=== PATIENT | female | born 1970 | race Caucasian/White ===

== ENCOUNTER → 2016-08-30 | Outpatient (REF) | payer OTHER, MEDICARE ==
[~2016-08-30] MED LIST: AUGM875T27 PO; BENADRYL PO; CALCIUM W/ VIT D PO; COLACE PO; COUM1TAB19 PO; IRON CR PO; OMEPPOW18 PO; VICODIN PO
== END ==
LOC: M LAB REF 16:35
PROVIDERS: ATTEND Physician Assistant
DX: J02.9 Acute pharyngitis, unspecified (principal)

== ENCOUNTER → 2016-11-30 | Outpatient (CLI) | payer OTHER, MEDICARE ==
[~2016-11-30] MED LIST changes: -AUGM875T27 PO; +AUGM875T28 PO
[2016-11-30 13:08] LABS: BASO % 0.4 % (0.0-1.0); EOS # 0.3 K/mm3 (0.0-0.50); EOS % 3.7 % (0.0-3.0); LARGE UNSTAINED CELL # 0.2 K/mm3 (0.0-0.4); LARGE UNSTAINED CELL % 2.3 % (0.0-4.0); LYMPH # 2.5 K/mm3 (1.5-4.5); LYMPH % 28.8 % (24.0-44.0); MEAN CORPUSCULAR HEMOGLOBIN 30.6 pg (27.0-33.0); MEAN CORPUSCULAR HGB CONC 33.6 g/dl (32.0-36.5); MEAN CORPUSCULAR VOLUME 90.9 fl (80.0-96.0); MONO # 0.4 K/mm3 (0.0-0.8); MONO % 4.6 % (0.0-5.0); NEUTROPHILS # 4.8 K/mm3 (1.8-7.7); NEUTROPHILS % 60.2 % (36.0-66.0); PLATELET COUNT, AUTOMATED 205 k/mm3 (150-450); RED CELL DISTRIBUTION WIDTH 12.8 % (11.5-14.5)
[2016-11-30 13:33] LABS: ANION GAP 9 MEQ/L (8-16); BLOOD UREA NITROGEN 8 MG/DL (7-18); CALCIUM LEVEL 8.8 MG/DL (8.5-10.1); CARBON DIOXIDE LEVEL 25 MEQ/L (21-32); CHLORIDE LEVEL 109 MEQ/L (98-107); CREATININE FOR GFR 0.74 MG/DL (0.55-1.02); GLOMERULAR FILTRATION RATE > 60.0 (>58); GLUCOSE, FASTING 92 MG/DL (70-105); SODIUM LEVEL 143 MEQ/L (136-145); URIC ACID 7.5 MG/DL (2.6-6.0)
[2016-11-30 13:35] LABS: ERYTHROCYTE SEDIMENTATION RATE 30 mm/hr (0-20)
[2016-12-02 00:07] LABS: Lyme Disease IgG/IgM Antibodie <0.91 ISR (0.00-0.90); Lyme Disease IgM Ab Quantitati <0.80 index (0.00-0.79); SJOGREN'S ANTI SS-A <0.2 AI (0.0-0.9); SJOGREN'S ANTI SS-B <0.2 AI (0.0-0.9)
== END ==
LOC: M WUC 09:39
PROVIDERS: ATTEND Family Medicine
DX: M25.50 Pain in unspecified joint (principal)

== ENCOUNTER → 2017-01-17 | Outpatient (CLI) | payer BC, OTHER, MEDICARE ==
--- NOTE | 2017-01-17 16:44 | REP ---
Clinical: Acute cough . Comparison: 12/02/2013 . Technique: PA and lateral. Findings: The mediastinum and cardiac silhouette are normal. The lung pfeiffer are clear and without acute consolidation, effusion, or pneumothorax. The skeletal structures are intact and normal. Impression: 1. No acute cardiopulmonary process. Signed by Jarrell Yoder MD 01/17/2017 04:35 P
== END ==
LOC: M WUC 16:21
PROVIDERS: ATTEND Family Medicine
DX: R05 Cough (principal)

== ENCOUNTER → 2017-09-08 | Outpatient (CLI) | payer BC, OTHER, MEDICARE | LOC: M PLARAD 09:36 | DX: M79.641 Pain in right hand (principal); M79.642 Pain in left hand | CPT/HCPCS: 73218 ==

== ENCOUNTER → 2017-11-10 | Outpatient (CLI) | payer BC, OTHER, MEDICARE ==
[2017-11-22 00:08] LABS: BABESIA MICROTI PCR Negative (Negative); E CHAFFEENSIS IgG TITER Negative (Neg:<1:64); E CHAFFEENSIS IgM TITER Negative (Neg:<1:20); HUMAN GRANULCYTIC EHRLIC IgG Negative (Neg:<1:64); HUMAN GRANULCYTIC EHRLIC IgM Negative (Neg:<1:20); Lyme Disease IgG/IgM Antibodie <0.91 ISR (0.00-0.90); Lyme Disease IgM Ab Quantitati <0.80 index (0.00-0.79)
== END ==
LOC: M WUC 10:57
DX: M25.50 Pain in unspecified joint (principal)
CPT/HCPCS: 36415

== ENCOUNTER → 2018-02-16 | Outpatient (CLI) | payer OTHER, BC, MEDICARE ==
[2018-02-16 13:07] LABS: BASO % 0.5 % (0.0-1.0); EOS # 0.4 10^3/uL (0.0-0.50); EOS % 4.6 % (0.0-3.0); HEMATOCRIT 44.5 % (36.0-47.0); HEMOGLOBIN 14.1 g/dl (12.0-15.5); IMMATURE GRANULOCYTE % 0.2 % (0-3.0); LYMPH # 2.5 10^3/uL (1.5-4.5); LYMPH % 29.3 % (24.0-44.0); MEAN CORPUSCULAR HEMOGLOBIN 29.6 pg (27.0-33.0); MEAN CORPUSCULAR HGB CONC 31.7 g/dl (32.0-36.5); MEAN CORPUSCULAR VOLUME 93.3 fl (80.0-96.0); MONO # 0.6 10^3/uL (0.0-0.8); MONO % 6.7 % (0.0-5.0); NEUTROPHILS % 58.7 % (36.0-66.0); PLATELET COUNT, AUTOMATED 216 10^3/uL (150-450); RED BLOOD COUNT 4.77 10^6/uL (4.00-5.40); RED CELL DISTRIBUTION WIDTH 12.7 % (11.5-14.5); WHITE BLOOD COUNT 8.5 10^3/uL (4.0-10.0)
[2018-02-16 13:54] LABS: ALBUMIN 3.3 GM/DL (3.2-5.2); ALBUMIN/GLOBULIN RATIO 0.94 (1.00-1.93); ALKALINE PHOSPHATASE 132 U/L (45-117); ALT/SGPT 20 U/L (12-78); ANION GAP 8 MEQ/L (8-16); AST/SGOT 15 U/L (7-37); BILIRUBIN,TOTAL 0.3 MG/DL (0.2-1.0); BLOOD UREA NITROGEN 13 MG/DL (7-18); CALCIUM LEVEL 8.4 MG/DL (8.5-10.1); CARBON DIOXIDE LEVEL 30 MEQ/L (21-32); CHLORIDE LEVEL 105 MEQ/L (98-107); CREATININE FOR GFR 0.81 MG/DL (0.55-1.30); FERRITIN 213 NG/ML (8-252); GLOMERULAR FILTRATION RATE > 60.0 (>58); GLUCOSE, FASTING 60 MG/DL (70-100); IRON (FE) 52 UG/DL (50-170); PERCENT SATURATION 21.1 % (13.2-45.0); PHOSPHORUS LEVEL 2.7 MG/DL (2.5-4.9); POTASSIUM SERUM 4.6 MEQ/L (3.5-5.1); SODIUM LEVEL 143 MEQ/L (136-145); TOTAL IRON BINDING CAPACITY 247 UG/DL (250-450); TOTAL PROTEIN 6.8 GM/DL (6.4-8.2)
[2018-02-16 14:55] LABS: TOTAL 25(OH) VITAMIN D 31.9 NG/ML (30.0-100.0)
== END ==
LOC: M WUC 10:02
DX: Z98.84 Bariatric surgery status (principal)

== ENCOUNTER → 2018-07-16 | Outpatient (CLI) | payer OTHER, BC, MEDICARE ==
[~2018-07-16] MED LIST changes: +BENA25TA10 PO; +CALCTAB29 PO; +MULT1TAB10 PO; +NYSTOI TOP; +PRAM0.126 PO; +PRED10TA2 PO; +STOO100C PO; +VITA500046 PO; +iron PO
[2018-07-16 10:07] LABS: BASO % 0.5 % (0.0-1.0); EOS # 0.2 10^3/uL (0.0-0.50); EOS % 2.7 % (0.0-3.0); HEMATOCRIT 44.1 % (36.0-47.0); HEMOGLOBIN 13.8 g/dl (12.0-15.5); LYMPH # 2.1 10^3/uL (1.5-4.5); LYMPH % 25.4 % (24.0-44.0); MEAN CORPUSCULAR HEMOGLOBIN 29.3 pg (27.0-33.0); MEAN CORPUSCULAR HGB CONC 31.3 g/dl (32.0-36.5); MEAN CORPUSCULAR VOLUME 93.6 fl (80.0-96.0); MONO # 0.5 10^3/uL (0.0-0.8); MONO % 5.5 % (0.0-5.0); NEUTROPHILS # 5.4 10^3/uL (1.8-7.7); NEUTROPHILS % 65.7 % (36.0-66.0); PLATELET COUNT, AUTOMATED 224 10^3/uL (150-450); RED BLOOD COUNT 4.71 10^6/uL (4.00-5.40); WHITE BLOOD COUNT 8.2 10^3/uL (4.0-10.0)
[2018-07-16 10:31] LABS: ALBUMIN 3.4 GM/DL (3.2-5.2); ALT/SGPT 26 U/L (12-78); BILIRUBIN,TOTAL 0.5 MG/DL (0.2-1.0); BLOOD UREA NITROGEN 11 MG/DL (7-18); CARBON DIOXIDE LEVEL 30 MEQ/L (21-32); CHLORIDE LEVEL 104 MEQ/L (98-107); GLOMERULAR FILTRATION RATE > 60.0 (>58); GLUCOSE, FASTING 92 MG/DL (70-100); POTASSIUM SERUM 4.9 MEQ/L (3.5-5.1); SODIUM LEVEL 141 MEQ/L (136-145); TOTAL PROTEIN 6.8 GM/DL (6.4-8.2)
== END ==
LOC: M WUC 08:43
PROVIDERS: ATTEND Family Medicine
DX: Z01.812 Encounter for preprocedural laboratory examination (principal)

== ENCOUNTER → 2018-07-16 | Outpatient (CLI) | payer BC, OTHER, MEDICARE ==
--- NOTE | 2018-07-16 14:35 | ECGEPIP ---
Stationary ECG Study [facility] Test Date: 2018-07-16 Pat Name: BRIAN CR Department: Room: - Gender: F Dietitian Therapeutic: WILMA : 1970 Requested By: Albert Johnson Order Number: [id number] Reading MD: Minesh Little Measurements Intervals [place] Rate: 78 P: 73 AL: 146 QRS: 70 QRSD: 121 T: 100 QT: 378 QTc: 431 Interpretive Statements SINUS RHYTHM Intraventricular conduction delay NONSPECIFIC T-WAVE ABNORMALITY Comparison tracing not on file Electronically Signed On 07-16-2018 14:35:33 EST by Minesh Little
== END ==
LOC: M EKG 10:22
PROVIDERS: ATTEND Family Medicine
DX: Z01.812 Encounter for preprocedural laboratory examination (principal)

== ENCOUNTER 2018-07-26 05:50 | Day surgery (SDC) | payer BC, OTHER, MEDICARE ==
[~2018-07-26] VITALS: Ht 165.1 cm; Wt 193.9 kg
[2018-07-26] MEDS ORDERED: LR 1,000 ML IV ONE (06:00)
[2018-07-26] MEDS ORDERED: PERCOCET 5MG/325MG TAB PO ONE (06:00)
[2018-07-26] MEDS ORDERED: LOVE1INJ SC (06:27)
[2018-07-26 06:39] LABS: INR 1.07
[2018-07-26] MEDS ORDERED: LIDOCAINE 2% INJ 100 MG/5 ML SDV (FOR ANES.) As Ordered ONE (06:51)
[2018-07-26] MEDS ORDERED: ONDANSETRON 4MG/2ML VIAL (J2405) As Ordered ONE (06:51)
[2018-07-26] MEDS ORDERED: PROPOFOL 200 MG/20 ML VIAL As Ordered ONE (06:51)
[2018-07-26] MEDS ORDERED: dexameTHASONE 4 MG/ML 1ML VIAL (J1100) As Ordered ONE (06:51)
[2018-07-26] MEDS ORDERED: fentaNYL 100 MCG/2 ML INJECTION (J3010) As Ordered ONE (06:52)
[2018-07-26] MEDS ORDERED: MIDAZOLAM INJ 2 MG/2 ML VIAL (J2250) As Ordered ONE (06:52)
[2018-07-26] MEDS ORDERED: KETOROLAC 60 MG/2 ML VIAL (J1885) As Ordered ONE (06:53)
[2018-07-26] MEDS ORDERED: BUPIVACAINE/EPIN 0.25% 30 ML VIAL As Ordered ONE (07:12)
[2018-07-26] MEDS ORDERED: ACETAMINOPHEN 1000MG 100ML IV BTL (OFIRMEV) (J0131 PER 10MG) As Ordered ONE (08:14)
[2018-07-26] MEDS ORDERED: oxyCODONE 5MG TAB PO PRN (08:30)
[2018-07-26] MEDS ORDERED: fentaNYL 100 MCG/2 ML INJECTION (J3010) IV PRN (08:30)
[2018-07-26] MEDS ORDERED: LR 1,000 ML IV SCH (08:45)
[2018-07-26] MEDS ORDERED: PERCOCET 5MG/325MG TAB PO PRN (08:45)
[2018-07-26 09:30] VITALS: BP 166/66
--- NOTE | 2018-07-26 13:01 | RO ---
DATE OF PROCEDURE: 07/26/2018 PREOPERATIVE DIAGNOSIS: Right upper extremity median neuropathy. POSTOPERATIVE DIAGNOSIS: Right upper extremity median neuropathy. PROCEDURE PERFORMED: Right open carpal tunnel release. SURGEON: Dr. Yash King PATIENT REGISTRATION REPRESENTATIVE: ANESTHESIA: Local, monitored anesthesia care (MAC). ESTIMATED BLOOD LOSS: Less than 15 mL, replaced with crystalloid. COMPLICATIONS: None. 3.5 loupe magnification was utilized for the case. INDICATIONS: Paresthesias right upper extremity. Electrodiagnostic studies reflect median neuropathy. The patient has failed to improve with conservative management and elected for operative intervention. CONSENT: Reviewed in detail including a naye discussion of the pathology involved, the procedure proposed, alternatives including doing nothing and the risks including, but not limited to pain, failure, infection, bleeding, blood loss, incomplete relief of symptoms, nerve injury, need for additional surgery, medical issues such as pulmonary embolism, and need for bridge therapy. The patient agrees to proceed. OPERATIVE COURSE: Identified in holding area, site and side verified, brought to the operating room once she was sedated and was prepped with alcohol. The line of the incision was based on the fourth ray and infiltrated with 0.25% Marcaine with epinephrine. I made the incision with a 15 blade knife and developed down through skin and subcuticular tissues to the palmaris fascia which was divided exposing the transverse carpal ligament. Next, the transverse carpal ligament was divided with a 15 blade entering the carpal tunnel. Dissection was continued sharply proximally and distally under direct visualization. I verified complete release of the transverse carpal ligament by palpating with a blunt probe. Next, once this was accomplished, irrigation was accomplished and the wound was closed with interrupted nylon stitch. Dressing was applied and the patient was then moved to recovery room in good condition. For further details, please refer to the medical record.
== END 2018-07-26 09:30 | disposition home or self-care (01) ==
LOC: M SDC 05:50
PROVIDERS: ATTEND Orthopaedic Surgery
DX: G56.01 Carpal tunnel syndrome, right upper limb (principal); K21.9 Gastro-esophageal reflux disease without esophagitis; M15.0 Primary generalized (osteo)arthritis; R21 Rash and other nonspecific skin eruption; E66.01 Morbid (severe) obesity due to excess calories; Z68.44 Body mass index [BMI] 60.0-69.9, adult; Z79.899 Other long term (current) drug therapy; Z79.01 Long term (current) use of anticoagulants; Z86.711 Personal history of pulmonary embolism; Z95.828 Presence of other vascular implants and grafts; Z87.891 Personal history of nicotine dependence; Z79.52 Long term (current) use of systemic steroids; Z98.84 Bariatric surgery status; Z78.0 Asymptomatic menopausal state
CPT/HCPCS: 36415; 64721; 85610; J0131; J1100; J1885; J2250; J2405; J3010

== ENCOUNTER → 2018-11-08 | Outpatient (CLI) | payer BC, OTHER, MEDICARE ==
[~2018-11-08] MED LIST changes: +LOVE1INJ SC
--- NOTE | 2018-11-08 14:10 | REP ---
Cervical spine seven views: Vertebral body heights, interspacing alignment are normal C1-C7. T1 is obscured by the shoulders. There is no listhesis on flexion or extension. The facets are normally aligned. The prevertebral soft tissues are. There are surgical clips in the soft tissues of the neck on the right. There is no bony foraminal encroachment. Impression: Negative cervical spine C1-C7. Kilos obscured by the shoulders. Follow-up CT or MRI might be considered to evaluate T1. There are surgical clips in the soft tissues on the right. Electronically Signed by Rajinder Fortune MD 11/08/2018 11:06 A
== END ==
LOC: M WUC 09:15
PROVIDERS: ATTEND Internal Medicine Rheumatology
DX: M79.603 Pain in arm, unspecified (principal)

== ENCOUNTER → 2019-06-06 | Outpatient (CLI) | payer BC, OTHER, MEDICARE ==
[~2019-06-06] MED LIST changes: +MM S100C PO; -STOO100C PO
[2019-06-06 12:39] LABS: BASO # 0.1 10^3/uL (0.0-0.2); BASO % 0.6 % (0.0-1.0); EOS # 0.2 10^3/uL (0.0-0.5); EOS % 2.6 % (0.0-3.0); HEMATOCRIT 44.9 % (36.0-47.0); HEMOGLOBIN 13.3 g/dl (12.0-15.5); LYMPH # 1.9 10^3/uL (1.5-5.0); LYMPH % 20.5 % (24.0-44.0); MEAN CORPUSCULAR HEMOGLOBIN 27.2 pg (27.0-33.0); MEAN CORPUSCULAR HGB CONC 29.6 g/dl (32.0-36.5); MEAN CORPUSCULAR VOLUME 91.8 fl (80.0-96.0); MONO # 0.7 10^3/uL (0.0-0.8); MONO % 7.7 % (0.0-5.0); NEUTROPHILS # 6.2 10^3/uL (1.5-8.5); PLATELET COUNT, AUTOMATED 219 10^3/uL (150-450); RED BLOOD COUNT 4.89 10^6/uL (4.00-5.40); WHITE BLOOD COUNT 9.1 10^3/uL (4.0-10.0)
[2019-06-06 12:46] LABS: ALBUMIN 3.3 GM/DL (3.2-5.2); ALT/SGPT 20 U/L (12-78); BILIRUBIN,TOTAL 0.3 MG/DL (0.2-1.0); BLOOD UREA NITROGEN 16 MG/DL (7-18); CARBON DIOXIDE LEVEL 29 MEQ/L (21-32); CHLORIDE LEVEL 107 MEQ/L (98-107); CREATININE FOR GFR 0.73 MG/DL (0.55-1.30); GLOMERULAR FILTRATION RATE > 60.0 (>51); GLUCOSE, FASTING 82 MG/DL (70-100); POTASSIUM SERUM 4.8 MEQ/L (3.5-5.1); SODIUM LEVEL 142 MEQ/L (136-145); TOTAL PROTEIN 6.6 GM/DL (6.4-8.2)
[2019-06-06 14:07] LABS: ERYTHROCYTE SEDIMENTATION RATE 32 mm/hr (0-30)
== END ==
LOC: M WUC 09:32
PROVIDERS: ATTEND Family Medicine
DX: M25.50 Pain in unspecified joint (principal)

== ENCOUNTER → 2019-11-05 | Outpatient (CLI) | payer BC, OTHER, MEDICARE ==
[2019-11-05 13:03] LABS: HEMATOCRIT 42.3 % (36.0-47.0); HEMOGLOBIN 12.8 g/dl (12.0-15.5); MEAN CORPUSCULAR HEMOGLOBIN 27.2 pg (27.0-33.0); MEAN CORPUSCULAR HGB CONC 30.3 g/dl (32.0-36.5); MEAN CORPUSCULAR VOLUME 89.8 fl (80.0-96.0); PLATELET COUNT, AUTOMATED 234 10^3/uL (150-450); RED BLOOD COUNT 4.71 10^6/uL (4.00-5.40)
[2019-11-05 13:32] LABS: ERYTHROCYTE SEDIMENTATION RATE 35 mm/hr (0-30)
[2019-11-05 13:35] LABS: ALBUMIN 3.3 GM/DL (3.2-5.2); ALT/SGPT 16 U/L (12-78); BILIRUBIN,TOTAL 0.2 MG/DL (0.2-1.0); BLOOD UREA NITROGEN 15 MG/DL (7-18); CALCIUM LEVEL 9.3 MG/DL (8.5-10.1); CARBON DIOXIDE LEVEL 31 MEQ/L (21-32); CHLORIDE LEVEL 109 MEQ/L (98-107); CREATININE FOR GFR 0.74 MG/DL (0.55-1.30); GLOMERULAR FILTRATION RATE > 60.0 (>51); GLUCOSE, FASTING 77 MG/DL (70-100); POTASSIUM SERUM 4.6 MEQ/L (3.5-5.1); SODIUM LEVEL 141 MEQ/L (136-145); TOTAL PROTEIN 6.8 GM/DL (6.4-8.2)
[2019-11-05 14:09] LABS: HEMOGLOBIN A1c 6.2 %
== END ==
LOC: M WUC 09:08
PROVIDERS: ATTEND Family Medicine
DX: R70.0 Elevated erythrocyte sedimentation rate (principal); Z79.899 Other long term (current) drug therapy

== ENCOUNTER → 2020-04-20 | Outpatient (CLI) | payer MEDICARE, OTHER, BC ==
[2020-04-20 10:35] LABS: HEMOGLOBIN 13.7 g/dl (12.0-15.5); MEAN CORPUSCULAR HEMOGLOBIN 27.3 pg (27.0-33.0); MEAN CORPUSCULAR HGB CONC 30.4 g/dl (32.0-36.5); MEAN CORPUSCULAR VOLUME 89.8 fl (80.0-96.0); PLATELET COUNT, AUTOMATED 264 10^3/uL (150-450); RED BLOOD COUNT 5.01 10^6/uL (4.00-5.40); WHITE BLOOD COUNT 8.1 10^3/uL (4.0-10.0)
[2020-04-20 10:52] LABS: ERYTHROCYTE SEDIMENTATION RATE 46 mm/hr (0-30)
[2020-04-20 11:17] LABS: ALBUMIN 3.5 GM/DL (3.2-5.2); ALT/SGPT 22 U/L (12-78); BILIRUBIN,TOTAL 0.5 MG/DL (0.2-1.0); BLOOD UREA NITROGEN 12 MG/DL (7-18); CALCIUM LEVEL 9.4 MG/DL (8.5-10.1); CARBON DIOXIDE LEVEL 29 MEQ/L (21-32); CHLORIDE LEVEL 106 MEQ/L (98-107); CREATININE FOR GFR 0.77 MG/DL (0.55-1.30); GLOMERULAR FILTRATION RATE > 60.0 (>51); GLUCOSE, FASTING 88 MG/DL (70-100); POTASSIUM SERUM 4.8 MEQ/L (3.5-5.1); SODIUM LEVEL 140 MEQ/L (136-145)
== END ==
LOC: M WUC 08:36
PROVIDERS: ATTEND Family Medicine
DX: R70.0 Elevated erythrocyte sedimentation rate (principal); Z79.899 Other long term (current) drug therapy

== ENCOUNTER → 2020-08-20 | Outpatient (REF) | payer MEDICARE, OTHER ==
[2020-08-20 17:19] LABS: TOTAL PROTEIN,RANDOM URINE 17.2 MG/DL (0.0-12.0)
[2020-08-20 17:21] LABS: ALT/SGPT 20 U/L (12-78); BILIRUBIN,DIRECT 0.1 MG/DL (0.0-0.2); BILIRUBIN,TOTAL 0.3 MG/DL (0.2-1.0); BLOOD UREA NITROGEN 15 MG/DL (7-18); C REACTIVE PROTEIN QUANTITATIV 2.11 MG/DL (0.00-0.30); CARBON DIOXIDE LEVEL 26 MEQ/L (21-32); CHLORIDE LEVEL 106 MEQ/L (98-107); COMPLEMENT C3 161 MG/DL (90-180); COMPLEMENT C4 22 MG/DL (10-40); CPK CREATINE PHOSPHOKINASE 56 U/L (26-192); CREATININE FOR GFR 0.83 MG/DL (0.55-1.30); GLOMERULAR FILTRATION RATE > 60.0 (>51); GLUCOSE, FASTING 121 MG/DL (70-100); IRON (FE) 38 UG/DL (50-170); MAGNESIUM LEVEL 2.6 MG/DL (1.8-2.4); PHOSPHORUS LEVEL 3.8 MG/DL (2.5-4.9); POTASSIUM SERUM 4.3 MEQ/L (3.5-5.1); RHEUMATOID FACTOR QUANT 11.5 IU/ML (<15.0); SODIUM LEVEL 140 MEQ/L (136-145); TOTAL PROTEIN 7.6 GM/DL (6.4-8.2)
[2020-08-20 17:26] LABS: BASO # 0.1 10^3/uL (0.0-0.2); BASO % 0.4 % (0.0-1.0); EOS # 0.2 10^3/uL (0.0-0.5); EOS % 1.5 % (0.0-3.0); HEMATOCRIT 47.4 % (36.0-47.0); HEMOGLOBIN 14.9 g/dl (12.0-15.5); LYMPH # 3.1 10^3/uL (1.5-5.0); LYMPH % 23.5 % (24.0-44.0); MEAN CORPUSCULAR HEMOGLOBIN 27.4 pg (27.0-33.0); MEAN CORPUSCULAR HGB CONC 31.4 g/dl (32.0-36.5); MEAN CORPUSCULAR VOLUME 87.3 fl (80.0-96.0); MONO # 0.6 10^3/uL (0.0-0.8); MONO % 4.9 % (2.0-8.0); NEUTROPHILS # 9.1 10^3/uL (1.5-8.5); NEUTROPHILS % 69.4 % (36.0-66.0); PLATELET COUNT, AUTOMATED 322 10^3/uL (150-450); RED BLOOD COUNT 5.43 10^6/uL (4.00-5.40); TOTAL 25(OH) VITAMIN D 36.8 NG/ML (30.0-100.0); WHITE BLOOD COUNT 13.1 10^3/uL (4.0-10.0)
[2020-08-20 17:27] LABS: VITAMIN B12 LEVEL 637 PG/ML (247-911)
[2020-08-20 18:16] LABS: APPEARANCE, URINE HAZY (CLEAR); BACTERIA, URINE AUTO 1+ (NEGATIVE); BILIRUBIN, URINE AUTO NEGATIVE (NEGATIVE); BLOOD, URINE BLOOD NEGATIVE (NEGATIVE); COLOR, URINE YELLOW (YELLOW); GLUCOSE, URINE (UA) AUTO NEGATIVE (NEGATIVE); KETONE, URINE AUTO NEGATIVE (NEGATIVE); LEUKOCYTE ESTERASE, URINE AUTO NEGATIVE (NEGATIVE); MUCUS, URINE SMALL (NEGATIVE); NITRITE, URINE AUTO POSITIVE (NEGATIVE); PROTEIN, URINE AUTO NEGATIVE (NEGATIVE); RBC, URINE AUTO 4 /HPF (0-3); SPECIFIC GRAVITY URINE AUTO 1.016 (1.002-1.035); SQUAMOUS EPITHELIAL CELL UR AU 1 /HPF (0-6); WBC, URINE AUTO 4 /HPF (0-3)
[2020-08-20 18:49] LABS: ERYTHROCYTE SEDIMENTATION RATE 27 mm/hr (0-30)
[2020-08-24 10:57] LABS: ALBUMIN 4.07 GM/DL (3.29-5.55); ALBUMIN % 53.6 % (55.8-66.1); ALPHA-1-GLOBULIN % 5.7 % (2.9-4.9); ALPHA-1-GLOBULINS 0.43 GM/DL (0.17-0.41); ALPHA-2-GLOBULINS 1.17 GM/DL (0.42-0.99); ALPHA-2-GLOBULINS % 15.4 % (7.1-11.8); BETA-1-GLOBULINS 0.53 GM/DL (0.28-0.60); BETA-2-GLOBULINS 0.49 GM/DL (0.19-0.55); BETA-2-GLOBULINS % 6.5 % (3.2-6.5); GAMMA GLOBULIN % 11.8 % (11.1-18.8)
[2020-08-26 10:51] LABS: PTT LUPUS TYPE ANTICOAG SCREEN 2.6 (0-1.2)
[2020-08-26 10:58] LABS: LUPUS CONFIRM RATIO 1.4
[2020-08-26 11:02] LABS: NORMALIZED RATIO 1.86 (0.00-1.20)
[2020-08-27 15:07] LABS: ANA (HEP2) Positive (.); ANTI CENTROMERE ANTIBODY <0.2 AI (0.0-0.9); ANTI DS-DNA AB Negative (Negative); ANTI SCLERODERMA ANTIBODIES <0.2 AI (0.0-0.9); ANTI SMITH(Sm) AB <20 Units (<20); ANTI-HISTONE ANTIBODIES 0.3 Units (0.0-0.9); ANTI-U1 RNP AB <20 Units (<20); BETA-2 GLYCOPROTEIN I ABY IGA <9 (0-25); BETA-2 GLYCOPROTEIN I ABY IGG 20 (0-20); BETA-2 GLYCOPROTEIN I ABY IGM >150 (0-32); CARDIOLIPIN IGA ANTIBODY <9 APL U/mL (0-11); CARDIOLIPIN IGG ANTIBODY 27 GPL U/mL (0-14); CARDIOLIPIN IGM ANTIBODY 118 MPL U/mL (0-12); COMPLEMENT TOTAL (CH50) > 60 U/mL (>41); CYCLIC CITRULLINATED PEPTIDE 6 units (0-19); SSA SJOGRENS A <0.2 AI (0.0-0.9); SSB SJOGRENS B <0.2 AI (0.0-0.9)
[2020-08-28 03:12] LABS: HEXAGONAL PHASE PHOSPHOLIPID 9 sec (0-11)
== END ==
LOC: M SFHCRHEU 15:31
PROVIDERS: ATTEND Internal Medicine
DX: M06.4 Inflammatory polyarthropathy (principal); M79.10 Myalgia, unspecified site; Z79.899 Other long term (current) drug therapy
CPT/HCPCS: 80048; 80076; 81001; 82306; 82550; 82570; 82607; 83520; 83540; 83735; 84100; 84156; 84165; 85025; 85598; 85613; 85652; 85730; 86038; 86140; 86146; 86147; 86160; 86162; 86200; 86225; 86235; 86255; 86431; G0463

== ENCOUNTER → 2020-08-25 | Outpatient (CLI) | payer MEDICARE, OTHER ==
--- NOTE | 2020-08-25 12:20 | REPPI ---
INDICATION: INFLAMMATORY ARTHRITIS. COMPARISON: None. FINDINGS: Right hand: There is rather symmetric appearing intra digital joint space narrowing and particularly affecting the DIP joints of the 3rd and 5th digits. There is minimal marginal osteophytosis seen involving the DIP joints of the 2nd through 5th digits. There is no evidence of periarticular osteopenia and there are no marginal erosions. There is no evidence of an acute fracture, dislocation, or subluxation. Left hand: There is moderate rather symmetric appearing intra digital joint space narrowing affecting all DIP joints. More mild to moderate rather symmetric appearing joint space narrowing is seen involving the PIP joints of digits 2 through 5. The interphalangeal joint of the 1st digit is seen with mild symmetric narrowing. Mild marginal osteophytosis seen involving all DIP joints. There are no marginal erosions and there is no evidence of periarticular osteopenia. There is no acute fracture, dislocation, or subluxation. IMPRESSION: Degenerative changes as described above. <Electronically signed by Rashad Perry > 08/25/20 [id number]
--- NOTE | 2020-08-25 12:49 | REPPI ---
INDICATION: INFLAMMATORY ARTHRITIS. COMPARISON: None. TECHNIQUE: Four views of each foot FINDINGS: Right foot: Mild to moderate intra digital degenerative changes are seen without prominent marginal osteophytosis, marginal erosions, or naye periarticular osteopenia. There is slightly asymmetric intra digital joint space narrowing. Moderate degenerative changes are seen throughout the midfoot. Large plantar and retrocalcaneal heel spurs are present. There is no evidence of an acute fracture. Left foot: Mild to moderate intra digital degenerative changes are seen without prominent marginal osteophytosis, marginal erosions, or naye periarticular osteopenia. Mild to moderate somewhat asymmetric intra digital joint space narrowing is present. Mild to moderate degenerative changes seen throughout the midfoot. Large plantar and retrocalcaneal heel spurs are present. There is no evidence of acute fracture. IMPRESSION: Chronic changes seen bilaterally as described above. <Electronically signed by Rashad Perry > 08/25/20 [id number]
--- NOTE | 2020-08-25 13:11 | REPPI ---
INDICATION: INFLAMMATORY ARTHRITIS. COMPARISON: None. TECHNIQUE: Four views each ankle FINDINGS: Right ankle: There is no acute fracture or destructive osseous lesion. The mortise is intact. There is either an accessory ossicle or an old healed fracture arising from the distal fibular tip. Left ankle: There is no acute fracture or destructive osseous lesion. The mortise is intact. IMPRESSION: No acute abnormality is noted. Findings as described above. Please review the bilateral foot report for more information. <Electronically signed by Rashad Perry > 08/25/20 [id number]
--- NOTE | 2020-08-25 13:13 | REPPI ---
INDICATION: INFLAMMATORY ARTHRITIS. COMPARISON: None TECHNIQUE: Four views each wrist FINDINGS: Right wrist: There is no acute fracture or destructive osseous lesion. Left wrist: There is no acute fracture or destructive osseous lesion. IMPRESSION: Negative bilateral wrist study. <Electronically signed by Rashad Perry > 08/25/20 [id number]
== END ==
LOC: M PLAIMG 10:37
PROVIDERS: ATTEND Internal Medicine
DX: M06.4 Inflammatory polyarthropathy (principal); M19.041 Primary osteoarthritis, right hand; M19.042 Primary osteoarthritis, left hand

== ENCOUNTER → 2021-02-04 | Outpatient (REF) | payer MEDICARE, OTHER ==
[2021-02-04 16:02] LABS: BASO % 0.5 % (0.0-1.0); EOS # 0.2 10^3/uL (0.0-0.5); EOS % 1.7 % (0.0-3.0); HEMATOCRIT 46.5 % (36.0-47.0); HEMOGLOBIN 14.8 g/dl (12.0-15.5); LYMPH % 22.6 % (24.0-44.0); MEAN CORPUSCULAR HEMOGLOBIN 28.1 pg (27.0-33.0); MEAN CORPUSCULAR HGB CONC 31.8 g/dl (32.0-36.5); MEAN CORPUSCULAR VOLUME 88.2 fl (80.0-96.0); MONO # 0.5 10^3/uL (0.0-0.8); MONO % 5.4 % (2.0-8.0); NEUTROPHILS % 69.3 % (36.0-66.0); PLATELET COUNT, AUTOMATED 252 10^3/uL (150-450); RED BLOOD COUNT 5.27 10^6/uL (4.00-5.40); WHITE BLOOD COUNT 8.7 10^3/uL (4.0-10.0)
[2021-02-04 16:10] LABS: APPEARANCE, URINE CLEAR (CLEAR); BACTERIA, URINE AUTO NEGATIVE (NEGATIVE); BILIRUBIN, URINE AUTO NEGATIVE (NEGATIVE); BLOOD, URINE BLOOD NEGATIVE (NEGATIVE); COLOR, URINE YELLOW (YELLOW); GLUCOSE, URINE (UA) AUTO NEGATIVE (NEGATIVE); KETONE, URINE AUTO NEGATIVE (NEGATIVE); LEUKOCYTE ESTERASE, URINE AUTO NEGATIVE (NEGATIVE); MUCUS, URINE SMALL (NEGATIVE); NITRITE, URINE AUTO NEGATIVE (NEGATIVE); PROTEIN, URINE AUTO NEGATIVE (NEGATIVE); RBC, URINE AUTO 0 /HPF (0-3); SQUAMOUS EPITHELIAL CELL UR AU 1 /HPF (0-6); UROBILINOGEN, URINE AUTO 0.2 mg/dL (0.0-2.0); WBC, URINE AUTO 1 /HPF (0-3)
[2021-02-04 16:26] LABS: CREATININE,RANDOM URINE 50.7 MG/DL; TOTAL PROTEIN,RANDOM URINE 8.1 MG/DL (0.0-12.0)
[2021-02-04 16:28] LABS: ALBUMIN 3.7 GM/DL (3.2-5.2); ALT/SGPT 19 U/L (12-78); BILIRUBIN,DIRECT 0.1 MG/DL (0.0-0.2); BILIRUBIN,TOTAL 0.3 MG/DL (0.2-1.0); BLOOD UREA NITROGEN 12 MG/DL (7-18); C REACTIVE PROTEIN QUANTITATIV 1.22 MG/DL (0.00-0.30); CALCIUM LEVEL 9.3 MG/DL (8.5-10.1); CARBON DIOXIDE LEVEL 29 MEQ/L (21-32); CHLORIDE LEVEL 106 MEQ/L (98-107); COMPLEMENT C3 162 MG/DL (90-180); COMPLEMENT C4 26 MG/DL (10-40); CREATININE FOR GFR 0.74 MG/DL (0.55-1.30); GLOMERULAR FILTRATION RATE > 60.0 (>51); GLUCOSE, FASTING 92 MG/DL (70-100); IRON (FE) 42 UG/DL (50-170); MAGNESIUM LEVEL 2.1 MG/DL (1.8-2.4); POTASSIUM SERUM 4.3 MEQ/L (3.5-5.1); SODIUM LEVEL 140 MEQ/L (136-145); TOTAL PROTEIN 7.4 GM/DL (6.4-8.2)
[2021-02-04 17:34] LABS: ERYTHROCYTE SEDIMENTATION RATE 9 mm/hr (0-30)
[2021-02-08 15:07] LABS: ANTI DS-DNA AB Negative (Negative); COMPLEMENT TOTAL (CH50) > 60 U/mL (>41)
== END ==
LOC: M SFHCRHEU 12:51
PROVIDERS: ATTEND Internal Medicine
DX: M32.19 Other organ or system involvement in systemic lupus erythematosus (principal); E61.1 Iron deficiency; M70.60 Trochanteric bursitis, unspecified hip
CPT/HCPCS: 36415; 80048; 80076; 81001; 82570; 83540; 83735; 84156; 85025; 85652; 86140; 86160; 86162; 86225; G0463

== ENCOUNTER 2021-04-17 12:07 | Inpatient (IN) | payer MEDICARE, OTHER ==
[~2021-04-17] VITALS: Ht 172.7 cm; Wt 189.7 kg
--- OUTSIDE RECORDS SUMMARY | 2021-04-17 12:15 | CCD ---
Author Author [facility] Organization [facility] Address Unknown Phone Unavailable Care Team Providers Care Coffee Host Name Role Phone Flora Spencer Unavailable PROBLEMS Type Condition ICD9-CM Code [id number] Code Onset Dates Condition S tatus W/U Status Risk SNOMED Code Notes Problem Morbid obesity 278.01 Active confirmed 22598 6002 Problem Primary hypercoagulable state 289.81 Active confirm ed 25912197 Problem Anxiety state, unspecified 300.00 Active confirmed 374326521 Problem Personal history of venous thrombosis and embolism V12.51 Active confirmed 078064370 Problem Nondependent tobacco use disorder 305.1 Active confirmed 781609250 Problem Pain of upper extremity, unspecified laterality M7 9.603 Active confirmed 300703053 Problem Generalized osteoarthritis M15.9 Active confirmed 809585883 Problem Depressive disorder, not elsewhere classified 311 Active confirmed 91558191 Problem 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 Active confirmed 4 89489577 Problem Hypertension, benign 401.1 Active confirmed 28026830 Problem 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 Active confirmed 774893991 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 Active confirmed 00627581291629904 Problem Systemic lupus erythematosus with other organ involvement, unspecified SLE type M32.19 Active confirmed 36160432 Problem Antiphospholipid antibody syndrome D68.61 Activ e confirmed 56153126 ALLERGIES No Known Allergies ENCOUNTERS from 1970 to 2021-03-05 Encounter Location Date Provider Diagnosis [facility] Rheumatology [address] [place] [address] [place] [id number] Feb, Flora Spencer Systemic lupus erythematosus with other organ involvement, unspecified SLE type M32.19 IMMUNIZATIONS No Information SOCIAL HISTORY Tobacco Use: Social History Observation Description Date Details (start date - stop date) Current Smoker Sex Assigned At : Social History Observation Description Sex Assigned At Unknown Alcohol Screening: Question Answer Notes Did you have a drink containing alcohol in the past year? Ye s Points 3 Interpretation Positive How often did you have six or more drinks on one occas ion in the past year? Never (0 points) How many drinks did you have on a typica l day when you were drinking in the past year? 1 or 2 (0 points) How often did you have a drink containing alcohol in t he past year? Two to three times per week (3 points) Tobacco Use: Question Answer Notes Are you a: current smoker How many cigarettes a day do you smoke? 6-10 does not smoke every day REASON FOR REFERRAL No Information VITAL SIGNS No information MEDICATIONS Medication SIG (Take, Route, Frequency, Duration) Notes Start Da te End Date Status Multi For Her - 1 Tablet Orally once daily Active Tylenol Extra Strength 500 MG 2 tablets as needed Oral ly every 8 hours as needed Active Benadryl 25 MG 2 tablets Orally as needed for sleep Active Nystatin 245490 UNIT/GM as directed External Daily Active Ferrous Sulfate 325 (65 Fe) MG 2 tablet Orally once a day Active Docusate Sodium 50 MG 2 capsules as needed Orally Once a day Active Pramipexole Dihydrochloride 0.125 MG 1 tablet Oral Once a day, u p to 2 daily Active Warfarin Sodium 3 MG 1 tablet Monday through , and 4 mg on Monday Oral Active Calcium + D 600-200 MG-UNIT 1200 MG Orally Once a day Active Zinc 50 MG 1 tablet Orally Once a day for 30 day(s) Jan Active Vitamin D 1000 units 1 tablet Orally daily for 30 day(s) Active Oxygen 2L 2 litres nasal cannula qHS for 8-10h during slee p for 30 day(s) Nov, Active predniSONE 10 MG 1/2 to 1 tablet Oral Daily Active Plaquenil 200 MG 1 tab Orally bid for 90 day(s) Oct, Active PROCEDURES No Information RESULTS No Results REASON FOR VISIT Medication Refill Request: Hydroxychloroquine MEDICAL (GENERAL) HISTORY Type Description Date Medical History Protein C & S deficency Medical History Morbid Obestiy Medical History Hypertension Medical History Lipedema Medical History Multi-vitamin deficency Medical History Chronic anti-coagulation Medical History PE x 2 Medical History DVT hx Medical History Depression Medical History Anxiety Medical History Intertrigo Medical History Unconfirmed sleep apnea Medical History Anemia Medical History Arthritis Surgical History [place] Filter 1997 Surgical History Tonsils and adenoids 1975 Surgical History Gastric bypass 06/02/2010 Surgical History Cholecystectomy 2013 Surgical History Right carpal tunnel release 2019 Hospitalization History Surgery related Goals Section No Information Health Concerns No Information MEDICAL EQUIPMENT No Information MENTAL STATUS No Information FUNCTIONAL STATUS No Information ASSESSMENTS Encounter Date Diagnosis Assessment Notes Treatment Notes Treatm ent Clinical Notes Feb, Systemic lupus erythematosus with other organ involvement, unspecified SLE type (ICD-10 - M32.19) PLAN OF TREATMENT Medication Medication Name Sig Start Date Stop Date Plaquenil 200 MG 1 tab Orally bid for 90 day(s) Oct, Next Appt Details Provider Name:Flora Spencer, 2021-06-07 11:45:00 AM, [address] [place] [address], [place], [place], [facility] [phone] Insurance Providers Payer Name Payer Address Payer Phone Insured Name Patient Relati onship to Insured Coverage Start Date Coverage End Date MEDICARE Part A and B [address] [facility] [phone] BRIAN CR [facility] [address] [facility] [id number] BRIAN CR [id number]
--- OUTSIDE RECORDS SUMMARY | 2021-04-17 12:15 | CCD ---
Author Author [facility] Organization [facility] Address Unknown Phone Unavailable Care Team Providers Care Registered Medical Assistant Name Role Phone Flora Spencer Unavailable PROBLEMS Type Condition ICD9-CM Code VQN16-OF Code Onset Dates Condition S tatus W/U Status Risk SNOMED Code Notes Problem Morbid obesity 278.01 Active confirmed 44796 6002 Problem Primary hypercoagulable state 289.81 Active confirm ed 83793465 Problem Anxiety state, unspecified 300.00 Active confirmed 662846422 Problem Personal history of venous thrombosis and embolism V12.51 Active confirmed 676904284 Problem Nondependent tobacco use disorder 305.1 Active confirmed 481496601 Problem Pain of upper extremity, unspecified laterality M7 9.603 Active confirmed 725314144 Problem Generalized osteoarthritis M15.9 Active confirmed 171590040 Problem Depressive disorder, not elsewhere classified 311 Active confirmed 06847368 Problem 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 Active confirmed 4 13350963 Problem Hypertension, benign 401.1 Active confirmed 97447879 Problem 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 Active confirmed 221657661 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 Active confirmed 19509755946150888 Problem Systemic lupus erythematosus with other organ involvement, unspecified SLE type M32.19 Active confirmed 59367725 Problem Antiphospholipid antibody syndrome D68.61 Activ e confirmed 45180691 ALLERGIES No Known Allergies ENCOUNTERS from 1970 to 2021-02-18 Encounter Location Date Provider Diagnosis [facility] Rheumatology [address] [place] [address] [place] [address] Jan, Flora Spencer Systemic lupus erythematosus with other organ involvement, unspecified SLE type M32.19 ; Iron deficiency E61.1 ; Trochanteric bursitis, unspecified laterality M70.60 ; FDC systemic steroid 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 Z79.52 ; 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 ; Myalgia M79.10 ; Lipoedema R60.9 ; Generalized osteoarthritis M15.9 and High risk medication use Z79.899 IMMUNIZATIONS No Information SOCIAL HISTORY Tobacco Use: [...] REASON FOR REFERRAL No Information VITAL SIGNS Weight 413.2 lbs Jan, Weight-kg 187.43 kg Jan, Height 68 in Jan, BMI 62.82 kg/m2 Jan, Heart Rate 95 /min Jan, Respiratory Rate 18 /min Jan, Temperature 97.6 degrees Fahrenheit Jan, Oximetry 95 Jan, Blood pressure systolic 134 mm Hg Jan, Blood pressure diastolic 82 mm Hg Jan, MEDICATIONS Medication SIG (Take, Route, Frequency, Duration) Notes Start Da te End Date Status Zinc 50 MG 1 tablet Orally Once a day for 30 day(s) Jan Active Tylenol Extra Strength 500 MG 2 tablets as needed Oral ly every 8 hours as needed Active Benadryl 25 MG 2 tablets Orally as needed for sleep Active Nystatin 988533 UNIT/GM as directed External Daily Active Ferrous Sulfate 325 (65 Fe) MG 2 tablet Orally once a day Active Pramipexole Dihydrochloride 0.125 MG 1 tablet Oral Once a day, u p to 2 daily Active Multi For Her - 1 Tablet Orally once daily Active Warfarin Sodium 3 MG 1 tablet Monday through , and 4 mg on Monday Oral Active Vitamin D 1000 units 1 tablet Orally daily for 30 day(s) Active predniSONE 10 MG 1/2 to 1 tablet Oral Daily Active Docusate Sodium 50 MG 2 capsules as needed Orally Once a day Active Oxygen 2L 2 litres nasal cannula qHS for 8-10h during slee p for 30 day(s) Nov, Active Plaquenil 200 MG as directed Orally twice daily for 30 days Oct, Active Calcium + D 600-200 MG-UNIT 1200 MG Orally Once a day Active PROCEDURES No Information RESULTS No Results REASON FOR VISIT C/o bilateral hand, knees pain. Patient states that she has hit her left foot on a table at her home. Now she has bruising on the left foot. Patient states that she does not have any foot pain at this time. MEDICAL (GENERAL) HISTORY Type Description Date Medical History Protein C & S deficency Medical History Morbid Obestiy Medical History Hypertension Medical History Lipedema Medical History Multi-vitamin deficency Medical History Chronic anti-coagulation Medical History PE x 2 Medical History DVT hx Medical History Depression Medical History Anxiety Medical History Intertrigo Medical History Unconfirmed sleep apnea Medical History Anemia Medical History Arthritis Surgical History [place] Filter 1997 Surgical History Tonsils and adenoids 1975 Surgical History Gastric bypass 06/02/2010 Surgical History Cholecystectomy 2013 Surgical History Right carpal tunnel release 2019 Hospitalization History Surgery related Goals Section No Information Health Concerns No Information MEDICAL EQUIPMENT No Information MENTAL STATUS No Information FUNCTIONAL STATUS No Information ASSESSMENTS Encounter Date Diagnosis Assessment Notes Treatment Notes Treatm ent Clinical Notes Jan, Systemic lupus erythematosus with other organ involvement, unspecified SLE type (ICD-10 - M32.19) The clinical presentation is consistent with systemic lupus erythematosus (positive PHILIPP (1:640), inflammatory arthritis, positive Cardiolipin ab IgG & IgM, positive Jhdv-7-xeclytcgxdqvatc IgM (>150), Raynaud's phenomenon, history of positive dsDNA), slowly improving. - Continue Plaquenil 200 mg twice daily; will monitor the tolerable side effect of itching closely. The patient declines decreasing the Plaquenil to 200 mg daily. - Will decrease Prednisone 8.5 mg to 8 mg daily. Will monitor the taper closely. - Continue lifestyle modifications (adequate sleep hygiene, well balanced diet/nutrition, physical activity and exercise, good mental health, emotional stability, stress management, adequate sun protection). - Will monitor the disease activity w/ BMP, LFT, complement (C3, C4, CH50), dsDNA, CBC w/ diff, urine studies, and inflammatory markers (ESR, CRP). - She was agreeable and expressed understanding of the plan. All questions and concerns were addressed. Jan, Iron deficiency (ICD-10 - E61.1) 08/20/2020 Iron 38 ug/dL (50-170) - continue 65 mg twice daily, given the iron deficiency. Will monitor the iron level closely. Jan, Trochanteric bursitis, unspecified laterality (I CD-10 - M70.60) Clinical presentation consistent w/ trochanteric bursitis of the bilateral hips. Continue the trochanteric bursitis exercises (3x/week for approximately 10 minutes). 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 Will monitor closely for custodial adverse side effects of prednisone including osteoporosis, diabetes mellitus, weight gain, puffiness, hypertension, mood changes. Strongly encouraged the patient to monitor her sugar intake and be mindful of the adverse side effects of prednisone. Jan, Magnesium disorder (ICD-10 - E83.40) Jan, Myalgia (ICD-10 - M79.10) Improvement in the myalgias w/ treatment of the systemic lupus erythematosus; will conitnue to follow along. Jan, Lipoedema (ICD-10 - R60.9) Lower extremity edema appears consistent w/ lipedema; will monitor the symptomatology Jan, Generalized osteoarthritis (ICD-10 - M15.9) Symptomatic osteoarthritis is present in multiple joints. Recommend participation in a consistent exercise regimen and weight management for pain relief associated with osteoarthritis. Jan, High risk medication use (ICD-10 - Z79.899) Jan, Other Please remember to optimize sleep hygiene and to develop a moisturizing routine for the skin. PLAN OF TREATMENT Treatment Notes Assessment Notes Clinical Notes Systemic lupus erythematosus with other organ involvem ent, unspecified SLE type The clinical presentation is consistent with systemic lupus erythematosus (positive PHILIPP (1:640), inflammatory arthritis, positive Cardiolipin ab IgG & IgM, positive Uzar-9-aqpmigvbrcycynt IgM (>150), Raynaud's phenomenon, history of positive dsDNA), slowly improving.- Continue Plaquenil 200 mg twice daily; will monitor the tolerable side effect of itching closely. The patient declines decreasing the Plaquenil to 200 mg daily.- Will decrease Prednisone 8.5 mg to 8 mg daily. Will monitor the taper closely.- Continue lifestyle modifications (adequate sleep hygiene, well balanced diet/nutrition, physical activity and exercise, good mental health, emotional stability, stress management, adequate sun protection).- Will monitor the disease activity w/ BMP, LFT, complement (C3, C4, CH50), dsDNA, CBC w/ diff, urine studies, and inflammatory markers (ESR, CRP).- She was agreeable and expressed understanding of the plan. All questions and concerns were addressed. Iron deficiency 08/20/2020 Iron 38 ug/ dL (50-170) - continue 65 mg twice daily, given the iron deficiency. Will monitor the iron level closely. Trochanteric bursitis, unspecified laterality Clinical presentation consistent w/ trochanteric bursitis of the bilateral hips. Continue the trochanteric bursitis exercises (3x/week for approximately 10 minutes). 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 Will monitor closely for custodial adverse side effects of prednisone including osteoporosis, diabetes mellitus, weight gain, puffiness, hypertension, mood changes. Strongly encouraged the patient to monitor her sugar intake and be mindful of the adverse side effects of prednisone. Myalgia Improvement in the m yalgias w/ treatment of the systemic lupus erythematosus; will conitnue to follow along. Lipoedema Lower extremity sarah a appears consistent w/ lipedema; will monitor the symptomatology Generalized osteoarthritis Symptomatic o steoarthritis is present in multiple joints. Recommend participation in a consistent exercise regimen and weight management for pain relief associated with osteoarthritis. Treatment Notes Test Name Order Date ERYTHROCYTE SEDIMENTATION RATE 2021-02-04 CBC with Differential 2021-02-04 LIVER PROFILE 2021-02-04 Basic Metabolic Profile (BMP) 2021-02-04 C REACTIVE PROTEIN QUANTITATIV (At [facility]) 2021-02-04 ANTI DOUBLE STRAND DNA DENIA 2021-02-04 TOTAL PROTEIN,RANDOM URINE 2021-02-04 COMPLEMENT C4 2021-02-04 COMPLEMENT TOTAL (CH50) 2021-02-04 UA URINALYSIS 2021-02-04 COMPLEMENT C3 2021-02-04 CREATININE,RANDOM URINE 2021-02-04 IRON (FE) 2021-02-04 MAGNESIUM LEVEL 2021-02-04 Next Appt Details Provider Name:Flora Spencer, 2021-06-07 11:45:00 AM, [address] [place] [address], [place], [place], [facility], Insurance Providers Payer Name Payer Address Payer Phone Insured Name Patient Relati onship to Insured Coverage Start Date Coverage End Date MEDICARE Part A and B [address] [facility] [phone] BRIAN CR [facility] [address] [facility] [id number] BRIAN CR [id number]
--- OUTSIDE RECORDS SUMMARY | 2021-04-17 12:15 | CCD ---
Author Author [facility] Organization [facility] Address Unknown Phone Unavailable Support Name Relationship Address Phone ROSE WHITE Next Of Kin [address] [address] [place], [place] [phone] DISABLED Next Of Kin Unknown Unavailable SHER Next Of Kin UN UN, UN UN ALISSA PEREZ Next Of Kin [address] [place] [address] Alissa Perez [facility] [address] [place] [phone] Re-disclosure Warning The records that you are about to access may contain information from federally-assisted alcohol or drug abuse programs. If such information is present, then the following federally mandated warning applies: This information has been disclosed to you from records protected by federal confidentiality rules (42 CFR part 2). The federal rules prohibit you from making any further disclosure of this information unless further disclosure is expressly permitted by the written consent of the person to whom it pertains or as otherwise permitted by 42 CFR part 2. A general authorization for the release of medical or other information is NOT sufficient for this purpose. The Federal rules restrict any use of the information to criminally investigate or prosecute any alcohol or drug abuse patient.The records that you are about to access may contain highly sensitive health information, the redisclosure of which is protected by Article 27-F of the [facility] Public Health law. If you continue you may have access to information: Regarding HIV / AIDS; Provided by facilities licensed or operated by the [facility] Office of Mental Health; or Provided by the [facility] Office for People With Developmental Disabilities. If such information is present, then the following [facility] mandated warning applies: This information has been disclosed to you from confidential records which are protected by state law. State law prohibits you from making any further disclosure of this information without the specific written consent of the person to whom it pertains, or as otherwise permitted by law. Any unauthorized further disclosure in violation of state law may result in a fine or custodial sentence or both. A general authorization for the release of medical or other information is NOT sufficient authorization for further disc losure. Family History Family Member Name Family Member Gender Family Member Status Date o f Status Description Data Source(s) Unknown Female Problem MEDENT ([facility]) Unknown Unknown Problem MEDENT ([facility]) Encounters Encounter Providers Location Date Indications Data Source(s ) [place] [address] [facility] [place] [address] 03/03/2021 12:00:00 AM EDT eCW1 ([facility]) Outpatient [address] [place] [address] 02/04/2021 12:00:00 AM EDT eCW1 ([facility]) Unknown [address] [place] [address] 11/03/2020 12:00:00 AM EDT eCW1 ([facility]) TeleMedicine Phone E/M by Lance 21-[address] [place] [address] 11/03/2020 12:00:00 AM EDT eCW1 ([facility]) [place] [address] [facility] [facility] [address] 11/02/2020 12:00:00 AM EDT eCW1 ([facility]) [place] [address] [facility] [address] 10/30/2020 12:00:00 AM EDT eCW1 ([facility]) [place] [address] [facility] [place] [address] 10/12/2020 12:00:00 AM EDT eCW1 ([facility]) Outpatient [address] [place] [address] 09/25/2020 12:00:00 AM EDT eCW1 ([facility]) Unknown [address] [place] [address] 08/29/2020 12:00:00 AM EDT eCW1 ([facility]) [place]patient [address] [facility] [facility] [place] [address] 08/20/2020 12:00:00 AM EDT eCW1 ([facility]) Medications Medication Brand Name Start Date Product Form Dose Route Admi nistrative Instructions Pharmacy Instructions Status Indications Reaction Description Data Source(s) Hydroxychloroquine Sulfate 200 MG Oral Tablet HYDROXYCHLOROQ UINE SULFATE 03/04/2021 12:00:00 AM EDT tablet 180 TAKE ONE TABLET BY MOUTH TWICE A DAY WITH FOOD TAKE ONE TABLET BY MOUTH TWICE A DAY WITH FOOD SOLD: 03/07/2021 [facility] Zinc 50 MG Zinc 50 MG 02/04/2021 12:00:00 AM EDT 1.0 {tablet} active Zinc 50 MG eCW1 ([facility]) Zinc 50 MG Zinc 50 MG 02/04/2021 12:00:00 AM EDT 1.0 {tablet} active Zinc 50 MG eCW1 ([facility]) 2 mg 12/25/2020 12:00:00 AM EDT tablet 90 TAKE ONE TABLET BY MOUTH EVERY DAY TAKE ONE TABLET BY MOUTH EVERY DAY SOLD: 12/30/2020 [facility] Amoxicillin 875 MG / Clavulanate 125 MG Oral Tablet 87 5-125 mg AMOXICILLIN/POTASSIUM CLAV 12/24/2020 12:00:00 AM EDT tablet 14 TAKE ONE TABLET BY MOUTH EVERY 12 HOURS FOR 7 DAYS TAKE ONE TABLET BY MOUTH EVERY 12 HOURS FOR 7 DAYS SOLD: 12/25/2020 [facility] 100,000 unit/gram 12/24/2020 12:00:00 AM EDT ointment 90 USE 1 APPLICATION APPLY TO AFFECTED AREA(S) EXTERNALLY TWO TIMES A DAY USE 1 APPLICATION APPLY TO AFFECTED AREA(S) EXTERNALLY TWO TIMES A DAY SOLD: 12/30/2020 [facility] 3 mg 12/24/2020 12:00:00 AM EDT tablet 85 TAKE ONE TABLET BY MOUTH EVERY DAY TAKE ONE TABLET BY MOUTH EVERY DAY SOLD: 12/30/2020 [facility] Hydroxychloroquine Sulfate 200 MG Oral Tablet HYDROXYCHLOROQ UINE SULFATE 11/04/2020 12:00:00 AM EDT tablet 60 TAKE ONE TABLET BY MOUTH TWICE A DAY WITH FOOD DIRECTED TAKE ONE TABLET BY MOUTH TWICE A DAY WITH FOOD DIRE CTED SOLD: 01/07/2021 [facility] Hydroxychloroquine Sulfate 200 MG Oral Tablet HYDROXYCHLOROQ UINE SULFATE 11/04/2020 12:00:00 AM EDT tablet 60 TAKE ONE TABLET BY MOUTH TWICE A DAY WITH FOOD DIRECTED TAKE ONE TABLET BY MOUTH TWICE A DAY WITH FOOD DIRE CTED SOLD: 12/10/2020 [facility] Hydroxychloroquine Sulfate 200 MG Oral Tablet HYDROXYCHLOROQ UINE SULFATE 11/04/2020 12:00:00 AM EDT tablet 60 TAKE ONE TABLET BY MOUTH TWICE A DAY WITH FOOD DIRECTED TAKE ONE TABLET BY MOUTH TWICE A DAY WITH FOOD DIRE CTED SOLD: 11/04/2020 [facility] Hydroxychloroquine Sulfate 200 MG Oral Tablet HYDROXYCHLOROQ UINE SULFATE 11/04/2020 12:00:00 AM EDT tablet 60 TAKE ONE TABLET BY MOUTH TWICE A DAY WITH FOOD DIRECTED TAKE ONE TABLET BY MOUTH TWICE A DAY WITH FOOD DIRE CTED SOLD: 02/08/2021 [facility] Hydroxychloroquine Sulfate 200 MG Oral Tablet [Plaquen il] Plaquenil 200 MG Plaquenil 200 MG 11/03/2020 12:00:00 AM EDT a ctive Plaquenil 200 MG eCW1 ([facility]) Hydroxychloroquine Sulfate 200 MG Oral Tablet [Plaquen il] Plaquenil 200 MG Plaquenil 200 MG 11/03/2020 12:00:00 AM EDT a ctive Plaquenil 200 MG eCW1 ([facility]) Hydroxychloroquine Sulfate 200 MG Oral Tablet [Plaquen il] Plaquenil 200 MG Plaquenil 200 MG 11/03/2020 12:00:00 AM EDT a ctive Plaquenil 200 MG eCW1 ([facility]) Hydroxychloroquine Sulfate 200 MG Oral Tablet [Plaquen il] Plaquenil 200 MG Plaquenil 200 MG 11/03/2020 12:00:00 AM EDT a ctive Plaquenil 200 MG eCW1 ([facility]) Hydroxychloroquine Sulfate 200 MG Oral Tablet [Plaquen il] Plaquenil 200 MG Plaquenil 200 MG 11/03/2020 12:00:00 AM EDT a ctive Plaquenil 200 MG eCW1 ([facility]) 10 mg 09/15/2020 12:00:00 AM EDT tablet 90 TAKE ONE TABLET BY MOUTH EVERY DAY TAKE ONE TABLET BY MOUTH EVERY DAY SOLD: 09/22/2020 [facility] 10 mg 09/15/2020 12:00:00 AM EDT tablet 90 TAKE ONE TABLET BY MOUTH EVERY DAY TAKE ONE TABLET BY MOUTH EVERY DAY SOLD: 03/07/2021 [facility] 1 mg 09/15/2020 12:00:00 AM EDT tablet 360 TAKE 4 TABLETS BY MOUTH EVERY EVENING ALSO TAKING 5MG IN THE MORNING TAKE 4 TABLETS BY MOUTH EVERY EVENING ALSO TAKING 5MG IN THE MORNING SOLD: 12/30/2020 [facility] 2 mg 09/15/2020 12:00:00 AM EDT tablet 90 TAKE ONE TABLET BY MOUTH EVERY DAY TAKE ONE TABLET BY MOUTH EVERY DAY SOLD: 09/22/2020 [facility] 1 mg 09/15/2020 12:00:00 AM EDT tablet 360 TAKE 4 TABLETS BY MOUTH EVERY EVENING ALSO TAKING 5MG IN THE MORNING TAKE 4 TABLETS BY MOUTH EVERY EVENING ALSO TAKING 5MG IN THE MORNING SOLD: 09/22/2020 [facility] 0.25 mg 07/24/2020 12:00:00 AM EST tablet 180 TAKE 1-2 TABLETS BY MOUTH BEFORE BEDTIME DAILY TAKE 1-2 TABLETS BY MOUTH BEFORE BEDTIME DAILY SOLD: 11/22/2020 [facility] 0.25 mg 07/24/2020 12:00:00 AM EST tablet 180 TAKE 1-2 TABLETS BY MOUTH BEFORE BEDTIME DAILY TAKE 1-2 TABLETS BY MOUTH BEFORE BEDTIME DAILY SOLD: 07/28/2020 [facility] 3 mg 04/21/2020 12:00:00 AM EST tablet 90 TAKE ONE TABLET BY MOUTH EVERY DAY TAKE ONE TABLET BY MOUTH EVERY DAY SOLD: 09/22/2020 [facility] 100,000 unit/gram 04/21/2020 12:00:00 AM EST ointment 120 APPLY TO AFFECTED AREA(S) TWO TIMES A DAY APPLY TO AFFECTED AREA(S) TWO TIMES A DAY SOLD: 04/27/2020 [facility] 3 mg 04/21/2020 12:00:00 AM EST tablet 90 TAKE ONE TABLET BY MOUTH EVERY DAY TAKE ONE TABLET BY MOUTH EVERY DAY SOLD: 04/27/2020 [facility] 2 mg 12/10/2019 12:00:00 AM EDT tablet 90 TAKE ONE TABLET BY MOUTH EVERY DAY TAKE ONE TABLET BY MOUTH EVERY DAY SOLD: 03/06/2020 [facility] 1 mg 11/06/2019 12:00:00 AM EDT tablet 120 TAKE 4 TABLETS BY MOUTH EVERY EVENING TAKE 4 TABLETS BY MOUTH EVERY EVENING SOLD: 04/27/2020 [facility] 1 mg 11/06/2019 12:00:00 AM EDT tablet 120 TAKE 4 TABLETS BY MOUTH EVERY EVENING TAKE 4 TABLETS BY MOUTH EVERY EVENING SOLD: 08/26/2020 [facility] 1 mg 11/06/2019 12:00:00 AM EDT tablet 120 TAKE 4 TABLETS BY MOUTH EVERY EVENING TAKE 4 TABLETS BY MOUTH EVERY EVENING SOLD: 05/25/2020 [facility] 1 mg 11/06/2019 12:00:00 AM EDT tablet 120 TAKE 4 TABLETS BY MOUTH EVERY EVENING TAKE 4 TABLETS BY MOUTH EVERY EVENING SOLD: 07/10/2020 [facility] 10 mg 10/18/2019 12:00:00 AM EDT tablet 90 TAKE ONE TABLET BY MOUTH EVERY DAY TAKE ONE TABLET BY MOUTH EVERY DAY SOLD: 03/06/2020 [facility] 0.25 mg 10/18/2019 12:00:00 AM EDT tablet 180 TAKE ONE TO TWO TABLETS BY MOUTH AT BEDTIME TAKE ONE TO TWO TABLETS BY MOUTH AT BEDTIME SOLD: 03/06/2020 [facility] Insurance Providers Payer name Policy type / Coverage type Policy ID Covered libertarian ID Covered libertarian's relationship to rhodes Policy Rhodes Plan Information MEDICARE A [id number] Self [id number] A EMPIR PLAN [facility] U [id number] Spouse [id number] BLUE CARD C [id number] Spouse [id number] [facility] [id number] 2 [id number] [facility] [id number] [facility] [id number] MEDICARE [id number] A ANSI-Medicare Part B [id number] ANSI-Commercial [id number] [place] Med[place] Part B [id number] Self [id number] [facility] Health Maintenance Organization (O) [id number] Family Dependent [id number] Medicare Part B Medicare Primary [id number] Self [id number] [facility] Commercial [id number] Family Dependent [id number] [facility] [id number] Self [id number] [facility] Commercial [id number] Family Dependent [id number] MEDICARE S [id number] S [id number] A [facility] P [id number] S [id number] MEDICARE PART A-RECURRING [id number] 18 [id number] MEDICARE [id number] SP [id number] MANAGED PHYSICAL NETWORK -[id number] 01 [id number] [facility] [id number] [facility] [id number] [facility] [id number] Problems, Conditions, and Diagnoses Code Display Name Description Problem Type Effective Dates Data Source(s) 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 Problem 02/04/2021 12:00: 00 AM EDT eCW1 ([facility]) D68.61 [id number] Antiphospholipid antibody syndrome Proble m 09/25/2020 12:00:00 AM EDT eCW1 ([facility]) 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.19 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, unspecified SLE type Problem 09/25/2020 12:00:00 AM EDT eCW1 ([facility]) M15.9 [id number] Generalized osteoarthritis Problem 12:00:00 AM EDT eCW1 ([facility]) Z79.52 [id number] 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 Prob jose 08/20/2020 12:00:00 AM EDT eCW1 ([facility]) M06.4 [id number] Undifferentiated inflammatory arthritis P roblem 08/20/2020 12:00:00 AM EDT eCW1 ([facility]) Surgeries/Procedures No Information Results ID Date Data Source Anti-U1 DIRECT MARKETING ANALYST AB 08/20/2020 12:00:00 AM EDT eCW1 ([facility]) Name Value Range Interpretation Code Description Data Flor rce(s) Supporting Document(s) <20 <20 ANTI-U1 DIRECT MARKETING ANALYST AB eCW1 ([facility]) ID Date Data Source Anti Hamm(Sm) AB 08/20/2020 12:00:00 AM EDT eCW1 ([facility]) Name Value Range Interpretation Code Description Data Flor rce(s) Supporting Document(s) <20 <20 ANTI HAMM(Sm) AB eCW1 ([facility]) ID Date Data Source ANTI-SJOGRENS A&B ANTIBODIES 08/20/2020 12:00:00 AM EDT eCW1 ([facility]) Name Value Range Interpretation Code Description Data Flor rce(s) Supporting Document(s) <0.2 0.0-0.9 SSB SJOGRENS B eCW1 ([facility]) <0.2 0.0-0.9 SSA SJOGRENS A eCW1 ([facility]) ID Date Data Source PHILIPP TITER & PATTERN 08/20/2020 12:00:00 AM EDT eCW1 ([facility]) Name Value Range Interpretation Code Description Data Flor rce(s) Supporting Document(s) Positive . PHILIPP (HEP2) eCW1 ([facility]) ID Date Data Source ANTI SCLERODERMA ANTIBODIES 08/20/2020 12:00:00 AM EDT eCW1 ([facility]) Name Value Range Interpretation Code Description Data Flor rce(s) Supporting Document(s) <0.2 0.0-0.9 ANTI SCLERODERMA ANTIBODI ES eCW1 ([facility]) ID Date Data Source CYCLIC CITRULLINATED PEPTIDE 08/20/2020 12:00:00 AM EDT eCW1 ([facility]) Name Value Range Interpretation Code Description Data Flor rce(s) Supporting Document(s) 6 0-19 CYCLIC CITRULLINATED PEPTIDE e CW1 ([facility]) ID Date Data Source ANTI DOUBLE STRAND DNA DENIA 08/20/2020 12:00:00 AM EDT eCW1 ( [facility]) Name Value Range Interpretation Code Description Data Flor rce(s) Supporting Document(s) ANTI DOUBLE STRAND DNA DENIA eCW 1 ([facility]) ID Date Data Source LUPUS TYPE ANTICOAGULANT SCREE 08/20/2020 12:00:00 AM EDT eC W1 ([facility]) Name Value Range Interpretation Code Description Data Flor rce(s) Supporting Document(s) 2.6 0-1.2 PTT LUPUS TYPE ANTICOAG S CREEN eCW1 ([facility]) ID Date Data Source ANTI-HISTONE ANTIBODIES 08/20/2020 12:00:00 AM EDT eCW1 ([facility]) Name Value Range Interpretation Code Description Data Flor rce(s) Supporting Document(s) 0.3 0.0-0.9 ANTI-HISTONE ANTIBODIES eCW1 ( [facility]) ID Date Data Source ANTI-CARDIOLIPIN ANTIBODIES 08/20/2020 12:00:00 AM EDT eCW1 ([facility]) Name Value Range Interpretation Code Description Data Flor rce(s) Supporting Document(s) <9 0-11 CARDIOLIPIN IGA ANTIBODY eCW1 ([facility]) 27 0-14 CARDIOLIPIN IGG ANTIBODY eCW1 ([facility]) 118 0-12 CARDIOLIPIN IGM ANTIBODY eCW1 ([facility]) ID Date Data Source ANTI CENTROMERE ANTIBODY 08/20/2020 12:00:00 AM EDT eCW1 ([facility]) Name Value Range Interpretation Code Description Data Flor rce(s) Supporting Document(s) <0.2 0.0-0.9 ANTI CENTROMERE ANTIBODY eCW1 ([facility]) ID Date Data Source COMPLEMENT TOTAL (CH50) 08/20/2020 12:00:00 AM EDT eCW1 ([facility]) Name Value Range Interpretation Code Description Data Flor rce(s) Supporting Document(s) > 60 >41 COMPLEMENT TOTAL (CH50) eCW1 ( [facility]) ID Date Data Source BETA-2 GLYCOPROTEIN 1 DENIA KATEY 08/20/2020 12:00:00 AM EDT eCW 1 ([facility]) Name Value Range Interpretation Code Description Data Flor rce(s) Supporting Document(s) 20 0-20 BETA-2 GLYCOPROTEIN I DENIA IGG eCW1 ([facility]) >150 0-32 BETA-2 GLYCOPROTEIN I DENIA IGM eCW1 ([facility]) <9 0-25 BETA-2 GLYCOPROTEIN I DENIA IGA eCW1 ([facility]) ID Date Data Source VITAMIN B12 LEVEL 08/20/2020 12:00:00 AM EDT eCW1 ([facility]) Name Value Range Interpretation Code Description Data Flor rce(s) Supporting Document(s) 904 310-188 VITAMIN B12 LEVEL eCW1 ([facility]) ID Date Data Source MAGNESIUM LEVEL 08/20/2020 12:00:00 AM EDT eCW1 ([facility]) Name Value Range Interpretation Code Description Data Flor rce(s) Supporting Document(s) 2.6 1.8-2.4 MAGNESIUM LEVEL eCW1 ([facility]) ID Date Data Source VITAMIN D 25-HYDROXY 08/20/2020 12:00:00 AM EDT eCW1 ([facility]) Name Value Range Interpretation Code Description Data Flor rce(s) Supporting Document(s) 36.8 30.0-100.0 TOTAL 25(OH) VITAMIN D eC W1 ([facility]) ID Date Data Source PHOSPHOROUS LEVEL 08/20/2020 12:00:00 AM EDT eCW1 ([facility]) Name Value Range Interpretation Code Description Data Flor rce(s) Supporting Document(s) 3.8 2.5-4.9 PHOSPHORUS LEVEL eCW1 ([facility]) ID Date Data Source SERUM PROTEIN ELECTROPHORESIS (SPEP) 08/20/2020 12:00:00 AM EDT eCW1 ([facility]) Name Value Range Interpretation Code Description Data Flor rce(s) Supporting Document(s) 53.6 55.8-66.1 ALBUMIN % eCW1 ([facility]) 5.7 2.9-4.9 BTFHP-8-PARNNFLD % eCW1 ([facility]) 6.5 3.2-6.5 GAGX-8-CNQXDASEF % eCW1 ([facility]) 15.4 7.1-11.8 EJGCL-3-QHKJXBRPL % eCW1 ([facility]) 7.0 4.7-7.2 GNLM-3-FSXTRBEKP % eCW1 ([facility]) 4.07 3.29-5.55 ALBUMIN eCW1 ([facility]) 11.8 11.1-18.8 GAMMA GLOBULIN % eCW1 ([facility]) 0.43 0.17-0.41 IYCKL-8-ENSACVCUX eCW1 ([facility]) 0.53 0.28-0.60 IDKM-9-AZLVQXUEG eCW1 ([facility]) 0.49 0.19-0.55 OWFJ-1-IXQCQRYHX eCW1 ([facility]) 1.17 0.42-0.99 RFQKL-3-YQNSYJYLD eCW1 ([facility]) SEE COMMENT SPEP INTERPRETATION eCW1 ([facility]) 7.6 6.4-8.2 TOTAL PROTEIN eCW1 ([facility]) 0.90 0.65-1.58 GAMMA GLOBULINS eCW1 ([facility]) ID Date Data Source CREATININE,RANDOM URINE 08/20/2020 12:00:00 AM EDT eCW1 ([facility]) Name Value Range Interpretation Code Description Data Flor rce(s) Supporting Document(s) 124.0 CREATININE,RANDOM URINE eCW1 ( [facility]) ID Date Data Source UA URINALYSIS 08/20/2020 12:00:00 AM EDT eCW1 ([facility]) Name Value Range Interpretation Code Description Data Flor rce(s) Supporting Document(s) UA URINALYSIS eCW1 ([facility]) ID Date Data Source TOTAL PROTEIN,RANDOM URINE 08/20/2020 12:00:00 AM EDT eCW1 ( [facility]) Name Value Range Interpretation Code Description Data Flor rce(s) Supporting Document(s) 17.2 0.0-12.0 TOTAL PROTEIN,RANDOM URIN E eCW1 ([facility]) ID Date Data Source RHEUMATOID FACTOR QUANT 08/20/2020 12:00:00 AM EDT eCW1 ([facility]) Name Value Range Interpretation Code Description Data Flor rce(s) Supporting Document(s) 11.5 <15.0 RHEUMATOID FACTOR QUANT eCW1 ( [facility]) ID Date Data Source IRON (FE) 08/20/2020 12:00:00 AM EDT eCW1 ([facility]) Name Value Range Interpretation Code Description Data Flor rce(s) Supporting Document(s) 38 50-170 IRON (FE) eCW1 ([facility]) ID Date Data Source CPK CREATINE PHOSPHOKINASE 08/20/2020 12:00:00 AM EDT eCW1 ( [facility]) Name Value Range Interpretation Code Description Data Flor rce(s) Supporting Document(s) 56 26-192 CPK CREATINE PHOSPHOKINASE eCW 1 ([facility]) ID Date Data Source LIVER PROFILE 08/20/2020 12:00:00 AM EDT eCW1 ([facility]) Name Value Range Interpretation Code Description Data Flor rce(s) Supporting Document(s) 20 12-78 ALT/SGPT eCW1 ([facility]) 15 7-37 AST/SGOT eCW1 ([facility]) 0.1 0.0-0.2 BILIRUBIN,DIRECT eCW1 ([facility]) 191 45-117 ALKALINE PHOSPHATASE eCW1 ([facility]) 0.3 0.2-1.0 BILIRUBIN,TOTAL eCW1 ([facility]) 4.0 3.2-5.2 ALBUMIN eCW1 ([facility]) 1.1 1.2-2.2 ALBUMIN/GLOBULIN RATIO eCW1 ([facility]) 7.6 6.4-8.2 TOTAL PROTEIN eCW1 ([facility]) ID Date Data Source ERYTHROCYTE SEDIMENTATION RATE 08/20/2020 12:00:00 AM EDT eC W1 ([facility]) Name Value Range Interpretation Code Description Data Flor rce(s) Supporting Document(s) 27 0-30 ERYTHROCYTE SEDIMENTATION RATE eCW1 ([facility]) ID Date Data Source Basic Metabolic Profile (BMP) 08/20/2020 12:00:00 AM EDT eCW 1 ([facility]) Name Value Range Interpretation Code Description Data Flor rce(s) Supporting Document(s) 15 7-18 BLOOD UREA NITROGEN eCW1 ([facility]) 121 70-100 GLUCOSE, FASTING eCW1 ([facility]) 0.83 0.55-1.30 CREATININE FOR GFR eCW1 ([facility]) 140 136-145 SODIUM LEVEL eCW1 ([facility]) > 60.0 >51 GLOMERULAR FILTRATION RATE eCW 1 ([facility]) 26 21-32 CARBON DIOXIDE LEVEL eCW1 ([facility]) 4.3 3.5-5.1 POTASSIUM SERUM eCW1 ([facility]) 106 98-107 CHLORIDE LEVEL eCW1 ([facility]) 10.0 8.5-10.1 CALCIUM LEVEL eCW1 ([facility]) ID Date Data Source C REACTIVE PROTEIN QUANTITATIV (At [facility]) 08/20/2020 12:00 :00 AM EDT eCW1 ([facility]) Name Value Range Interpretation Code Description Data Flor rce(s) Supporting Document(s) 2.11 0.00-0.30 C REACTIVE PROTEIN QUANTI TATIV eCW1 ([facility]) ID Date Data Source CBC with Differential 08/20/2020 12:00:00 AM EDT eCW1 ([facility]) Name Value Range Interpretation Code Description Data Flor rce(s) Supporting Document(s) 13.1 4.0-10.0 WHITE BLOOD COUNT eCW1 ([facility]) 5.43 4.00-5.40 RED BLOOD COUNT eCW1 ([facility]) 14.9 12.0-15.5 HEMOGLOBIN eCW1 ([facility]) 47.4 36.0-47.0 HEMATOCRIT eCW1 ([facility]) 87.3 80.0-96.0 MEAN CORPUSCULAR VOLUME e CW1 ([facility]) 27.4 27.0-33.0 MEAN CORPUSCULAR HEMOGLOB IN eCW1 ([facility]) 31.4 32.0-36.5 MEAN CORPUSCULAR HGB CONC eCW1 ([facility]) 322 150-450 PLATELET COUNT, AUTOMATED eCW1 ([facility]) 69.4 36.0-66.0 NEUTROPHILS % eCW1 ([facility]) 14.3 11.5-14.5 RED CELL DISTRIBUTION WID TH eCW1 ([facility]) 4.9 2.0-8.0 MONO % eCW1 ([facility]) 23.5 24.0-44.0 LYMPH % eCW1 ([facility]) 1.5 0.0-3.0 EOS % eCW1 ([facility]) 9.1 1.5-8.5 NEUTROPHILS # eCW1 ([facility]) 0.4 0.0-1.0 BASO % eCW1 ([facility]) 0.2 0.0-0.5 EOS # eCW1 ([facility]) 0.6 0.0-0.8 MONO # eCW1 ([facility]) 3.1 1.5-5.0 LYMPH # eCW1 ([facility]) 0.1 0.0-0.2 BASO # eCW1 ([facility]) ID Date Data Source COMPLEMENT C4 08/20/2020 12:00:00 AM EDT eCW1 ([facility]) Name Value Range Interpretation Code Description Data Flor rce(s) Supporting Document(s) 22 10-40 COMPLEMENT C4 eCW1 ([facility]) ID Date Data Source COMPLEMENT C3 08/20/2020 12:00:00 AM EDT eCW1 ([facility]) Name Value Range Interpretation Code Description Data Flor rce(s) Supporting Document(s) 161 90-180 COMPLEMENT C3 eCW1 ([facility]) Procedure Social History Code Duration Value Status Description Data Source(s ) Smoking 02/04/2021 12:00:00 AM EDT Current Smoker completed Curre nt Smoker eCW1 ([facility]) Smoking 02/04/2021 12:00:00 AM EDT Current Smoker completed Curre nt Smoker eCW1 ([facility]) Smoking 11/03/2020 12:00:00 AM EDT Current Smoker completed Curre nt Smoker eCW1 ([facility]) Smoking 11/03/2020 12:00:00 AM EDT Current Smoker completed Curre nt Smoker eCW1 ([facility]) Smoking 11/03/2020 12:00:00 AM EDT Current Smoker completed Curre nt Smoker eCW1 ([facility]) Smoking 09/25/2020 12:00:00 AM EDT Current Smoker completed Curre nt Smoker eCW1 ([facility]) Smoking 09/25/2020 12:00:00 AM EDT Current Smoker completed Curre nt Smoker eCW1 ([facility]) Smoking 09/25/2020 12:00:00 AM EDT Current Smoker completed Curre nt Smoker eCW1 ([facility]) Smoking 08/20/2020 12:00:00 AM EDT Current Smoker completed Curre nt Smoker eCW1 ([facility]) Smoking 08/20/2020 12:00:00 AM EDT Current Smoker completed Curre nt Smoker eCW1 ([facility]) Vital Signs ID Date Data Source UNK Name Value Range Interpretation Code Description Data Source(s) Body weight 413.2 [lb_av] 413.2 [lb_av] eCW1 ([facility]) Body weight 187.43 kg 187.43 kg eCW1 ([facility]) Body height 68 [in_i] 68 [in_i] eCW1 ([facility]) Body mass index (BMI) [Ratio] 62.82 kg/m2 62.82 kg/m2 eCW1 ([facility]) Heart rate 95 /min 95 /min eCW1 ([facility]) Respiratory rate 18 /min 18 /min eCW1 ([facility]) Body temperature 97.6 [degF] 97.6 [degF] eCW1 ( [facility]) Systolic blood pressure 134 mm[Hg] 134 mm[Hg] e CW1 ([facility]) Diastolic blood pressure 82 mm[Hg] 82 mm[Hg] eCW1 ([facility]) Body weight 417.4 [lb_av] 417.4 [lb_av] eCW1 ([facility]) Body mass index (BMI) [Ratio] 63.46 kg/m2 63.46 kg/m2 eCW1 ([facility]) Heart rate 93 /min 93 /min eCW1 ([facility]) Respiratory rate 18 /min 18 /min eCW1 ([facility]) Body temperature 97.6 [degF] 97.6 [degF] eCW1 ( [facility]) Systolic blood pressure 132 mm[Hg] 132 mm[Hg] e CW1 ([facility]) Diastolic blood pressure 68 mm[Hg] 68 mm[Hg] eCW1 ([facility]) Body weight 189.3 kg 189.3 kg eCW1 ([facility]) Body height 68 [in_i] 68 [in_i] eCW1 ([facility]) Body weight 418.6 [lb_av] 418.6 [lb_av] eCW1 ([facility]) Body weight 189.8 kg 189.8 kg eCW1 ([facility]) Body height 68 [in_i] 68 [in_i] eCW1 ([facility]) Body mass index (BMI) [Ratio] 63.64 kg/m2 63.64 kg/m2 eCW1 ([facility]) Heart rate 110 /min 110 /min eCW1 ([facility]) Respiratory rate 18 /min 18 /min eCW1 ([facility]) Body temperature 97.6 [degF] 97.6 [degF] eCW1 ( [facility]) Systolic blood pressure 124 mm[Hg] 124 mm[Hg] e CW1 ([facility]) Diastolic blood pressure 76 mm[Hg] 76 mm[Hg] eCW1 ([facility]) Patient Treatment Plan of Care Planned Activity Planned Date Details Description Data Source (s) Hydroxychloroquine Sulfate 200 MG Oral Tablet [[place]] 11/03/2020 12:00:00 AM EDT eCW1 ([facility]) Hydroxychloroquine Sulfate 200 MG Oral Tablet [[place]] 11/03/2020 12:00:00 AM EDT eCW1 ([facility]) Hydroxychloroquine Sulfate 200 MG Oral Tablet [[place]] 11/03/2020 12:00:00 AM EDT eCW1 ([facility]) Hydroxychloroquine Sulfate 200 MG Oral Tablet [[place]] 11/03/2020 12:00:00 AM EDT eCW1 ([facility])
[2021-04-17] MEDS ORDERED: WARF-20 PO (12:20)
--- OUTSIDE RECORDS SUMMARY | 2021-04-17 12:50 | CCD ---
Author Author [facility] Organization [facility] Address Unknown Phone Unavailable Support Name Relationship Address Phone ROSE WHITE Next Of Kin [address] [place], [place] [phone] DISABLED Next Of Kin Unknown Unavailable SHER Next Of Kin UN UN, UN UN ALISSA PEREZ Next Of Kin [address] [place] [address] Alissa Perez [place] [address] [place] [phone] Re-disclosure Warning The records that you are [...] is protected by Article 27-F of the [facility] Public Health law. If you continue you may have access to information: Regarding HIV / AIDS; Provided by facilities licensed or operated by the [facility] Office of Mental Health; or Provided by the [facility] Office for People With Developmental Disabilities. If such information is present, then the following [facility] mandated warning applies: This information has been [...] law may result in a fine or halfway sentence or both. A general authorization for [...] Date Indications Data Source(s ) Unknown [address] [facility] [address] 03/03/2021 12:00:00 AM EDT eCW1 ([facility]) Outpatient [address] [facility] [place] [address] 02/04/2021 12:00:00 AM EDT eCW1 (Critical access hospital) Unknown [address] [facility] [place] [address] 11/03/2020 12:00:00 AM EDT eCW1 (Critical access hospital) TeleMedicine Phone E/M by Lance 21-[address] [place] [phone] 11/03/2020 12:00:00 AM EDT eCW1 ([facility]) Unknown [address] [facility] [address] 11/02/2020 12:00:00 AM EDT eCW1 ([facility]) Unknown [address] [facility] [address] 10/30/2020 12:00:00 AM EDT eCW1 (Critical access hospital) Unknown [address] [facility] [address] 10/12/2020 12:00:00 AM EDT eCW1 ([facility]) Outpatient [address] [facility] [place] [address] 09/25/2020 12:00:00 AM EDT eCW1 (Critical access hospital) Unknown [address] [facility] [place] [address] 08/29/2020 12:00:00 AM EDT eCW1 (Critical access hospital) Outpatient [address] [facility] [address] 08/20/2020 12:00:00 AM EDT eCW1 (Critical access hospital) Medications Medication Brand Name Start Date Product [...] 1.0 {tablet} active Zinc 50 MG eCW1 (Critical access hospital) Zinc 50 MG Zinc 50 MG 02/04/2021 12:00:00 AM EDT 1.0 {tablet} active Zinc 50 MG eCW1 (Critical access hospital) 2 mg 12/25/2020 12:00:00 AM EDT tablet [...] EDT a ctive Plaquenil 200 MG eCW1 ([facility]) Hydroxychloroquine Sulfate 200 MG Oral Tablet [Plaquen il] Plaquenil 200 MG Plaquenil 200 MG 11/03/2020 12:00:00 AM EDT a ctive Plaquenil 200 MG eCW1 ([facility]) Hydroxychloroquine Sulfate 200 MG Oral Tablet [Plaquen il] Plaquenil 200 MG Plaquenil 200 MG 11/03/2020 12:00:00 AM EDT a ctive Plaquenil 200 MG eCW1 ([facility]) Hydroxychloroquine Sulfate 200 MG Oral Tablet [[place]] Plaquenil 200 MG Plaquenil 200 MG 11/03/2020 12:00:00 AM EDT a ctive Plaquenil 200 MG eCW1 ([facility]) Hydroxychloroquine Sulfate 200 MG Oral Tablet [[place]en [place]] Plaquenil 200 MG Plaquenil 200 MG 11/03/2020 12:00:00 AM EDT a ctive Plaquenil 200 MG eCW1 ([facility]) 10 mg 09/15/2020 12:00:00 AM EDT tablet [...] type / Coverage type Policy ID Covered alliance party ID Covered alliance party's relationship to rhodes Policy Rhodes Plan Information MEDICARE A [id number] Self [id number] A EMPIR PLAN [facility] U [id number] Spouse [id number] BLUE CARD C [id number] Spouse [id number] [facility] [id number] 2 [id number] [facility] [id number] 2 [id number] [facility] [id number] 2 [id number] MEDICARE [id number] A ANSI-Medicare Part B [id number] ANSI-Commercial [id number] Medicare [place] Med[place] Part B [id number] Self [id number] [facility] Health Maintenance Organization (O) [id number] Family Dependent [id number] Medicare Part B Medicare Primary [id number] Self [id number] [facility] Commercial [id number] Family Dependent [id number] [facility] [id number] Self [id number] [facility] Commercial [id number] Family Dependent [id number] MEDICARE S [id number] S [id number] A [facility] P [id number] S [id number] MEDICARE PART A-RECURRING [id number] 18 [id number] MEDICARE [id number] SP [id number] MANAGED PHYSICAL NETWORK -RCR [id number] 01 [id number] [facility] [id number] [facility] [id number] [facility] [id number] Problems, Conditions, and Diagnoses Code Display Name Description Problem Type Effective Dates Data Source(s) 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 Problem 02/04/2021 12:00: 00 AM EDT eCW1 ([facility]) D68.61 [id number] Antiphospholipid antibody syndrome Proble m 09/25/2020 12:00:00 AM EDT eCW1 ([facility]) 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.19 [id number] 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, unspecified SLE type Problem 09/25/2020 12:00:00 AM EDT eCW1 ([facility]) M15.9 [id number] Generalized osteoarthritis Problem 12:00:00 AM EDT eCW1 ([facility]) 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 Prob jose 08/20/2020 12:00:00 AM EDT eCW1 ([facility]) M06.4 [id number] Undifferentiated inflammatory arthritis P roblem 08/20/2020 12:00:00 AM EDT eCW1 ([facility]) Surgeries/Procedures No Information Results ID Date Data Source Anti-U1 FISHERIES TECHNICAL OFFICER AB 08/20/2020 12:00:00 AM EDT eCW1 ([facility]) Name Value Range Interpretation Code Description Data Flor rce(s) Supporting Document(s) <20 <20 ANTI-U1 FISHERIES TECHNICAL OFFICER AB eCW1 ([facility]) ID Date Data Source Anti Hamm(Sm) AB 08/20/2020 12:00:00 AM EDT eCW1 ([facility]) Name Value Range Interpretation Code Description Data Flor rce(s) Supporting Document(s) <20 <20 ANTI HAMM(Sm) AB eCW1 ([facility]) ID Date Data Source ANTI-SJOGRENS A&B ANTIBODIES 08/20/2020 12:00:00 AM EDT eCW1 ([facility]) Name Value Range Interpretation Code Description Data Flor rce(s) Supporting Document(s) <0.2 0.0-0.9 SSB SJOGRENS B eCW1 ([facility]) <0.2 0.0-0.9 SSA SJOGRENS A eCW1 ([facility]) ID Date Data Source PHILIPP TITER & PATTERN 08/20/2020 12:00:00 AM EDT eCW1 ([facility]) Name Value Range Interpretation Code Description Data Flor rce(s) Supporting Document(s) Positive . PHILIPP (HEP2) eCW1 ([facility]) ID Date Data Source ANTI SCLERODERMA ANTIBODIES 08/20/2020 12:00:00 AM EDT eCW1 ([facility]) Name Value Range Interpretation Code Description Data Flor rce(s) Supporting Document(s) <0.2 0.0-0.9 ANTI SCLERODERMA ANTIBODI ES eCW1 ([facility]) ID Date Data Source CYCLIC CITRULLINATED PEPTIDE 08/20/2020 12:00:00 AM EDT eCW1 ([facility]) Name Value Range Interpretation Code Description Data Flor rce(s) Supporting Document(s) 6 0-19 CYCLIC CITRULLINATED PEPTIDE e CW1 ([facility]) ID Date Data Source ANTI DOUBLE STRAND DNA DENIA 08/20/2020 12:00:00 AM EDT eCW1 ( [facility]) Name Value Range Interpretation Code Description Data Flor rce(s) Supporting Document(s) ANTI DOUBLE STRAND DNA DENIA eCW 1 ([facility]) ID Date Data Source LUPUS TYPE ANTICOAGULANT SCREE 08/20/2020 12:00:00 AM EDT eC W1 ([facility]) Name Value Range Interpretation Code Description Data Flor rce(s) Supporting Document(s) 2.6 0-1.2 PTT LUPUS TYPE ANTICOAG S CREEN eCW1 ([facility]) ID Date Data Source ANTI-HISTONE ANTIBODIES 08/20/2020 12:00:00 AM EDT eCW1 ([facility]) Name Value Range Interpretation Code Description Data Flor rce(s) Supporting Document(s) 0.3 0.0-0.9 ANTI-HISTONE ANTIBODIES eCW1 ( [facility]) ID Date Data Source ANTI-CARDIOLIPIN ANTIBODIES 08/20/2020 12:00:00 AM EDT eCW1 ([facility]) Name Value Range Interpretation Code Description Data Flor rce(s) Supporting Document(s) <9 0-11 CARDIOLIPIN IGA ANTIBODY eCW1 ([facility]) 27 0-14 CARDIOLIPIN IGG ANTIBODY eCW1 ([facility]) 118 0-12 CARDIOLIPIN IGM ANTIBODY eCW1 ([facility]) ID Date Data Source ANTI CENTROMERE ANTIBODY 08/20/2020 12:00:00 AM EDT eCW1 ([facility]) Name Value Range Interpretation Code Description Data Flor rce(s) Supporting Document(s) <0.2 0.0-0.9 ANTI CENTROMERE ANTIBODY eCW1 ([facility]) ID Date Data Source COMPLEMENT TOTAL (CH50) 08/20/2020 12:00:00 AM EDT eCW1 ([facility]) Name Value Range Interpretation Code Description Data Flor rce(s) Supporting Document(s) > 60 >41 COMPLEMENT TOTAL (CH50) eCW1 ( [facility]) ID Date Data Source BETA-2 GLYCOPROTEIN 1 DENIA KATEY 08/20/2020 12:00:00 AM EDT eCW 1 ([facility]) Name Value Range Interpretation Code Description Data Flor rce(s) Supporting Document(s) 20 0-20 BETA-2 GLYCOPROTEIN I DENIA IGG eCW1 ([facility]) >150 0-32 BETA-2 GLYCOPROTEIN I DENIA IGM eCW1 ([facility]) <9 0-25 BETA-2 GLYCOPROTEIN I DENIA IGA eCW1 ([facility]) ID Date Data Source VITAMIN B12 LEVEL 08/20/2020 12:00:00 AM EDT eCW1 ([facility]) Name Value Range Interpretation Code Description Data Flor rce(s) Supporting Document(s) 253 043-139 VITAMIN B12 LEVEL eCW1 ([facility]) ID Date Data Source MAGNESIUM LEVEL 08/20/2020 12:00:00 AM EDT eCW1 ([facility]) Name Value Range Interpretation Code Description Data Flor rce(s) Supporting Document(s) 2.6 1.8-2.4 MAGNESIUM LEVEL eCW1 ([facility]) ID Date Data Source VITAMIN D 25-HYDROXY 08/20/2020 12:00:00 AM EDT eCW1 ([facility]) Name Value Range Interpretation Code Description Data Flor rce(s) Supporting Document(s) 36.8 30.0-100.0 TOTAL 25(OH) VITAMIN D eC W1 ([facility]) ID Date Data Source PHOSPHOROUS LEVEL 08/20/2020 12:00:00 AM EDT eCW1 ([facility]) Name Value Range Interpretation Code Description Data Flor rce(s) Supporting Document(s) 3.8 2.5-4.9 PHOSPHORUS LEVEL eCW1 ([facility]) ID Date Data Source SERUM PROTEIN ELECTROPHORESIS (SPEP) 08/20/2020 12:00:00 AM EDT eCW1 ([facility]) Name Value Range Interpretation Code Description Data Flor rce(s) Supporting Document(s) 53.6 55.8-66.1 ALBUMIN % eCW1 (Counts include 234 beds at the [facility]) 5.7 2.9-4.9 WLNHL-3-LLJKGFTB % eCW1 (Critical access hospital) 6.5 3.2-6.5 DHAZ-1-DVVIPLIYQ % eCW1 (Critical access hospital) 15.4 7.1-11.8 TNXRT-2-HKGDFMHIK % eCW1 ([facility]) 7.0 4.7-7.2 EZDZ-3-SFCBUJHAR % eCW1 (Critical access hospital) 4.07 3.29-5.55 ALBUMIN eCW1 (Counts include 234 beds at the [facility]) 11.8 11.1-18.8 GAMMA GLOBULIN % eCW1 ([facility]) 0.43 0.17-0.41 IAGFT-9-DFPQMMBTI eCW1 ([facility]) 0.53 0.28-0.60 TWHY-0-NQONIUVZR eCW1 ([facility]) 0.49 0.19-0.55 FHDV-9-DFVKIQYVJ eCW1 ([facility]) 1.17 0.42-0.99 RAEFH-9-BUBAPWRDM eCW1 ([facility]) SEE COMMENT SPEP INTERPRETATION eCW1 ([facility]) 7.6 6.4-8.2 TOTAL PROTEIN eCW1 ([facility]) 0.90 0.65-1.58 GAMMA GLOBULINS eCW1 ([facility]) ID Date Data Source CREATININE,RANDOM URINE 08/20/2020 12:00:00 AM EDT eCW1 ([facility]) Name Value Range Interpretation Code Description Data Flor rce(s) Supporting Document(s) 124.0 CREATININE,RANDOM URINE eCW1 ( [facility]) ID Date Data Source UA URINALYSIS 08/20/2020 12:00:00 AM EDT eCW1 ([facility]) Name Value Range Interpretation Code Description Data Flor rce(s) Supporting Document(s) UA URINALYSIS eCW1 ([facility]) ID Date Data Source TOTAL PROTEIN,RANDOM URINE 08/20/2020 12:00:00 AM EDT eCW1 ( [facility]) Name Value Range Interpretation Code Description Data Flor rce(s) Supporting Document(s) 17.2 0.0-12.0 TOTAL PROTEIN,RANDOM URIN E eCW1 ([facility]) ID Date Data Source RHEUMATOID FACTOR QUANT 08/20/2020 12:00:00 AM EDT eCW1 ([facility]) Name Value Range Interpretation Code Description Data Flor rce(s) Supporting Document(s) 11.5 <15.0 RHEUMATOID FACTOR QUANT eCW1 ( [facility]) ID Date Data Source IRON (FE) 08/20/2020 12:00:00 AM EDT eCW1 ([facility]) Name Value Range Interpretation Code Description Data Flor rce(s) Supporting Document(s) 38 50-170 IRON (FE) eCW1 (Counts include 234 beds at the [facility]) ID Date Data Source CPK CREATINE PHOSPHOKINASE 08/20/2020 12:00:00 AM EDT eCW1 ( [facility]) Name Value Range Interpretation Code Description Data Flor rce(s) Supporting Document(s) 56 26-192 CPK CREATINE PHOSPHOKINASE eCW 1 ([facility]) ID Date Data Source LIVER PROFILE 08/20/2020 12:00:00 AM EDT eCW1 ([facility]) Name Value Range Interpretation Code Description Data Flor rce(s) Supporting Document(s) 20 12-78 ALT/SGPT eCW1 (Counts include 234 beds at the [facility]) 15 7-37 AST/SGOT eCW1 (Counts include 234 beds at the [facility]) 0.1 0.0-0.2 BILIRUBIN,DIRECT eCW1 ([facility]) 191 45-117 ALKALINE PHOSPHATASE eCW1 ([facility]) 0.3 0.2-1.0 BILIRUBIN,TOTAL eCW1 ([facility]) 4.0 3.2-5.2 ALBUMIN eCW1 (Counts include 234 beds at the [facility]) 1.1 1.2-2.2 ALBUMIN/GLOBULIN RATIO eCW1 ([facility]) 7.6 6.4-8.2 TOTAL PROTEIN eCW1 ([facility]) ID Date Data Source ERYTHROCYTE SEDIMENTATION RATE 08/20/2020 12:00:00 AM EDT eC W1 ([facility]) Name Value Range Interpretation Code Description Data Flor rce(s) Supporting Document(s) 27 0-30 ERYTHROCYTE SEDIMENTATION RATE eCW1 ([facility]) ID Date Data Source Basic Metabolic Profile (BMP) 08/20/2020 12:00:00 AM EDT eCW 1 ([facility]) Name Value Range Interpretation Code Description Data Flor rce(s) Supporting Document(s) 15 7-18 BLOOD UREA NITROGEN eCW1 ([facility]) 121 70-100 GLUCOSE, FASTING eCW1 ([facility]) 0.83 0.55-1.30 CREATININE FOR GFR eCW1 (Critical access hospital) 140 136-145 SODIUM LEVEL eCW1 ([facility]) > 60.0 >51 GLOMERULAR FILTRATION RATE eCW 1 ([facility]) 26 21-32 CARBON DIOXIDE LEVEL eCW1 ([facility]) 4.3 3.5-5.1 POTASSIUM SERUM eCW1 ([facility]) 106 98-107 CHLORIDE LEVEL eCW1 ([facility]) 10.0 8.5-10.1 CALCIUM LEVEL eCW1 ([facility]) ID Date Data Source C REACTIVE PROTEIN QUANTITATIV (At [facility]) 08/20/2020 12:00 :00 AM EDT eCW1 ([facility]) Name Value Range Interpretation Code Description Data Flor rce(s) Supporting Document(s) 2.11 0.00-0.30 C REACTIVE PROTEIN QUANTI TATIV eCW1 ([facility]) ID Date Data Source CBC with Differential 08/20/2020 12:00:00 AM EDT eCW1 ([facility] hospital) Name Value Range Interpretation Code Description Data Flor rce(s) Supporting Document(s) 13.1 4.0-10.0 WHITE BLOOD COUNT eCW1 ([facility]) 5.43 4.00-5.40 RED BLOOD COUNT eCW1 ([facility]) 14.9 12.0-15.5 HEMOGLOBIN eCW1 ([facility]) 47.4 36.0-47.0 HEMATOCRIT eCW1 ([facility]) 87.3 80.0-96.0 MEAN CORPUSCULAR VOLUME e CW1 ([facility]) 27.4 27.0-33.0 MEAN CORPUSCULAR HEMOGLOB IN eCW1 ([facility]) 31.4 32.0-36.5 MEAN CORPUSCULAR HGB CONC eCW1 ([facility]) 322 150-450 PLATELET COUNT, AUTOMATED eCW1 ([facility]) 69.4 36.0-66.0 NEUTROPHILS % eCW1 ([facility]) 14.3 11.5-14.5 RED CELL DISTRIBUTION WID TH eCW1 ([facility]) 4.9 2.0-8.0 MONO % eCW1 (Counts include 234 beds at the [facility]) 23.5 24.0-44.0 LYMPH % eCW1 (Counts include 234 beds at the [facility]) 1.5 0.0-3.0 EOS % eCW1 (Counts include 234 beds at the [facility]) 9.1 1.5-8.5 NEUTROPHILS # eCW1 ([facility]) 0.4 0.0-1.0 BASO % eCW1 (Counts include 234 beds at the [facility]) 0.2 0.0-0.5 EOS # eCW1 (Counts include 234 beds at the [facility]) 0.6 0.0-0.8 MONO # eCW1 (Counts include 234 beds at the [facility]) 3.1 1.5-5.0 LYMPH # eCW1 (Counts include 234 beds at the [facility]) 0.1 0.0-0.2 BASO # eCW1 (Counts include 234 beds at the [facility]) ID Date Data Source COMPLEMENT C4 08/20/2020 12:00:00 AM EDT eCW1 ([facility]) Name Value Range Interpretation Code Description Data Flor rce(s) Supporting Document(s) 22 10-40 COMPLEMENT C4 eCW1 ([facility]) ID Date Data Source COMPLEMENT C3 08/20/2020 12:00:00 AM EDT eCW1 ([facility]) Name Value Range Interpretation Code Description Data Flor rce(s) Supporting Document(s) 161 90-180 COMPLEMENT C3 eCW1 ([facility]) Procedure Social History Code Duration Value Status Description Data Source(s ) Smoking 02/04/2021 12:00:00 AM EDT Current Smoker completed Curre nt Smoker eCW1 ([facility]) Smoking 02/04/2021 12:00:00 AM EDT Current Smoker completed Curre nt Smoker eCW1 ([facility]) Smoking 11/03/2020 12:00:00 AM EDT Current Smoker completed Curre nt Smoker eCW1 ([facility]) Smoking 11/03/2020 12:00:00 AM EDT Current Smoker completed Curre nt Smoker eCW1 ([facility]) Smoking 11/03/2020 12:00:00 AM EDT Current Smoker completed Curre nt Smoker eCW1 ([facility]) Smoking 09/25/2020 12:00:00 AM EDT Current Smoker completed Curre nt Smoker eCW1 ([facility]) Smoking 09/25/2020 12:00:00 AM EDT Current Smoker completed Curre nt Smoker eCW1 ([facility]) Smoking 09/25/2020 12:00:00 AM EDT Current Smoker completed Curre nt Smoker eCW1 ([facility]) Smoking 08/20/2020 12:00:00 AM EDT Current Smoker completed Curre nt Smoker eCW1 ([facility]) Smoking 08/20/2020 12:00:00 AM EDT Current Smoker completed Curre nt Smoker eCW1 ([facility]) Vital Signs ID Date Data Source UNK Name Value Range Interpretation Code Description Data Source(s) Body weight 413.2 [lb_av] 413.2 [lb_av] eCW1 ([facility]) Body weight 187.43 kg 187.43 kg eCW1 ([facility]) Body height 68 [in_i] 68 [in_i] eCW1 ([facility]) Body mass index (BMI) [Ratio] 62.82 kg/m2 62.82 kg/m2 eCW1 ([facility]) Heart rate 95 /min 95 /min eCW1 ([facility]) Respiratory rate 18 /min 18 /min eCW1 ([facility]) Body temperature 97.6 [degF] 97.6 [degF] eCW1 ( [facility]) Systolic blood pressure 134 mm[Hg] 134 mm[Hg] e CW1 ([facility]) Diastolic blood pressure 82 mm[Hg] 82 mm[Hg] eCW1 ([facility]) Body weight 189.3 kg 189.3 kg eCW1 ([facility]) Body weight 417.4 [lb_av] 417.4 [lb_av] eCW1 ([facility]) Body mass index (BMI) [Ratio] 63.46 kg/m2 63.46 kg/m2 eCW1 ([facility]) Respiratory rate 18 /min 18 /min eCW1 ([facility]) Heart rate 93 /min 93 /min eCW1 ([facility]) Body temperature 97.6 [degF] 97.6 [degF] eCW1 ( [facility]) Systolic blood pressure 132 mm[Hg] 132 mm[Hg] e CW1 ([facility]) Diastolic blood pressure 68 mm[Hg] 68 mm[Hg] eCW1 ([facility]) Body height 68 [in_i] 68 [in_i] eCW1 ([facility]) Body weight 418.6 [lb_av] 418.6 [lb_av] eCW1 ([facility]) Diastolic blood pressure 76 mm[Hg] 76 mm[Hg] eCW1 ([facility]) Body weight 189.8 kg 189.8 kg eCW1 ([facility]) Body height 68 [in_i] 68 [in_i] eCW1 ([facility]) Body mass index (BMI) [Ratio] 63.64 kg/m2 63.64 kg/m2 eCW1 ([facility]) Heart rate 110 /min 110 /min eCW1 ([facility]) Respiratory rate 18 /min 18 /min eCW1 ([facility]) Body temperature 97.6 [degF] 97.6 [degF] eCW1 ( [facility]) Systolic blood pressure 124 mm[Hg] 124 mm[Hg] e CW1 ([facility]) Patient Treatment Plan of Care Planned Activity Planned Date Details Description Data Source (s) Hydroxychloroquine Sulfate 200 MG Oral Tablet [[place]] 11/03/2020 12:00:00 AM EDT eCW1 (Counts include 234 beds at the [facility]) Hydroxychloroquine Sulfate 200 MG Oral Tablet [[place]] 11/03/2020 12:00:00 AM EDT eCW1 (Counts include 234 beds at the [facility]) Hydroxychloroquine Sulfate 200 MG Oral Tablet [[place]] 11/03/2020 12:00:00 AM EDT eCW1 (Counts include 234 beds at the [facility]) Hydroxychloroquine Sulfate 200 MG Oral Tablet [[place]] 11/03/2020 12:00:00 AM EDT eCW1 (Counts include 234 beds at the [facility])
[2021-04-17 12:51] LABS: VENOUS BASE EXCESS 0.5 (-2.0-2.0); VENOUS HCO3 25.4 MEQ/L (23.0-27.0); VENOUS O2 SATURATION 70.4 % (60.0-80.0); VENOUS PARTIAL PRESSURE CO2 41.6 mmHg (38.0-50.0); VENOUS PARTIAL PRESSURE O2 35.4 mmHg (30.0-50.0); VENOUS PH 7.403 UNITS (7.330-7.430); VENOUS STANDARD HCO3 24.2 MEQ/L; VENOUS TOTAL CO2 26.6 MEQ/L (24.0-28.0)
[2021-04-17 12:55] LABS: BASO % 0.3 % (0.0-1.0); EOS % 0.3 % (0.0-3.0); HEMATOCRIT 45.7 % (36.0-47.0); HEMOGLOBIN 14.3 g/dl (12.0-15.5); LYMPH % 17.3 % (24.0-44.0); MEAN CORPUSCULAR HEMOGLOBIN 28.5 pg (27.0-33.0); MEAN CORPUSCULAR HGB CONC 31.3 g/dl (32.0-36.5); MEAN CORPUSCULAR VOLUME 91.2 fl (80.0-96.0); MONO # 0.4 10^3/uL (0.0-0.8); MONO % 6.1 % (2.0-8.0); NEUTROPHILS # 4.5 10^3/uL (1.5-8.5); NEUTROPHILS % 75.3 % (36.0-66.0); PLATELET COUNT, AUTOMATED 194 10^3/uL (150-450); RED BLOOD COUNT 5.01 10^6/uL (4.00-5.40); WHITE BLOOD COUNT 5.9 10^3/uL (4.0-10.0)
[2021-04-17] MEDS: COMBIVENT RESPIMAT 100-20MCG INHALER 4GM INH SCH ×3 (13:18→17:44)
[2021-04-17 13:39] LABS: ALBUMIN 3.5 GM/DL (3.2-5.2); ALT/SGPT 32 U/L (12-78); BILIRUBIN,DIRECT < 0.1 MG/DL (0.0-0.2); BILIRUBIN,TOTAL 0.4 MG/DL (0.2-1.0); BLOOD UREA NITROGEN 8 MG/DL (7-18); CALCIUM LEVEL 9.1 MG/DL (8.5-10.1); CARBON DIOXIDE LEVEL 26 MEQ/L (21-32); CHLORIDE LEVEL 106 MEQ/L (98-107); CREATININE FOR GFR 0.73 MG/DL (0.55-1.30); GLOMERULAR FILTRATION RATE > 60.0 (>51); GLUCOSE, FASTING 115 MG/DL (70-100); POTASSIUM SERUM 5.7 MEQ/L (3.5-5.1); SODIUM LEVEL 139 MEQ/L (136-145); THYROID STIMULATING HORMONE 0.925 uIU/ML (0.358-3.740); TOTAL PROTEIN 7.1 GM/DL (6.4-8.2)
[2021-04-17] MEDS ORDERED: HYDR200T3 PO (13:45)
[2021-04-17] MEDS ORDERED: WARF-58 PO (13:45)
[2021-04-17] MEDS ORDERED: MIRA0.12 PO (13:45)
[2021-04-17] MEDS ORDERED: MULT-40 PO (13:45)
[2021-04-17] MEDS ORDERED: NATU1TAB5 PO (13:45)
[2021-04-17] MEDS ORDERED: HOME MED LIST COMPLETE! XX SCH (13:45)
[2021-04-17] MEDS ORDERED: CALCD50TA PO (13:45)
[2021-04-17] MEDS ORDERED: DIPH50CA PO (13:45)
[2021-04-17] MEDS ORDERED: WARF4TAB51 PO (13:45)
[2021-04-17] MEDS ORDERED: FERR1TAB8 PO (13:45)
--- NOTE | 2021-04-17 14:03 | REP ---
INDICATION: DYSPNEA/COUGH. COMPARISON: January 17, 2017. TECHNIQUE: Sitting AP portable chest radiograph. FINDINGS: The right hemidiaphragm is slightly elevated unchanged. EKG monitoring electrodes are present. The heart is not enlarged. Pleural angles no infiltrate is visible in the lung pfeiffer. Cardiomediastinal silhouette is unchanged. There are surgical clips in the soft tissues of the neck on the right. Are sharp. IMPRESSION: No active disease. <Electronically signed by Renan Bell > 04/17/21 1400
[2021-04-17] MEDS ORDERED: methylPREDNISolone 125MG 2ML VIAL IV ONE (14:10)
[2021-04-17] MEDS ORDERED: ACETAMINOPHEN 500 MG TAB PO ONE (14:10)
[2021-04-17] MEDS ORDERED: LIDOCAINE 5% (LIDODERM) PATCH TD ONE (14:10)
[2021-04-17] MEDS ORDERED: diphenhydrAMINE 50MG CAP PO PRN (14:55)
[2021-04-17] MEDS ORDERED: DOCUSATE SODIUM 100MG CAPSULE PO PRN (14:55)
[2021-04-17] MEDS ORDERED: CEPACOL LOZENGE PO PRN (14:55)
--- OUTSIDE RECORDS SUMMARY | 2021-04-17 14:56 | CCD ---
Author Author [facility] Organization [facility] Address Unknown Phone Unavailable Support Name Relationship Address Phone ROSE WHITE Next Of Kin [address] [facility] [address] [place], [place] [phone] DISABLED Next Of Kin Unknown Unavailable SHER Next Of Kin UN UN, UN UN ALISSA PEREZ Next Of Kin [address] [place] [address] Alissa Perez [facility] [address] [place] [id number] Re-disclosure Warning The records that you are [...] is protected by Article 27-F of the [facility] Public Health law. If you continue you may have access to information: Regarding HIV / AIDS; Provided by facilities licensed or operated by the [facility] Office of Mental Health; or Provided by the [facility] Office for People With Developmental Disabilities. If such information is present, then the following [facility] mandated warning applies: This information has [...] law may result in a fine or longterm sentence or both. A general authorization for [...] Date Indications Data Source(s ) Unknown [address] [facility] [place] [address] 03/03/2021 12:00:00 AM EDT eCW1 [facility] Outpatient [address] [facility] [place] [address] 02/04/2021 12:00:00 AM EDT eCW1 ([facility]) Unknown [address] [facility] [place] [address] 11/03/2020 12:00:00 AM EDT eCW1 ([facility]) TeleMedicine Phone E/M by Lance 21-[address] [place] [address] 11/03/2020 12:00:00 AM EDT eCW1 ([facility]) [place] [address] [facility] [place] [address] 11/02/2020 12:00:00 AM EDT eCW1 [facility]) [place] [address] [facility] [place] [address] 10/30/2020 12:00:00 AM EDT eCW1 ([facility]) Unknown [address] [facility] [place] [address] 10/12/2020 12:00:00 AM EDT eCW1 [facility] Outpatient [address] [facility] [place] [address] 09/25/2020 12:00:00 AM EDT eCW1 ([facility]) Unknown [address] [facility] [place] [address] 08/29/2020 12:00:00 AM EDT eCW1 ([facility]) [place]patient [address] [facility] [place] [address] 08/20/2020 12:00:00 AM EDT eCW1 ([facility]) Medications Medication Brand Name Start Date Product [...] 1.0 {tablet} active Zinc 50 MG eCW1 ([facility]) Zinc 50 MG Zinc 50 MG 02/04/2021 12:00:00 AM EDT 1.0 {tablet} active Zinc 50 MG eCW1 ([facility]) 2 mg 12/25/2020 12:00:00 AM EDT tablet [...] EDT a ctive Plaquenil 200 MG eCW1 ([facility]) Hydroxychloroquine Sulfate 200 MG Oral Tablet [Plaquen il] Plaquenil 200 MG Plaquenil 200 MG 11/03/2020 12:00:00 AM EDT a ctive Plaquenil 200 MG eCW1 ([facility]) Hydroxychloroquine Sulfate 200 MG Oral Tablet [Plaquen il] Plaquenil 200 MG Plaquenil 200 MG 11/03/2020 12:00:00 AM EDT a ctive Plaquenil 200 MG eCW1 ([facility]) Hydroxychloroquine Sulfate 200 MG Oral Tablet [[place]aqu[place]] Plaquenil 200 MG Plaquenil 200 MG 11/03/2020 12:00:00 AM EDT a ctive Plaquenil 200 MG eCW1 ([facility]) Hydroxychloroquine Sulfate 200 MG Oral Tablet [Plaquen [place]] Plaquenil 200 MG Plaquenil 200 MG 11/03/2020 12:00:00 AM EDT a ctive Plaquenil 200 MG eCW1 ([facility]) 10 mg 09/15/2020 12:00:00 AM EDT tablet [...] rhodes Policy Rhodes Plan Information MEDICARE A [id number] Self [id number] A EMPIR PLAN [facility] U [id number] Spouse [id number] BLUE CARD C [id number] Spouse [id number] [facility] [id number] 2 [id number] [facility] [id number] 2 [id number] [facility] [id number] 2 [id number] MEDICARE [id number] A ANSI-Medicare Part B [id number] ANSI-Commercial [id number] Medicare [place] Medigap Part B [id number] Self [id number] [facility] Health Maintenance Organization (O) [id number] Family Dependent [id number] Medicare Part B Medicare Primary [id number] Self [id number] [facility] Commercial [id number] Family Dependent [id number] [facility] Part B [id number] Self [id number] [facility] Commercial [id number] Family Dependent [id number] MEDICARE S [id number] S [id number] A [facility] P [id number] S [id number] MEDICARE PART A-RECURRING [id number] 18 [id number] MEDICARE [id number] SP [id number] MANAGED PHYSICAL NETWORK -RCR [id number] 01 [id number] [facility] [id number] [facility] [id number] [facility] [id number] Problems, Conditions, and Diagnoses Code Display Name Description Problem Type Effective Dates Data Source(s) 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 Problem 02/04/2021 12:00: 00 AM EDT eCW1 ([facility]) D68.61 [id number] Antiphospholipid antibody syndrome Proble m 09/25/2020 12:00:00 AM EDT eCW1 ([facility]) 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, unspecified SLE type Problem 09/25/2020 12:00:00 AM EDT eCW1 ([facility]) M15.9 [id number] Generalized osteoarthritis Problem 12:00:00 AM EDT eCW1 ([facility]) 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 08/20/2020 12:00:00 AM EDT eCW1 ([facility]) M06.4 [id number] Undifferentiated inflammatory arthritis P roblem 08/20/2020 12:00:00 AM EDT eCW1 ([facility]) Surgeries/Procedures No Information Results ID Date Data Source Anti-U1 CLINICAL RN AB 08/20/2020 12:00:00 AM EDT eCW1 ([facility]) Name Value Range Interpretation Code Description Data Flor rce(s) Supporting Document(s) <20 <20 ANTI-U1 CLINICAL RN AB eCW1 ([facility]) ID Date Data Source Anti Hamm(Sm) AB 08/20/2020 12:00:00 AM EDT eCW1 ([facility]) Name Value Range Interpretation Code Description Data Flor rce(s) Supporting Document(s) <20 <20 ANTI HAMM(Sm) AB eCW1 ([facility]) ID Date Data Source ANTI-SJOGRENS A&B ANTIBODIES 08/20/2020 12:00:00 AM EDT eCW1 ([facility]) Name Value Range Interpretation Code Description Data Flor rce(s) Supporting Document(s) <0.2 0.0-0.9 SSB SJOGRENS B eCW1 ([facility]) <0.2 0.0-0.9 SSA SJOGRENS A eCW1 ([facility]) ID Date Data Source PHILIPP TITER & PATTERN 08/20/2020 12:00:00 AM EDT eCW1 ([facility]) Name Value Range Interpretation Code Description Data Flor rce(s) Supporting Document(s) Positive . PHILIPP (HEP2) eCW1 ([facility]) ID Date Data Source ANTI SCLERODERMA ANTIBODIES 08/20/2020 12:00:00 AM EDT eCW1 ([facility]) Name Value Range Interpretation Code Description Data Flor rce(s) Supporting Document(s) <0.2 0.0-0.9 ANTI SCLERODERMA ANTIBODI ES eCW1 ([facility]) ID Date Data Source CYCLIC CITRULLINATED PEPTIDE 08/20/2020 12:00:00 AM EDT eCW1 ([facility]) Name Value Range Interpretation Code Description Data Flor rce(s) Supporting Document(s) 6 0-19 CYCLIC CITRULLINATED PEPTIDE e CW1 ([facility]) ID Date Data Source ANTI DOUBLE STRAND DNA DENIA 08/20/2020 12:00:00 AM EDT eCW1 ( [facility]) Name Value Range Interpretation Code Description Data Flor rce(s) Supporting Document(s) ANTI DOUBLE STRAND DNA DENIA eCW 1 ([facility]) ID Date Data Source LUPUS TYPE ANTICOAGULANT SCREE 08/20/2020 12:00:00 AM EDT eC W1 ([facility]) Name Value Range Interpretation Code Description Data Flor rce(s) Supporting Document(s) 2.6 0-1.2 PTT LUPUS TYPE ANTICOAG S CREEN eCW1 ([facility]) ID Date Data Source ANTI-HISTONE ANTIBODIES 08/20/2020 12:00:00 AM EDT eCW1 ([facility]) Name Value Range Interpretation Code Description Data Flor rce(s) Supporting Document(s) 0.3 0.0-0.9 ANTI-HISTONE ANTIBODIES eCW1 ( [facility]) ID Date Data Source ANTI-CARDIOLIPIN ANTIBODIES 08/20/2020 12:00:00 AM EDT eCW1 ([facility]) Name Value Range Interpretation Code Description Data Flor rce(s) Supporting Document(s) <9 0-11 CARDIOLIPIN IGA ANTIBODY eCW1 ([facility]) 27 0-14 CARDIOLIPIN IGG ANTIBODY eCW1 ([facility]) 118 0-12 CARDIOLIPIN IGM ANTIBODY eCW1 ([facility]) ID Date Data Source ANTI CENTROMERE ANTIBODY 08/20/2020 12:00:00 AM EDT eCW1 ([facility]) Name Value Range Interpretation Code Description Data Flor rce(s) Supporting Document(s) <0.2 0.0-0.9 ANTI CENTROMERE ANTIBODY eCW1 ([facility]) ID Date Data Source COMPLEMENT TOTAL (CH50) 08/20/2020 12:00:00 AM EDT eCW1 ([facility]) Name Value Range Interpretation Code Description Data Flor rce(s) Supporting Document(s) > 60 >41 COMPLEMENT TOTAL (CH50) eCW1 ( [facility]) ID Date Data Source BETA-2 GLYCOPROTEIN 1 DENIA KATEY 08/20/2020 12:00:00 AM EDT eCW 1 ([facility]) Name Value Range Interpretation Code Description Data Flor rce(s) Supporting Document(s) 20 0-20 BETA-2 GLYCOPROTEIN I DENIA IGG eCW1 ([facility]) >150 0-32 BETA-2 GLYCOPROTEIN I DENIA IGM eCW1 ([facility]) <9 0-25 BETA-2 GLYCOPROTEIN I DENIA IGA eCW1 ([facility]) ID Date Data Source VITAMIN B12 LEVEL 08/20/2020 12:00:00 AM EDT eCW1 ([facility]) Name Value Range Interpretation Code Description Data Flor rce(s) Supporting Document(s) 162 199-340 VITAMIN B12 LEVEL eCW1 ([facility]) ID Date Data Source MAGNESIUM LEVEL 08/20/2020 12:00:00 AM EDT eCW1 ([facility]) Name Value Range Interpretation Code Description Data Flor rce(s) Supporting Document(s) 2.6 1.8-2.4 MAGNESIUM LEVEL eCW1 ([facility]) ID Date Data Source VITAMIN D 25-HYDROXY 08/20/2020 12:00:00 AM EDT eCW1 ([facility]) Name Value Range Interpretation Code Description Data Flor rce(s) Supporting Document(s) 36.8 30.0-100.0 TOTAL 25(OH) VITAMIN D eC W1 ([facility]) ID Date Data Source PHOSPHOROUS LEVEL 08/20/2020 12:00:00 AM EDT eCW1 ([facility]) Name Value Range Interpretation Code Description Data Flor rce(s) Supporting Document(s) 3.8 2.5-4.9 PHOSPHORUS LEVEL eCW1 ([facility]) ID Date Data Source SERUM PROTEIN ELECTROPHORESIS (SPEP) 08/20/2020 12:00:00 AM EDT eCW1 ([facility]) Name Value Range Interpretation Code Description Data Flor rce(s) Supporting Document(s) 53.6 55.8-66.1 ALBUMIN % eCW1 ([facility]) 5.7 2.9-4.9 YJDLF-7-DVFIADJS % eCW1 ([facility]) 6.5 3.2-6.5 SDIY-6-OPSHTQSLH % eCW1 ([facility]) 15.4 7.1-11.8 IBLTD-7-AWTJAGBUO % eCW1 ([facility]) 7.0 4.7-7.2 OLIE-7-LAVZMJEPV % eCW1 ([facility]) 4.07 3.29-5.55 ALBUMIN eCW1 ([facility]) 11.8 11.1-18.8 GAMMA GLOBULIN % eCW1 ([facility]) 0.43 0.17-0.41 AABDL-2-KPVKJCJMS eCW1 ([facility]) 0.53 0.28-0.60 MUPN-0-NPJVHBTIF eCW1 ([facility]) 0.49 0.19-0.55 MXMF-5-OEVMUXPDG eCW1 ([facility]) 1.17 0.42-0.99 QMGYL-9-TRXKJDSRP eCW1 ([facility]) SEE COMMENT SPEP INTERPRETATION eCW1 ([facility]) 7.6 6.4-8.2 TOTAL PROTEIN eCW1 ([facility]) 0.90 0.65-1.58 GAMMA GLOBULINS eCW1 ([facility]) ID Date Data Source CREATININE,RANDOM URINE 08/20/2020 12:00:00 AM EDT eCW1 ([facility]) Name Value Range Interpretation Code Description Data Flor rce(s) Supporting Document(s) 124.0 CREATININE,RANDOM URINE eCW1 ( [facility]) ID Date Data Source UA URINALYSIS 08/20/2020 12:00:00 AM EDT eCW1 ([facility]) Name Value Range Interpretation Code Description Data Flor rce(s) Supporting Document(s) UA URINALYSIS eCW1 ([facility]) ID Date Data Source TOTAL PROTEIN,RANDOM URINE 08/20/2020 12:00:00 AM EDT eCW1 ( [facility]) Name Value Range Interpretation Code Description Data Flor rce(s) Supporting Document(s) 17.2 0.0-12.0 TOTAL PROTEIN,RANDOM URIN E eCW1 ([facility]) ID Date Data Source RHEUMATOID FACTOR QUANT 08/20/2020 12:00:00 AM EDT eCW1 ([facility]) Name Value Range Interpretation Code Description Data Flor rce(s) Supporting Document(s) 11.5 <15.0 RHEUMATOID FACTOR QUANT eCW1 ( [facility]) ID Date Data Source IRON (FE) 08/20/2020 12:00:00 AM EDT eCW1 ([facility]) Name Value Range Interpretation Code Description Data Flor rce(s) Supporting Document(s) 38 50-170 IRON (FE) eCW1 ([facility]) ID Date Data Source CPK CREATINE PHOSPHOKINASE 08/20/2020 12:00:00 AM EDT eCW1 ( [facility]) Name Value Range Interpretation Code Description Data Flor rce(s) Supporting Document(s) 56 26-192 CPK CREATINE PHOSPHOKINASE eCW 1 ([facility]) ID Date Data Source LIVER PROFILE 08/20/2020 12:00:00 AM EDT eCW1 ([facility]) Name Value Range Interpretation Code Description Data Flor rce(s) Supporting Document(s) 20 12-78 ALT/SGPT eCW1 ([facility]) 15 7-37 AST/SGOT eCW1 ([facility]) 0.1 0.0-0.2 BILIRUBIN,DIRECT eCW1 ([facility]) 191 45-117 ALKALINE PHOSPHATASE eCW1 ([facility]) 0.3 0.2-1.0 BILIRUBIN,TOTAL eCW1 ([facility]) 4.0 3.2-5.2 ALBUMIN eCW1 ([facility]) 1.1 1.2-2.2 ALBUMIN/GLOBULIN RATIO eCW1 ([facility]) 7.6 6.4-8.2 TOTAL PROTEIN eCW1 ([facility]) ID Date Data Source ERYTHROCYTE SEDIMENTATION RATE 08/20/2020 12:00:00 AM EDT eC W1 ([facility]) Name Value Range Interpretation Code Description Data Flor rce(s) Supporting Document(s) 27 0-30 ERYTHROCYTE SEDIMENTATION RATE eCW1 ([facility]) ID Date Data Source Basic Metabolic Profile (BMP) 08/20/2020 12:00:00 AM EDT eCW 1 ([facility]) Name Value Range Interpretation Code Description Data Flor rce(s) Supporting Document(s) 15 7-18 BLOOD UREA NITROGEN eCW1 ([facility]) 121 70-100 GLUCOSE, FASTING eCW1 ([facility]) 0.83 0.55-1.30 CREATININE FOR GFR eCW1 ([facility]) 140 136-145 SODIUM LEVEL eCW1 ([facility]) > 60.0 >51 GLOMERULAR FILTRATION RATE eCW 1 ([facility]) 26 21-32 CARBON DIOXIDE LEVEL eCW1 ([facility]) 4.3 3.5-5.1 POTASSIUM SERUM eCW1 ([facility]) 106 98-107 CHLORIDE LEVEL eCW1 ([facility]) 10.0 8.5-10.1 CALCIUM LEVEL eCW1 ([facility]) ID Date Data Source C REACTIVE PROTEIN QUANTITATIV (At [facility]) 08/20/2020 12:00 :00 AM EDT eCW1 ([facility]) Name Value Range Interpretation Code Description Data Flor rce(s) Supporting Document(s) 2.11 0.00-0.30 C REACTIVE PROTEIN QUANTI TATIV eCW1 ([facility]) ID Date Data Source CBC with Differential 08/20/2020 12:00:00 AM EDT eCW1 ([facility]) Name Value Range Interpretation Code Description Data Flor rce(s) Supporting Document(s) 13.1 4.0-10.0 WHITE BLOOD COUNT eCW1 ([facility]) 5.43 4.00-5.40 RED BLOOD COUNT eCW1 ([facility]) 14.9 12.0-15.5 HEMOGLOBIN eCW1 ([facility]) 47.4 36.0-47.0 HEMATOCRIT eCW1 ([facility]) 87.3 80.0-96.0 MEAN CORPUSCULAR VOLUME e CW1 ([facility]) 27.4 27.0-33.0 MEAN CORPUSCULAR HEMOGLOB IN eCW1 ([facility]) 31.4 32.0-36.5 MEAN CORPUSCULAR HGB CONC eCW1 ([facility]) 322 150-450 PLATELET COUNT, AUTOMATED eCW1 ([facility]) 69.4 36.0-66.0 NEUTROPHILS % eCW1 ([facility]) 14.3 11.5-14.5 RED CELL DISTRIBUTION WID TH eCW1 ([facility]) 4.9 2.0-8.0 MONO % eCW1 ([facility]) 23.5 24.0-44.0 LYMPH % eCW1 ([facility]) 1.5 0.0-3.0 EOS % eCW1 ([facility]) 9.1 1.5-8.5 NEUTROPHILS # eCW1 ([facility]) 0.4 0.0-1.0 BASO % eCW1 ([facility]) 0.2 0.0-0.5 EOS # eCW1 ([facility]) 0.6 0.0-0.8 MONO # eCW1 ([facility]) 3.1 1.5-5.0 LYMPH # eCW1 ([facility]) 0.1 0.0-0.2 BASO # eCW1 ([facility]) ID Date Data Source COMPLEMENT C4 08/20/2020 12:00:00 AM EDT eCW1 ([facility]) Name Value Range Interpretation Code Description Data Flor rce(s) Supporting Document(s) 22 10-40 COMPLEMENT C4 eCW1 ([facility]) ID Date Data Source COMPLEMENT C3 08/20/2020 12:00:00 AM EDT eCW1 ([facility]) Name Value Range Interpretation Code Description Data Flor rce(s) Supporting Document(s) 161 90-180 COMPLEMENT C3 eCW1 ([facility]) Procedure Social History Code Duration Value Status Description Data Source(s ) Smoking 02/04/2021 12:00:00 AM EDT Current Smoker completed Curre nt Smoker eCW1 ([facility]) Smoking 02/04/2021 12:00:00 AM EDT Current Smoker completed Curre nt Smoker eCW1 ([facility]) Smoking 11/03/2020 12:00:00 AM EDT Current Smoker completed Curre nt Smoker eCW1 ([facility]) Smoking 11/03/2020 12:00:00 AM EDT Current Smoker completed Curre nt Smoker eCW1 ([facility]) Smoking 11/03/2020 12:00:00 AM EDT Current Smoker completed Curre nt Smoker eCW1 ([facility]) Smoking 09/25/2020 12:00:00 AM EDT Current Smoker completed Curre nt Smoker eCW1 ([facility]) Smoking 09/25/2020 12:00:00 AM EDT Current Smoker completed Curre nt Smoker eCW1 ([facility]) Smoking 09/25/2020 12:00:00 AM EDT Current Smoker completed Curre nt Smoker eCW1 ([facility]) Smoking 08/20/2020 12:00:00 AM EDT Current Smoker completed Curre nt Smoker eCW1 ([facility]) Smoking 08/20/2020 12:00:00 AM EDT Current Smoker completed Curre nt Smoker eCW1 ([facility]) Vital Signs ID Date Data Source UNK Name Value Range Interpretation Code Description Data Source(s) Body weight 413.2 [lb_av] 413.2 [lb_av] eCW1 ([facility]) Body weight 187.43 kg 187.43 kg eCW1 ([facility]) Body height 68 [in_i] 68 [in_i] eCW1 ([facility]) Body mass index (BMI) [Ratio] 62.82 kg/m2 62.82 kg/m2 eCW1 ([facility]) Heart rate 95 /min 95 /min eCW1 ([facility]) Respiratory rate 18 /min 18 /min eCW1 ([facility]) Body temperature 97.6 [degF] 97.6 [degF] eCW1 ( [facility]) Systolic blood pressure 134 mm[Hg] 134 mm[Hg] e CW1 ([facility]) Diastolic blood pressure 82 mm[Hg] 82 mm[Hg] eCW1 ([facility]) Body weight 189.3 kg 189.3 kg eCW1 ([facility]) Body weight 417.4 [lb_av] 417.4 [lb_av] eCW1 ([facility]) Body mass index (BMI) [Ratio] 63.46 kg/m2 63.46 kg/m2 eCW1 ([facility]) Heart rate 93 /min 93 /min eCW1 ([facility]) Respiratory rate 18 /min 18 /min eCW1 ([facility]) Body temperature 97.6 [degF] 97.6 [degF] eCW1 ( [facility]) Systolic blood pressure 132 mm[Hg] 132 mm[Hg] e CW1 ([facility]) Diastolic blood pressure 68 mm[Hg] 68 mm[Hg] eCW1 ([facility]) Body height 68 [in_i] 68 [in_i] eCW1 ([facility]) Body weight 418.6 [lb_av] 418.6 [lb_av] eCW1 ([facility]) Diastolic blood pressure 76 mm[Hg] 76 mm[Hg] eCW1 ([facility]) Body weight 189.8 kg 189.8 kg eCW1 ([facility]) Body height 68 [in_i] 68 [in_i] eCW1 ([facility]) Body mass index (BMI) [Ratio] 63.64 kg/m2 63.64 kg/m2 eCW1 ([facility]) Heart rate 110 /min 110 /min eCW1 ([facility]) Respiratory rate 18 /min 18 /min eCW1 ([facility]) Body temperature 97.6 [degF] 97.6 [degF] eCW1 ( [facility]) Systolic blood pressure 124 mm[Hg] 124 mm[Hg] e CW1 ([facility]) Patient Treatment Plan of Care Planned Activity Planned Date Details Description Data Source (s) Hydroxychloroquine Sulfate 200 MG Oral Tablet [[place]] 11/03/2020 12:00:00 AM EDT eCW1 ([facility]) Hydroxychloroquine Sulfate 200 MG Oral Tablet [[place]] 11/03/2020 12:00:00 AM EDT eCW1 ([facility]) Hydroxychloroquine Sulfate 200 MG Oral Tablet [[place]] 11/03/2020 12:00:00 AM EDT eCW1 ([facility]) Hydroxychloroquine Sulfate 200 MG Oral Tablet [[place]] 11/03/2020 12:00:00 AM EDT eCW1 ([facility])
[2021-04-17 15:22] LABS: INR 2.35; PROTHROMBIN TIME 26.1 SECONDS (12.7-14.5)
--- NOTE | 2021-04-17 16:24 | HPEPDOC ---
General Date of Admission 04/17/2021 Date of Service: Apr 17, 2021 Chief Complaint The patient is a 51-year-old female admitted with a reason for visit of Short Of Breath. Source: Patient History of Present Illness Mrs. Perez is a 51-year-old female with lupus and protein C/protein S deficiency who presents with hypoxia. The Monday prior to Thanksgi, patient's stepdaughter felt well. She passed on to patient's . They both went to urgent care prior to and they tested negative for Covid. During this time, patient started to feel unwell. She had rhinorrhea and diarrhea. She felt congested and had coughing. Her cough is generally dry, but sometimes brings up sputum. She feels that she is unable to bring up sputum in her chest. About 2 days ago, she started to feel more short of breath. She decided coming to the ED. While in the ED she was hypoxic at room air at 87%. Patient required oxygen. Otherwise afebrile. Chest x-ray was negative for acute disease. There is no infiltrates. There is no leukocytosis. Covid test was negative. Patient was given Solu-Medrol 125 and duo nebs. When I saw patient, she was comfortably sitting up with nasal cannula in place she had a lot of rhonchi and some wheezing. Patient denies any fever or chills, chest pain, or dysuria. She had some abdominal pain from the coughing. Patient tells me she is still smoking. She declined a nicotine patch. Patient will be admitted for hypoxia due to RSV infection. Home Medications Scheduled Calcium/Vitamin D (Calcium 500-Vit D3 200 Tablet) 1 Each Tablet, 500 MG PO DAILY, (Reported) Cholecalciferol (Vitamin D3) (Vitamin D3) 125 Mcg Tablet, 125 MCG PO DAILY, (Reported) Ferrous Sulfate (Ferrous Sulfate) 325 Mg Tablet, 325 MG PO DAILY, (Reported) Hydroxychloroquine Sulfate (Hydroxychloroquine Sulfate) 200 Mg Tablet, 200 MG PO BID, (Reported) Multivitamin (Multivitamins) 1 Each Tablet, 1 TAB PO DAILY, (Reported) Pramipexole Di-HCl (Mirapex) 0.125 Mg Tablet, 0.125 MG PO QHS, (Reported) Prednisone (Prednisone) 10 Mg Tab, 5 MG PO DAILY, (Reported) TAKE WITH 3 1MG TABS. TOTAL OF 8MG Warfarin Sodium (Warfarin Sodium) 3 Mg Tablet, 3 MG PO 5XW, (Reported) MON,WED,THURS,SAT,SUN Warfarin Sodium (Warfarin Sodium) 2 Mg Tablet, 4 MG PO 2XW, (Reported) TUES, FRI Scheduled PRN Diphenhydramine HCl (Diphenhydramine HCl) 50 Mg Capsule, 50 MG PO QHS PRN for SLEEP, (Reported) Docusate Sodium (Stool Softener) 100 Mg Cap, 100 MG PO DAILY PRN for CONSTIPATION, (Reported) Allergies Coded Allergies: No Known Allergies (Unverified , 04/17/21) Past Medical History Medical History 1. History of DVT and PE 2. Protein C and protein S deficiency 3. Morbid obesity 4. Hypertension 5. Lipedema 6. Multivitamin deficiency 7. Depression 8. Anxiety 9. Intertrigo 10. Unconfirmed sleep apnea 11. Anemia 12. Arthritis 13. SLE Surgical History 1. Janet filter placed in 1997 2. Tonsillectomy and adenoidectomy in 1975 3. Gastric bypass in 2010 4. Cholecystectomy 2013 5. Right carpal tunnel release thousand 19 Family History Father: . Does not know father's past medical history. Notes that he had a history of aortic aneurysm Mother: . History of breast cancer which had metastasized to bone Social History * Smoker: current smoker Alcohol: occationally (Drinks a glass weekly) Drugs: denies A-FIB/CHADSVASC A-FIB History Current/History of A-Fib/PAF?: No Review of Systems Constitutional: Denies: Chills, Fever Eyes: Denies: Vision change ENT: Reports: Head Aches (From coughing), Sinus Congestion, Sore Throat (From coughing) Skin: Denies: Rash Pulmonary: Reports: Dyspnea, Cough (Generally dry but feels congested) Cardiovascular: Denies: Chest Pain Gastrointestinal: Reports: Diarrhea (Loose stools), Other Symptoms (Abdominal pain from coughing); Denies: Nausea Genitourinary: Denies: Dysuria Hematologic: Reports: Bruising (From blood thinner) Neurological: Reports: Other Symptoms (Paresthesias in hands from lupus) Psych: Denies: Anxiety, Depression Physical Examination General Exam: Positive: Alert, Cooperative Eye Exam: Positive: EOMI; Negative: Sclera icteric ENT Exam: Positive: Atraumatic Neck Exam: Positive: Supple Chest Exam: Positive: Rhonchi, Wheezing Heart Exam: Positive: Rate Normal, Regular Rhythm Abdomen Exam: Positive: Normal bowel sounds, Soft, Other (Obese); Negative: Tenderness Extremity Exam: Positive: Edema (Nonpitting edema) Neuro Exam: Positive: Normal Speech Psych Exam: Positive: Mental status NL, Mood NL Vital Signs Vital Signs Date Time Temp Pulse Resp B/P (MAP) Pulse Ox O2 Delivery O2 Flow Rate FiO2 04/17/21 13:20 90 16 04/17/21 12:07 98.5 191/92 (125) 87 Room Air Laboratory Data Labs 24H Laboratory Tests 2 04/17/21 12:41: Immature Granulocyte % (Auto) 0.7, Neutrophils (%) (Auto) 75.3H, Lymphocytes (%) (Auto) 17.3L, Monocytes (%) (Auto) 6.1, Eosinophils (%) (Auto) 0.3, Basophils (%) (Auto) 0.3, Neutrophils # (Auto) 4.5, Lymphocytes # (Auto) 1.0L, Monocytes # (Auto) 0.4, Eosinophils # (Auto) 0.0, Basophils # (Auto) 0.0, Nucleated Red Bl ood Cells % (auto) 0.0, Blood Gas Bicarbonate Standard 24.2, Venous Blood pH 7.403, Venous Blood Partial Pressure CO2 41.6, Venous Blood Partial Pressure O2 35.4, Venous Blood Total Carbon Dioxide 26.6, Venous Blood HCO3 25.4, Venous Blood Oxygen Saturation 70.4, Venous Blood Base Excess 0.5, Anion Gap 7L, Glomerular Filtration Rate > 60.0, Calcium Level 9.1, Total Bilirubin 0.4, Direct Bilirubin < 0.1, Aspartate Amino Transf (AST/SGOT) 57H, Alanine Aminotransferase (ALT/SGPT) 32, Alkaline Phosphatase 152H, Total Protein 7.1, Albumin 3.5, Albumin/Globulin Ratio 1.0L, Thyroid Stimulating Hormone (TSH) 0.925 04/17/21 13:20: SARS Antigen (LFIA) NEGATIVE 04/17/21 13:52: POC Troponin I (Misc) 0.01 CBC/BMP Laboratory Tests 04/17/21 12:41 Microbiology Microbiology 04/17/21 Respiratory [facility]) [facility] - Final, Complete Respiratory Syncytial Virus Assessment/Plan Mrs. Perez is a 51-year-old female with lupus and protein C/protein S deficiency who presents with hypoxia and found to have RSV infection. Most likely caught from family. Patient improved with Solu-Medrol in the ED. We will continue with steroids. Patient is also hypoxic, continue with supplemental oxygen. Plan / VTE VTE Prophylaxis Ordered?: Yes Plan Plan 1. Hypoxia secondary to RSV infection No signs of pneumonia on imaging Patient saturating at 87% at room air Supplemental oxygen Solu-Medrol and breathing treatments For chest congestion we will start Mucinex and Acapella For sore throat we will start Cepacol 2. Tobacco use disorder Patient declined nicotine patch Consider PFTs outpatient 3. Lupus Continue hydroxychloroquine Patient will be on steroids with Solu-Medrol consider prednisone 4. Protein C and protein S deficiency History of DVT and PEs in the past Continue warfarin Monitor INRs daily 5. Restless leg syndrome Continue pramipexole 6. Morbid obesity BMI 62.5 7. DVT prophylaxis Continue warfarin Disposition: Pending improvement in oxygen status EUSEBIO RICHARD DO Apr 17, 2021 16:24
[2021-04-17 16:37] VITALS: BP 159/79
--- NOTE | 2021-04-17 16:39 | ECGEPIP ---
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
[2021-04-17] MEDS: WARFARIN SOD 3MG TAB PO SCH (18:04)
[2021-04-17] MEDS: methylPREDNISolone 125MG 2ML VIAL IV SCH (19:51)
[2021-04-17] MEDS: guaiFENesin ER 600 MG TAB PO SCH (19:52)
[2021-04-17] MEDS: HYDROXYCHLOROQUINE 200 MG TAB PO SCH (19:52)
[2021-04-17] MEDS: PRAMIPEXOLE (MIRAPEX) 0.125 MG TAB PO SCH (19:52)
[2021-04-17] MEDS: traMADol 50 MG TAB PO PRN (19:53)
[2021-04-17] MEDS: IPRATROPIUM 0.5MG/ALBUTEROL 2.5MG INH SOL UD 3ML (DUONEB) NEB SCH (21:00)
[2021-04-17 22:00] VITALS: BP 160/80
[2021-04-17] MEDS: ACETAMINOPHEN TAB 650MG DOSE (2X325MG) PO PRN (23:01)
[2021-04-18] MEDS ORDERED: **NOTE PATIENT COMMENT** MISC XX ONE (02:00)
[2021-04-18] MEDS: IPRATROPIUM 0.5MG/ALBUTEROL 2.5MG INH SOL UD 3ML (DUONEB) NEB SCH ×4 (02:27→20:21)
[2021-04-18] MEDS: ACETAMINOPHEN TAB 650MG DOSE (2X325MG) PO PRN ×3 (03:49→20:55)
[2021-04-18 06:00] VITALS: BP 158/79
[2021-04-18 07:00] LABS: MEAN CORPUSCULAR HEMOGLOBIN 28.5 pg (27.0-33.0); MEAN CORPUSCULAR HGB CONC 31.8 g/dl (32.0-36.5); MEAN CORPUSCULAR VOLUME 89.6 fl (80.0-96.0); PLATELET COUNT, AUTOMATED 215 10^3/uL (150-450); RED BLOOD COUNT 4.24 10^6/uL (4.00-5.40); WHITE BLOOD COUNT 8.2 10^3/uL (4.0-10.0)
[2021-04-18 07:01] LABS: INR 2.98; PROTHROMBIN TIME 31.3 SECONDS (12.7-14.5)
[2021-04-18 07:03] LABS: HEMOGLOBIN 12.1 g/dl (12.0-15.5)
[2021-04-18 07:19] LABS: BLOOD UREA NITROGEN 10 MG/DL (7-18); CALCIUM LEVEL 8.9 MG/DL (8.5-10.1); CARBON DIOXIDE LEVEL 31 MEQ/L (21-32); CHLORIDE LEVEL 104 MEQ/L (98-107); CREATININE FOR GFR 0.71 MG/DL (0.55-1.30); GLOMERULAR FILTRATION RATE > 60.0 (>51); GLUCOSE, FASTING 151 MG/DL (70-100); POTASSIUM SERUM 4.7 MEQ/L (3.5-5.1); SODIUM LEVEL 141 MEQ/L (136-145)
[2021-04-18] MEDS: guaiFENesin ER 600 MG TAB PO SCH ×2 (08:20→20:55)
[2021-04-18] MEDS: CALCIUM/VITAMIN D 500 MG TAB PO SCH (08:20)
[2021-04-18] MEDS: FERROUS SULFATE 325MG TAB PO SCH (08:20)
[2021-04-18] MEDS: HYDROXYCHLOROQUINE 200 MG TAB PO SCH ×2 (08:20→20:55)
[2021-04-18] MEDS: MULTIVITAMINS/MINERALS THERAP 1 TAB PO SCH (08:20)
[2021-04-18] MEDS: methylPREDNISolone 125MG 2ML VIAL IV SCH ×2 (08:20→20:54)
--- NOTE | 2021-04-18 11:05 | REP ---
INDICATION: Right upper quadrant pain, history of cholecystectomy,BMI 63. COMPARISON: None. TECHNIQUE: Ultrasound evaluation of the right upper quadrant of the abdomen was performed. FINDINGS: The gallbladder is surgically absent. There is a complex area in the right upper quadrant with a swirled appearance demonstrating heterogeneous echogenicity and measuring approximately 17.0 x 12.1 x 6.0 cm. Possible bowel within a ventral wall hernia verses an intussusception. The right kidney measures 10.5 x 5.5 x 5.2 cm. IMPRESSION: Abnormal appearing masslike area in the right upper quadrant may be a ventral wall hernia containing bowel, other possibilities include an intussusception. Pertinent findings: Right upper quadrant mass The critical information above was relayed directly by me by telephone to EUSEBIO RICHARD on 04/18/2021 at 11:01 am with readback verification. <Electronically signed by Darrius Causey > 04/18/21 [id number]
[2021-04-18] MEDS ORDERED: ISOVUE-370 76% 100ML VIAL As Ordered ONE (11:30)
[2021-04-18] MEDS: GASTROGRAFIN SOLUTION 30ML PO SCH ×2 (11:50→12:19)
[2021-04-18 14:00] VITALS: BP 135/59
--- NOTE | 2021-04-18 15:10 | REP ---
INDICATION: Intussupion vs ventral hernia. IV and oral contrast. COMPARISON: None. TECHNIQUE: Imaging protocol: Computed tomography of the abdomen and pelvis with IV contrast. Contiguous 3 mm thick axial projection images were obtained through the abdomen and pelvis. 2D sagittal and coronal reconstructions were performed. Radiation optimization: All CT scans at this facility use at least one of these dose optimization techniques: automated exposure control; mA and/or kV adjustment per patient size (includes targeted exams where dose is matched to clinical indication); or iterative reconstruction. Contrast material: ISOVUE 370; Contrast volume: 100 ml; Contrast route: INTRAVENOUS (IV). FINDINGS: Heart and lung bases: There is linear scarring in the middle lobe of the right lung. There are no pleural effusions. The heart size is normal. There is no pericardial effusion. Liver: There is a 1.9 cm in diameter cyst in the left hepatic lobe. Gallbladder: Status post cholecystectomy. There is post cholecystectomy dilatation of the intra and extrahepatic biliary tree. Spleen: Normal. Pancreas: Fatty replaced. Adrenal glands: Normal. Kidneys/bladder: The kidneys enhance normally. The urinary bladder has a normal unenhanced appearance. Pelvic structures: The uterus and ovaries are unremarkable. There is no free fluid the pelvis. There are reactive inguinal lymph nodes bilaterally. There are few reactive external iliac lymph nodes bilaterally. GI tract: There is small hiatal hernia. Status post gastric sleeve surgery. There are few colonic diverticuli without evidence of acute inflammation. There is a normal appendix demonstrated. Abdominal wall and mesentery: There is diffuse hyperdense enlargement of the right rectus abdominus muscle extending from the origin at the right ribs to the insertion into the right pubic bone, consistent with intramuscular hemorrhage. There is a focal hyperdense mass at the mid portion of the muscle measuring 11.6 x 9.0 x 6.0 cm consistent with a hematoma. There are no abdominal wall defects. There is no mesenteric or retroperitoneal lymphadenopathy. Abdominal aorta and vascular structures: There is minimal calcific vascular disease of the abdominal aorta. There is an IVC filter in the lower portion of the IVC. More proximally in the IVC there are multiple metallic baldomero like structures which may be portions of a filter. Bony structures: There is mild levoscoliosis of the lumbar spine. The SI joints are normal. There is mild arthritis of both hips. IMPRESSION: 1. Diffuse enlargement of the right rectus abdominus muscle, consistent with intramuscular hemorrhage. There is a hematoma within the mid portion of the muscle. This corresponds to the abnormality seen at the recent ultrasound. 2. Other findings as noted. Findings were called to the patient's nurse, Mary, in the [facility], at 3 p.m. on 04/18/2021. <Electronically signed by Darrius Causey > 04/18/21 [id number]
[2021-04-18] MEDS: WARFARIN SOD 3MG TAB PO SCH (17:00)
--- NOTE | 2021-04-18 17:37 | IPNPDOC ---
Subjective Date Seen The patient was seen on 04/18/21. Subjective Chief Complaint/HPI Mrs. Perez is a 51-year-old female with lupus and protein C/protein S deficiency who presents with hypoxia. Patient was seen this morning. She felt better than yesterday. Denies any chest pain or dyspnea. She still has a right upper quadrant pain. Eventually ordered a CT of the abdomen pelvis. Demonstrates that there is a hematoma. Will use warm compresses. Objective Physical Examination General Exam: Positive: Alert, Cooperative Eye Exam: Positive: EOMI; Negative: Sclera icteric ENT Exam: Positive: Atraumatic Neck Exam: Positive: Supple Chest Exam: Positive: Diminished Heart Exam: Positive: Rate Normal, Regular Rhythm Abdomen Exam: Positive: Normal bowel sounds, Soft, Other (Obese); Negative: Tenderness Extremity Exam: Positive: Edema (Nonpitting edema) Neuro Exam: Positive: Normal Speech Psych Exam: Positive: Mental status NL, Mood NL Assessment /Plan Assessment Mrs. Perez is a 51-year-old female with lupus and protein C/protein S d eficiency who presents with hypoxia and found to have RSV infection. Most likely caught from family. Patient improved with Solu-Medrol in the ED. We will continue with steroids. Patient is also hypoxic, continue with supplemental oxygen. Otherwise, due to patient's protein C and protein S defic iency, will like to try to keep patient on warfarin. Plan/VTE VTE Prophylaxis Ordered?: Yes Plan 1. Hypoxia secondary to RSV infection No signs of pneumonia on imaging Patient saturating at 87% at room air Supplemental oxygen Solu-Medrol and breathing treatments For chest congestion we will start Mucinex and Acapella For sore throat we will start Cepacol 2. Tobacco use disorder Patient declined nicotine patch Consider PFTs outpatient 3. Lupus Continue hydroxychloroquine Patient will be on steroids with Solu-Medrol consider prednisone 4. Protein C and protein S deficiency History of DVT and PEs in the past Continue warfarin Monitor INRs daily 5. Restless leg syndrome Continue pramipexole 6. Morbid obesity BMI 62.5 7. DVT prophylaxis Continue warfarin Disposition: Pending improvement in oxygen status VS, I&O, 24H, Fishbone Vital Signs/I&O Vital Signs Date Time Temp Pulse Resp B/P (MAP) Pulse Ox O2 Delivery O2 Flow Rate FiO2 04/18/21 14:00 97.9 86 19 135/59 (84) 94 Nasal Cannula 5.0 I&O- Last 24 Hours up to 6 AM 04/18/21 06:00 Intake Total 2280 ml Output Total 0 ml Balance 2280 ml Laboratory Data 24H LABS Laboratory Tests 2 04/17/21 19:17: Troponin I High Sensitivity 21.0 04/18/21 06:25: Nucleated Red Blood Cells % (auto) 0.0, Prothrombin Time 31.3H, Prothromb Time International Ratio 2.98, Anion Gap 6L, Glomerular Filtration Rate > 60.0, Calcium Level 8.9 CBC/BMP Laboratory Tests 04/18/21 06:25 Microbiology Microbiology 04/17/21 Respiratory Virus Panel (PCR) ([facility]) - Final, Complete Respiratory Syncytial Virus EUSEBIO RICHARD DO Apr 18, 2021 17:37
[2021-04-18] MEDS: PRAMIPEXOLE (MIRAPEX) 0.125 MG TAB PO SCH (20:55)
[2021-04-18 22:00] VITALS: BP 146/71
[2021-04-19] MEDS: IPRATROPIUM 0.5MG/ALBUTEROL 2.5MG INH SOL UD 3ML (DUONEB) NEB SCH ×4 (02:33→20:24)
[2021-04-19] MEDS: ACETAMINOPHEN TAB 650MG DOSE (2X325MG) PO PRN ×3 (02:52→15:43)
[2021-04-19 05:53] VITALS: BP 133/71
[2021-04-19 08:11] LABS: HEMATOCRIT 38.3 % (36.0-47.0); MEAN CORPUSCULAR HEMOGLOBIN 28.5 pg (27.0-33.0); MEAN CORPUSCULAR HGB CONC 31.3 g/dl (32.0-36.5); PLATELET COUNT, AUTOMATED 255 10^3/uL (150-450); RED BLOOD COUNT 4.21 10^6/uL (4.00-5.40); WHITE BLOOD COUNT 10.1 10^3/uL (4.0-10.0)
[2021-04-19 08:23] LABS: INR 3.13; PROTHROMBIN TIME 32.5 SECONDS (12.7-14.5)
[2021-04-19 08:42] LABS: BLOOD UREA NITROGEN 11 MG/DL (7-18); CALCIUM LEVEL 9.7 MG/DL (8.5-10.1); CARBON DIOXIDE LEVEL 32 MEQ/L (21-32); CHLORIDE LEVEL 100 MEQ/L (98-107); CREATININE FOR GFR 0.68 MG/DL (0.55-1.30); GLOMERULAR FILTRATION RATE > 60.0 (>51); GLUCOSE, FASTING 120 MG/DL (70-100); POTASSIUM SERUM 5.1 MEQ/L (3.5-5.1); SODIUM LEVEL 137 MEQ/L (136-145)
[2021-04-19] MEDS: BENZONATATE 100MG CAPSULE PO SCH ×4 (09:00→20:36)
[2021-04-19] MEDS: methylPREDNISolone 125MG 2ML VIAL IV SCH ×2 (09:31→20:35)
[2021-04-19] MEDS: CALCIUM/VITAMIN D 500 MG TAB PO SCH (09:32)
[2021-04-19] MEDS: FERROUS SULFATE 325MG TAB PO SCH (09:32)
[2021-04-19] MEDS: MULTIVITAMINS/MINERALS THERAP 1 TAB PO SCH (09:32)
[2021-04-19] MEDS: HYDROXYCHLOROQUINE 200 MG TAB PO SCH ×2 (09:32→20:36)
[2021-04-19] MEDS: guaiFENesin ER 600 MG TAB PO SCH ×2 (09:32→20:36)
[2021-04-19] MEDS: traMADol 50 MG TAB PO PRN (12:42)
[2021-04-19 14:00] VITALS: BP 140/76
--- NOTE | 2021-04-19 16:07 | IPNPDOC ---
Subjective Date Seen The patient was seen on 04/19/21. Subjective Chief Complaint/HPI Mrs. Perez is a 51-year-old female with lupus and protein C/protein S deficiency who presents with hypoxia. Patient was seen in the morning. She denied any chest pain or dyspnea. Still has abdominal pain from the hematoma. Otherwise, she tells me she has nocturnal hypoxia and uses 2L at night. Objective Physical Examination General Exam: Positive: Alert, Cooperative Eye Exam: Positive: EOMI; Negative: Sclera icteric ENT Exam: Positive: Atraumatic Neck Exam: Positive: Supple Chest Exam: Positive: Diminished Heart Exam: Positive: Rate Normal, Regular Rhythm Abdomen Exam: Positive: Normal bowel sounds, Other (Obese, there is firmness in the upper abdomen); Negative: Tenderness Extremity Exam: Positive: Edema (Nonpitting edema) Neuro Exam: Positive: Normal Speech Psych Exam: Positive: Mental status NL, Mood NL Assessment /Plan Assessment Mrs. Perez is a 51-year-old female with lupus and protein C/protein S deficiency who presents with hypoxia and found to have RSV infection. Most likely caught from family. Patient improved with Solu-Medrol in the ED. We will continue with steroids. Patient is also hypoxic, continue with supplemental oxygen. Otherwise, due to patient's protein C and protein S deficiency, will like to try to keep patient on warfarin. Plan/VTE VTE Prophylaxis Ordered?: Yes Plan 1. Hypoxia secondary to RSV infection No signs of pneumonia on imaging Patient saturating at 87% at room air Supplemental oxygen Solu-Medrol and breathing treatments For chest congestion we will start Mucinex and Acapella For sore throat we will start Cepacol 2. Tobacco use disorder Patient declined nicotine patch Consider PFTs outpatient 3. Lupus Continue hydroxychloroquine 4. Protein C and protein S deficiency History of DVT and PEs in the past Continue warfarin Monitor INRs daily 5. Restless leg syndrome Continue pramipexole 6. Morbid obesity BMI 62.5 7. DVT prophylaxis Continue warfarin Disposition: Pending improvement in oxygen status VS, I&O, 24H, [facility] Vital Signs/I&O Vital Signs Date Time Temp Pulse Resp B/P (MAP) Pulse Ox O2 Delivery O2 Flow Rate FiO2 04/19/21 13:12 16 04/19/21 12:42 67 126/66 94 Room Air 04/19/21 05:53 97.4 4.0 I&O- Last 24 Hours up to 6 AM 04/19/21 05:59 Intake Total 2640 ml Output Total 700 ml Balance 1940 ml Laboratory Data 24H LABS Laboratory Tests 2 04/19/21 07:36: Nucleated Red Blood Cells % (auto) 0.0, Prothrombin Time 32.5H, Prothromb Time International Ratio 3.13, Anion Gap 5L, Glomerular Filtration Rate > 60.0, Calcium Level 9.7 CBC/BMP Laboratory Tests 04/19/21 07:36 Microbiology Microbiology 04/17/21 Respiratory Virus Panel (PCR) ([facility]) - Final, Complete Respiratory Syncytial Virus EUSEBIO RICHARD DO Apr 19, 2021 16:07
[2021-04-19] MEDS: WARFARIN SOD 3MG TAB PO SCH (17:24)
[2021-04-19] MEDS: PRAMIPEXOLE (MIRAPEX) 0.125 MG TAB PO SCH (20:36)
[2021-04-19 21:00] VITALS: BP 131/45
[2021-04-20] MEDS: traMADol 50 MG TAB PO PRN ×3 (00:14→14:58)
[2021-04-20] MEDS: IPRATROPIUM 0.5MG/ALBUTEROL 2.5MG INH SOL UD 3ML (DUONEB) NEB SCH ×3 (01:18→13:26)
[2021-04-20 05:55] VITALS: BP 131/61
[2021-04-20 06:27] LABS: HEMATOCRIT 34.4 % (36.0-47.0); HEMOGLOBIN 10.8 g/dl (12.0-15.5); MEAN CORPUSCULAR HEMOGLOBIN 28.3 pg (27.0-33.0); MEAN CORPUSCULAR HGB CONC 31.4 g/dl (32.0-36.5); MEAN CORPUSCULAR VOLUME 90.1 fl (80.0-96.0); PLATELET COUNT, AUTOMATED 225 10^3/uL (150-450); RED BLOOD COUNT 3.82 10^6/uL (4.00-5.40); WHITE BLOOD COUNT 8.9 10^3/uL (4.0-10.0)
[2021-04-20 06:47] LABS: INR 3.45
[2021-04-20 06:50] LABS: BLOOD UREA NITROGEN 12 MG/DL (7-18); CALCIUM LEVEL 8.9 MG/DL (8.5-10.1); CARBON DIOXIDE LEVEL 31 MEQ/L (21-32); CHLORIDE LEVEL 101 MEQ/L (98-107); CREATININE FOR GFR 0.79 MG/DL (0.55-1.30); GLOMERULAR FILTRATION RATE > 60.0 (>51); GLUCOSE, FASTING 141 MG/DL (70-100); POTASSIUM SERUM 4.8 MEQ/L (3.5-5.1); SODIUM LEVEL 137 MEQ/L (136-145)
[2021-04-20] MEDS: ACETAMINOPHEN TAB 650MG DOSE (2X325MG) PO PRN (07:27)
[2021-04-20] MEDS: HYDROXYCHLOROQUINE 200 MG TAB PO SCH (09:35)
[2021-04-20] MEDS: guaiFENesin ER 600 MG TAB PO SCH (09:35)
[2021-04-20] MEDS: methylPREDNISolone 125MG 2ML VIAL IV SCH (09:35)
[2021-04-20] MEDS: MULTIVITAMINS/MINERALS THERAP 1 TAB PO SCH (09:35)
[2021-04-20] MEDS: FERROUS SULFATE 325MG TAB PO SCH (09:35)
[2021-04-20] MEDS: CALCIUM/VITAMIN D 500 MG TAB PO SCH (09:35)
[2021-04-20] MEDS: BENZONATATE 100MG CAPSULE PO SCH (09:35)
[2021-04-20] MEDS ORDERED: MUCI600T31 PO (13:04)
[2021-04-20] MEDS ORDERED: ACET1TAB55 PO (13:04)
[2021-04-20] MEDS ORDERED: TRAM50TA2 PO (13:04)
[2021-04-20 14:00] VITALS: BP 135/54
--- NOTE | 2021-04-20 14:52 | DS.PDOC ---
Discharge Summary General Date of Admission Apr 17, 2021 at 14:47 Date of Discharge 04/20/2021 Attending Physician: NAEL FARMER MD Discharge Summary PROCEDURES PERFORMED DURING STAY: None. ADMITTING DIAGNOSES: Acute hypoxemic respiratory failure RSV infection DISCHARGE DIAGNOSES: Acute hypoxemic respiratory failure RSV infection Tobacco use disorder History of DVT and PE, on warfarin and s/p remote IVC filter Spontaneous right rectus abdominus hematoma Protein C and protein S deficiency Morbid obesity Hypertension Lipedema Multivitamin deficiency Depression Anxiety Intertrigo Nocturnal shallow breathing noted with associated nocturnal hypoxemia on sleep study, therefore on Nocturnal 2L at night Anemia Arthritis SLE COMPLICATIONS/CHIEF COMPLAINT: Hypoxia,Rsv. HISTORY OF PRESENT ILLNESS: 51-year-old W with lupus and protein C/protein S deficiency and history of VTE s/p remote IVC filter, on warfarin who presented with SOB, congestion, rhinorrhea, generalized illness and noted hypoxemia. The Monday prior to [facility], patient's stepdaughter felt unwell. She passed on to patient's . They both went to urgent care prior to Thanks and they tested negative for Covid. During this time, patient started to feel unwell. She had rhinorrhea and diarrhea. She felt congested and had coughing. Her cough was generally dry, but sometimes brings up sputum. 2d prior to presentation, she started to feel more short of breath and decided to come to the ED. HOSPITAL COURSE: While in the ED she was hypoxic at room air at 87% and required oxygen but was otherwise afebrile and normotensive. Chest x-ray was negative for acute disease and she had no leukocytosis. Covid test was negative and she was found to have RSV on respiratory panel. She was given Solu-Medrol 125 and duo nebs for a lot of rhonchi and some wheezing and was admitted for acute hypoxemic respiratory failure 2/2 RSV. Initially she required 4L NC and she was continued on supportive treatment and is now being discharged home still requiring 2L NC at rest while awake and I suspect will require it for a few more days and will eventually wean off daytime use as RSV infection resolves. Of note, I have referred her to hematology given her history of VTEs on warfarin with recent patient confirmed history of spontaneous non traumatic hematomas while on warfarin. 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 We also spent time discussing the deleterious health effects of smoking especially given her medical history and she will consider quitting and discuss it with her PCP. DISCHARGE MEDICATIONS: Please see below. ALLERGIES: Please see below. PHYSICAL EXAMINATION ON DISCHARGE: VITAL SIGNS: Please see below. General: Alert, Cooperative, NAD Eyes: EOMI, anicteric ENT: Atraumatic Neck: Supple Chest: Diminished breath sounds throughout. No naye crackles, no wheezing at this time Heart: Rate Normal, Regular Rhythm, no noted murmurs Abdomen: Normal bowel sounds, Obese, firmness in the upper abdomen as previously noted. Nontender at this time Extremities: Nonpitting edema, otherwise WWP Neuro: Normal Speech Psych: AOx3 LABORATORY DATA: Please see below. IMAGING: CT A/P: Heart and lung bases: There is linear scarring in the middle lobe of the right lung. There are no pleural effusions. The heart size is normal. There is no pe ricardial effusion. Liver: There is a 1.9 cm in diameter cyst in the left hepatic lobe. Gallbladder: Status post cholecystectomy. There is post cholecystectomy dilatation of the intra and extrahepatic biliary tree. Spleen: Normal. Pancreas: Fatty replaced. Adrenal glands: Normal. Kidneys/bladder: The kidneys enhance normally. The urinary bladder has a normal unenhanced appearance. Pelvic structures: The uterus and ovaries are unremarkable. There is no free fluid the pelvis. There are reactive inguinal lymph nodes bilaterally. There are few reactive external iliac lymph nodes bilaterally. GI tract: There is small hiatal hernia. Status post gastric sleeve surgery. There are few colonic diverticuli without evidence of acute inflammation. There is a normal appendix demonstrated. Abdominal wall and mesentery: There is diffuse hyperdense enlargement of the right rectus abdominus muscle extending from the origin at the right ribs to the insertion into the right pubic bone, consistent with intramuscular hemorrhage. There is a focal hyperdense mass at the mid portion of the muscle measuring 11.6 x 9.0 x 6.0 cm consistent with a hematoma. There are no abdominal wall defects. There is no mesenteric or retroperitoneal lymphadenopathy. Abdominal aorta and vascular structures: There is minimal calcific vascular disease of the abdominal aorta. There is an IVC filter in the lower portion of the IVC. More proximally in the IVC there are multiple metallic baldomero like structures which may be portions of a filter. Bony structures: There is mild levoscoliosis of the lumbar spine. The SI joints are normal. There is mild arthritis of both hips. IMPRESSION: 1. Diffuse enlargement of the right rectus abdominus muscle, consistent with intramuscular hemorrhage. There is a hematoma within the mid portion of the muscle. This corresponds to the abnormality seen at the recent ultrasound. 2. Other findings as noted. Abdominal US: The gallbladder is surgically absent. There is a complex area in the right upper quadrant with a swirled appearance demonstrating heterogeneous echogenicity and measuring approximately 17.0 x 12.1 x 6.0 cm. Possible bowel within a ventral wall hernia verses an intussusception. The right kidney measures 10.5 x 5.5 x 5.2 cm. IMPRESSION: Abnormal appearing masslike area in the right upper quadrant may be a ventral wall hernia containing bowel, other possibilities include an intussusception. CXR: The right hemidiaphragm is slightly elevated unchanged. EKG monitoring electrodes are present. The heart is not enlarged. Pleural angles no infiltrate is visible in the lung pfeiffer. Cardiomediastinal silhouette is unchanged. There are surgical clips in the soft tissues of the neck on the right. Are sharp. IMPRESSION: No active disease. PROGNOSIS: Good ACTIVITY: As tolerated DIET: regular DISCHARGE PLAN: Home with PCP within 7d and hematology referral DISPOSITION: Home DISCHARGE INSTRUCTIONS: Home with PCP within 7d and hematology referral ITEMS TO FOLLOWUP ON ON OUTPATIENT: RSV URI resolution Acute hypoxemic respiratory failure resolution Quitting smoking Hematology referral DISCHARGE CONDITION: Stable TIME SPENT ON DISCHARGE: 45 minutes. Vital Signs/I&Os Vital Signs Date Time Temp Pulse Resp B/P (MAP) Pulse Ox O2 Delivery O2 Flow Rate FiO2 04/20/21 13:00 93 Nasal Cannula 04/20/21 12:30 2.0 04/20/21 06:20 18 04/20/21 05:55 96.5 61 131/61 (84) I&O- Last 24 Hours up to 6 AM 04/20/21 05:59 Intake Total 1310 ml Output Total 2000 ml Balance -690 ml Laboratory Data Labs 24H Laboratory Tests 2 04/20/21 06:02: Nucleated Red Blood Cells % (auto) 0.0, Prothrombin Time 35.0H, Prothromb Time International Ratio 3.45, Anion Gap 5L, Glomerular Filtration Rate > 60.0, Calcium Level 8.9 CBC/BMP Laboratory Tests 04/20/21 06:02 Microbiology Microbiology 04/17/21 Respiratory Virus Panel (PCR) ([facility]) - Final, Complete Respiratory Syncytial Virus Discharge Medications Scheduled Calcium/Vitamin D (Calcium 500-Vit D3 200 Tablet) 1 Each Tablet, 500 MG PO DAILY, (Reported) Cholecalciferol (Vitamin D3) (Vitamin D3) 125 Mcg Tablet, 125 MCG PO DAILY, (Reported) Ferrous Sulfate (Ferrous Sulfate) 325 Mg Tablet, 325 MG PO DAILY, (Reported) Guaifenesin (Mucinex) 600 Mg Tab.er.12h, 1,200 MG PO BID Hydroxychloroquine Sulfate (Hydroxychloroquine Sulfate) 200 Mg Tablet, 200 MG PO BID, (Reported) Multivitamin (Multivitamins) 1 Each Tablet, 1 TAB PO DAILY, (Reported) Pramipexole Di-HCl (Mirapex) 0.125 Mg Tablet, 0.125 MG PO QHS, (Reported) Prednisone (Prednisone) 10 Mg Tab, 5 MG PO DAILY, (Reported) TAKE WITH 3 1MG TABS. TOTAL OF 8MG Warfarin Sodium (Warfarin Sodium) 3 Mg Tablet, 3 MG PO 5XW, (Reported) MON,MON,,MON,SUN Warfarin Sodium (Warfarin Sodium) 2 Mg Tablet, 4 MG PO 2XW, (Reported) , MON Scheduled PRN Acetaminophen (Acetaminophen) 325 Mg Tablet, 650 MG PO Q4HP PRN for MILD PAIN or TEMP > 101 Diphenhydramine HCl (Diphenhydramine HCl) 50 Mg Capsule, 50 MG PO QHS PRN for SLEEP, (Reported) Docusate Sodium (Stool Softener) 100 Mg Cap, 100 MG PO DAILY PRN for CONSTIPATION, (Reported) Tramadol HCl (Tramadol HCl) 50 Mg Tablet, 50 MG PO Q6HP PRN for MODERATE PAIN (PS 5-7) Allergies Coded Allergies: No Known Allergies (Unverified , 04/17/21) NAEL FARMER MD Apr 20, 2021 14:52
[2021-04-20] MEDS ORDERED: WARFARIN SOD 4MG TAB PO SCH (17:00)
== END 2021-04-20 15:15 | disposition home or self-care (01) | DRG 152 ==
LOC: M ED 12:07 → M ED INP 14:47 → ENRESERV 15:15 → M MSPAV 16:34
PROVIDERS: ADMIT Internal Medicine; ATTEND Internal Medicine
DX: J06.9 Acute upper respiratory infection, unspecified (principal); J96.01 Acute respiratory failure with hypoxia; D68.59 Other primary thrombophilia; Z68.44 Body mass index [BMI] 60.0-69.9, adult; M32.9 Systemic lupus erythematosus, unspecified; E66.01 Morbid (severe) obesity due to excess calories; I10 Essential (primary) hypertension; M79.81 Nontraumatic hematoma of soft tissue; F17.200 Nicotine dependence, unspecified, uncomplicated; F41.9 Anxiety disorder, unspecified; F32.9 Major depressive disorder, single episode, unspecified; M19.90 Unspecified osteoarthritis, unspecified site; Z86.718 Personal history of other venous thrombosis and embolism; Z86.711 Personal history of pulmonary embolism; Z79.01 Long term (current) use of anticoagulants; B97.4 Respiratory syncytial virus as the cause of diseases classified elsewhere; Z79.899 Other long term (current) drug therapy; G25.81 Restless legs syndrome

== ENCOUNTER → 2021-08-16 | Outpatient (REF) | payer MEDICARE, OTHER ==
[~2021-08-16] MED LIST changes: +ACET1TAB55 PO; +CALCD50TA PO; +DIPH50CA PO; +FERR1TAB8 PO; +HYDR200T3 PO; +LOVE0.4I2 SC; +MIRA0.12 PO; +MUCI600T31 PO; +MULT-40 PO; +NATU1TAB5 PO; +NYST10OI; +TRAM50TA2 PO; +WARF-20 PO; +WARF-58 PO; +WARF4TAB51 PO; +ZINC1TAB2 PO
[2021-08-16 18:52] LABS: BASO % 0.4 % (0.0-1.0); EOS # 0.1 10^3/uL (0.0-0.5); HEMATOCRIT 44.6 % (36.0-47.0); HEMOGLOBIN 14.3 g/dl (12.0-15.5); LYMPH # 1.4 10^3/uL (1.5-5.0); LYMPH % 15.4 % (24.0-44.0); MEAN CORPUSCULAR HEMOGLOBIN 29.5 pg (27.0-33.0); MEAN CORPUSCULAR HGB CONC 32.1 g/dl (32.0-36.5); MONO # 0.5 10^3/uL (0.0-0.8); MONO % 4.9 % (2.0-8.0); NEUTROPHILS # 7.2 10^3/uL (1.5-8.5); NEUTROPHILS % 77.3 % (36.0-66.0); PLATELET COUNT, AUTOMATED 354 10^3/uL (150-450); RED BLOOD COUNT 4.85 10^6/uL (4.00-5.40); WHITE BLOOD COUNT 9.3 10^3/uL (4.0-10.0)
[2021-08-16 19:04] LABS: TOTAL PROTEIN,RANDOM URINE 26.4 MG/DL (0.0-12.0)
[2021-08-16 19:44] LABS: ALBUMIN 3.5 GM/DL (3.2-5.2); ALT/SGPT 24 U/L (12-78); BILIRUBIN,DIRECT 0.1 MG/DL (0.0-0.2); BILIRUBIN,TOTAL 0.3 MG/DL (0.2-1.0); BLOOD UREA NITROGEN 11 MG/DL (7-18); C REACTIVE PROTEIN QUANTITATIV 4.92 MG/DL (0.00-0.30); CALCIUM LEVEL 9.5 MG/DL (8.5-10.1); CARBON DIOXIDE LEVEL 27 MEQ/L (21-32); CHLORIDE LEVEL 107 MEQ/L (98-107); COMPLEMENT C3 188 MG/DL (90-180); COMPLEMENT C4 29 MG/DL (10-40); CREATININE FOR GFR 0.82 MG/DL (0.55-1.30); GLOMERULAR FILTRATION RATE > 60.0 (>51); GLUCOSE, FASTING 108 MG/DL (70-100); IRON (FE) 34 UG/DL (50-170); MAGNESIUM LEVEL 2.3 MG/DL (1.8-2.4); POTASSIUM SERUM 4.2 MEQ/L (3.5-5.1); SODIUM LEVEL 141 MEQ/L (136-145); TOTAL PROTEIN 7.5 GM/DL (6.4-8.2)
[2021-08-16 19:55] LABS: ERYTHROCYTE SEDIMENTATION RATE 49 mm/hr (0-30)
[2021-08-16 20:01] LABS: TOTAL 25(OH) VITAMIN D 46.1 NG/ML (30.0-100.0)
[2021-08-25 14:09] LABS: ANTI DS-DNA AB Negative (Negative); COMPLEMENT TOTAL (CH50) > 60 U/mL (>41); G6PD2 4.79 x10E6/uL (3.77-5.28)
== END ==
LOC: M SFHCRHEU 14:37
PROVIDERS: ATTEND Internal Medicine
DX: M32.19 Other organ or system involvement in systemic lupus erythematosus (principal); E61.1 Iron deficiency; Z79.899 Other long term (current) drug therapy

== ENCOUNTER → 2021-11-17 | Outpatient (REF) | payer MEDICARE, OTHER ==
[~2021-11-17] MED LIST changes: +ENOX30IN3 SC; +PRED5TA PO
[2021-11-17 13:07] LABS: BASO % 0.5 % (0.0-1.0); EOS # 0.1 10^3/uL (0.0-0.5); EOS % 1.8 % (0.0-3.0); HEMATOCRIT 46.5 % (36.0-47.0); HEMOGLOBIN 14.6 g/dl (12.0-15.5); LYMPH # 1.4 10^3/uL (1.5-5.0); MEAN CORPUSCULAR HEMOGLOBIN 27.9 pg (27.0-33.0); MEAN CORPUSCULAR HGB CONC 31.4 g/dl (32.0-36.5); MEAN CORPUSCULAR VOLUME 88.7 fl (80.0-96.0); MONO # 0.5 10^3/uL (0.0-0.8); MONO % 6.4 % (2.0-8.0); NEUTROPHILS # 5.6 10^3/uL (1.5-8.5); PLATELET COUNT, AUTOMATED 200 10^3/uL (150-450); RED BLOOD COUNT 5.24 10^6/uL (4.00-5.40); WHITE BLOOD COUNT 7.7 10^3/uL (4.0-10.0)
[2021-11-17 13:27] LABS: ERYTHROCYTE SEDIMENTATION RATE 11 mm/hr (0-30)
[2021-11-17 13:56] LABS: ALBUMIN 3.8 GM/DL (3.2-5.2); ALT/SGPT 23 U/L (12-78); BILIRUBIN,TOTAL 0.4 MG/DL (0.2-1.0); BLOOD UREA NITROGEN 15 MG/DL (7-18); C REACTIVE PROTEIN QUANTITATIV 1.28 MG/DL (0.00-0.30); CALCIUM LEVEL 9.7 MG/DL (8.5-10.1); CARBON DIOXIDE LEVEL 29 MEQ/L (21-32); CHLORIDE LEVEL 105 MEQ/L (98-107); CREATININE FOR GFR 0.76 MG/DL (0.55-1.30); GLOMERULAR FILTRATION RATE > 60.0 (>51); GLUCOSE, FASTING 85 MG/DL (70-100); SODIUM LEVEL 138 MEQ/L (136-145); TOTAL PROTEIN 6.7 GM/DL (6.4-8.2)
== END ==
LOC: M SFHCRHEU 09:15
PROVIDERS: ATTEND Internal Medicine
DX: M32.19 Other organ or system involvement in systemic lupus erythematosus (principal)

== ENCOUNTER → 2021-12-15 | Outpatient (REF) | payer MEDICARE, OTHER ==
[2021-12-15 12:44] LABS: BASO % 0.7 % (0.0-1.0); EOS % 3.8 % (0.0-3.0); HEMATOCRIT 45.1 % (36.0-47.0); HEMOGLOBIN 14.1 g/dl (12.0-15.5); LYMPH % 22.5 % (24.0-44.0); MEAN CORPUSCULAR HEMOGLOBIN 28.7 pg (27.0-33.0); MEAN CORPUSCULAR HGB CONC 31.3 g/dl (32.0-36.5); MEAN CORPUSCULAR VOLUME 91.9 fl (80.0-96.0); MONO % 7.8 % (2.0-8.0); NEUTROPHILS # 3.8 10^3/uL (1.5-8.5); NEUTROPHILS % 64.9 % (36.0-66.0); PLATELET COUNT, AUTOMATED 183 10^3/uL (150-450); RED BLOOD COUNT 4.91 10^6/uL (4.00-5.40); WHITE BLOOD COUNT 5.8 10^3/uL (4.0-10.0)
[2021-12-15 12:45] LABS: EOS # 0.2 10^3/uL (0.0-0.5); LYMPH # 1.3 10^3/uL (1.5-5.0); MONO # 0.5 10^3/uL (0.0-0.8)
[2021-12-15 13:17] LABS: ERYTHROCYTE SEDIMENTATION RATE 10 mm/hr (0-30)
[2021-12-15 14:45] LABS: ALBUMIN 3.5 GM/DL (3.2-5.2); ALT/SGPT 20 U/L (12-78); BILIRUBIN,DIRECT < 0.1 MG/DL (0.0-0.2); BILIRUBIN,TOTAL 0.3 MG/DL (0.2-1.0); BLOOD UREA NITROGEN 12 MG/DL (7-18); C REACTIVE PROTEIN QUANTITATIV 1.13 MG/DL (0.00-0.30); CALCIUM LEVEL 9.2 MG/DL (8.5-10.1); CARBON DIOXIDE LEVEL 27 MEQ/L (21-32); CHLORIDE LEVEL 108 MEQ/L (98-107); CREATININE FOR GFR 0.84 MG/DL (0.55-1.30); GLOMERULAR FILTRATION RATE > 60.0 (>51); GLUCOSE, FASTING 94 MG/DL (70-100); SODIUM LEVEL 141 MEQ/L (136-145); TOTAL PROTEIN 6.4 GM/DL (6.4-8.2)
== END ==
LOC: M SFHCRHEU 10:51
PROVIDERS: ATTEND Internal Medicine
DX: M32.19 Other organ or system involvement in systemic lupus erythematosus (principal)

== ENCOUNTER → 2022-01-11 | Outpatient (REF) | payer MEDICARE, OTHER ==
[2022-01-11 16:37] LABS: BASO % 0.4 % (0.0-1.0); EOS # 0.2 10^3/uL (0.0-0.5); EOS % 2.5 % (0.0-3.0); HEMATOCRIT 46.2 % (36.0-47.0); HEMOGLOBIN 14.5 g/dl (12.0-15.5); LYMPH # 1.5 10^3/uL (1.5-5.0); LYMPH % 22.4 % (24.0-44.0); MEAN CORPUSCULAR HEMOGLOBIN 28.8 pg (27.0-33.0); MEAN CORPUSCULAR HGB CONC 31.4 g/dl (32.0-36.5); MEAN CORPUSCULAR VOLUME 91.8 fl (80.0-96.0); MONO # 0.5 10^3/uL (0.0-0.8); NEUTROPHILS # 4.5 10^3/uL (1.5-8.5); NEUTROPHILS % 67.6 % (36.0-66.0); PLATELET COUNT, AUTOMATED 201 10^3/uL (150-450); RED BLOOD COUNT 5.03 10^6/uL (4.00-5.40); WHITE BLOOD COUNT 6.7 10^3/uL (4.0-10.0)
[2022-01-11 17:06] LABS: ALBUMIN 3.8 GM/DL (3.2-5.2); ALT/SGPT 19 U/L (12-78); BILIRUBIN,DIRECT 0.1 MG/DL (0.0-0.2); BILIRUBIN,TOTAL 0.4 MG/DL (0.2-1.0); BLOOD UREA NITROGEN 12 MG/DL (7-18); C REACTIVE PROTEIN QUANTITATIV 0.87 MG/DL (0.00-0.30); CALCIUM LEVEL 9.8 MG/DL (8.5-10.1); CARBON DIOXIDE LEVEL 27 MEQ/L (21-32); CHLORIDE LEVEL 107 MEQ/L (98-107); CREATININE FOR GFR 0.76 MG/DL (0.55-1.30); ERYTHROCYTE SEDIMENTATION RATE 12 mm/hr (0-30); GLOMERULAR FILTRATION RATE > 60.0 (>51); GLUCOSE, FASTING 86 MG/DL (70-100); POTASSIUM SERUM 4.7 MEQ/L (3.5-5.1); SODIUM LEVEL 140 MEQ/L (136-145); TOTAL PROTEIN 7.2 GM/DL (6.4-8.2)
== END ==
LOC: M SFHCRHEU 10:41
PROVIDERS: ATTEND Internal Medicine
DX: M32.19 Other organ or system involvement in systemic lupus erythematosus (principal)

== ENCOUNTER → 2022-02-10 | Outpatient (REF) | payer MEDICARE, OTHER | LOC: M SFHCRHEU 10:45 | PROVIDERS: ATTEND Internal Medicine | DX: Z53.9 Procedure and treatment not carried out, unspecified reason (principal) ==

== ENCOUNTER → 2022-02-16 | Outpatient (REF) | payer MEDICARE, OTHER ==
[2022-02-16 12:42] LABS: BASO % 0.5 % (0.0-1.0); EOS # 0.2 10^3/uL (0.0-0.5); EOS % 2.9 % (0.0-3.0); HEMATOCRIT 45.6 % (36.0-47.0); LYMPH # 1.5 10^3/uL (1.5-5.0); LYMPH % 22.3 % (24.0-44.0); MEAN CORPUSCULAR HEMOGLOBIN 28.8 pg (27.0-33.0); MEAN CORPUSCULAR HGB CONC 30.7 g/dl (32.0-36.5); MEAN CORPUSCULAR VOLUME 93.8 fl (80.0-96.0); MONO # 0.4 10^3/uL (0.0-0.8); MONO % 6.8 % (2.0-8.0); NEUTROPHILS # 4.4 10^3/uL (1.5-8.5); NEUTROPHILS % 67.2 % (36.0-66.0); PLATELET COUNT, AUTOMATED 203 10^3/uL (150-450); RED BLOOD COUNT 4.86 10^6/uL (4.00-5.40); WHITE BLOOD COUNT 6.5 10^3/uL (4.0-10.0)
[2022-02-16 13:33] LABS: ERYTHROCYTE SEDIMENTATION RATE 14 mm/hr (0-30)
[2022-02-16 15:19] LABS: ALBUMIN 3.8 GM/DL (3.2-5.2); ALT/SGPT 22 U/L (12-78); BILIRUBIN,DIRECT 0.1 MG/DL (0.0-0.2); BILIRUBIN,TOTAL 0.4 MG/DL (0.2-1.0); BLOOD UREA NITROGEN 15 MG/DL (7-18); C REACTIVE PROTEIN QUANTITATIV 0.95 MG/DL (0.00-0.30); CALCIUM LEVEL 9.9 MG/DL (8.5-10.1); CARBON DIOXIDE LEVEL 30 MEQ/L (21-32); CHLORIDE LEVEL 106 MEQ/L (98-107); CREATININE FOR GFR 0.77 MG/DL (0.55-1.30); GLOMERULAR FILTRATION RATE > 60.0 (>51); GLUCOSE, FASTING 106 MG/DL (70-100); POTASSIUM SERUM 4.6 MEQ/L (3.5-5.1); SODIUM LEVEL 139 MEQ/L (136-145); TOTAL PROTEIN 6.8 GM/DL (6.4-8.2)
== END ==
LOC: M SFHCRHEU 10:57
PROVIDERS: ATTEND Internal Medicine
DX: M32.19 Other organ or system involvement in systemic lupus erythematosus (principal)

== ENCOUNTER → 2022-03-24 | Outpatient (REF) | payer MEDICARE, OTHER ==
[2022-03-24 13:14] LABS: BASO # 0.1 10^3/uL (0.0-0.2); BASO % 0.7 % (0.0-1.0); EOS # 0.2 10^3/uL (0.0-0.5); EOS % 2.3 % (0.0-3.0); HEMOGLOBIN 14.1 g/dl (12.0-15.5); LYMPH # 1.3 10^3/uL (1.5-5.0); LYMPH % 18.8 % (24.0-44.0); MEAN CORPUSCULAR HEMOGLOBIN 29.3 pg (27.0-33.0); MEAN CORPUSCULAR HGB CONC 31.3 g/dl (32.0-36.5); MEAN CORPUSCULAR VOLUME 93.6 fl (80.0-96.0); MONO # 0.5 10^3/uL (0.0-0.8); MONO % 6.9 % (2.0-8.0); NEUTROPHILS # 4.9 10^3/uL (1.5-8.5); PLATELET COUNT, AUTOMATED 192 10^3/uL (150-450); RED BLOOD COUNT 4.81 10^6/uL (4.00-5.40); WHITE BLOOD COUNT 6.9 10^3/uL (4.0-10.0)
[2022-03-24 13:36] LABS: ALBUMIN 3.7 GM/DL (3.2-5.2); ALT/SGPT 23 U/L (12-78); BILIRUBIN,DIRECT < 0.1 MG/DL (0.0-0.2); BILIRUBIN,TOTAL 0.3 MG/DL (0.2-1.0); BLOOD UREA NITROGEN 12 MG/DL (7-18); C REACTIVE PROTEIN QUANTITATIV 0.92 MG/DL (0.00-0.30); CALCIUM LEVEL 9.7 MG/DL (8.5-10.1); CARBON DIOXIDE LEVEL 28 MEQ/L (21-32); CHLORIDE LEVEL 107 MEQ/L (98-107); CREATININE FOR GFR 0.74 MG/DL (0.55-1.30); GLOMERULAR FILTRATION RATE > 60.0 (>51); GLUCOSE, FASTING 95 MG/DL (70-100); POTASSIUM SERUM 4.7 MEQ/L (3.5-5.1); SODIUM LEVEL 141 MEQ/L (136-145); TOTAL PROTEIN 6.5 GM/DL (6.4-8.2)
[2022-03-24 15:36] LABS: ERYTHROCYTE SEDIMENTATION RATE 13 mm/hr (0-30)
== END ==
LOC: M SFHCRHEU 10:28
PROVIDERS: ATTEND Internal Medicine
DX: M32.19 Other organ or system involvement in systemic lupus erythematosus (principal)

== ENCOUNTER → 2022-04-26 | Outpatient (REF) | payer MEDICARE, OTHER ==
[2022-04-26 17:00] LABS: BASO # 0.1 10^3/uL (0.0-0.2); BASO % 0.7 % (0.0-1.0); EOS # 0.1 10^3/uL (0.0-0.5); HEMATOCRIT 44.9 % (36.0-47.0); HEMOGLOBIN 14.2 g/dl (12.0-15.5); LYMPH # 1.7 10^3/uL (1.5-5.0); LYMPH % 23.5 % (24.0-44.0); MEAN CORPUSCULAR HEMOGLOBIN 29.5 pg (27.0-33.0); MEAN CORPUSCULAR HGB CONC 31.6 g/dl (32.0-36.5); MEAN CORPUSCULAR VOLUME 93.3 fl (80.0-96.0); MONO # 0.4 10^3/uL (0.0-0.8); MONO % 5.8 % (2.0-8.0); NEUTROPHILS # 4.7 10^3/uL (1.5-8.5); NEUTROPHILS % 67.6 % (36.0-66.0); PLATELET COUNT, AUTOMATED 198 10^3/uL (150-450); RED BLOOD COUNT 4.81 10^6/uL (4.00-5.40)
[2022-04-26 17:22] LABS: C REACTIVE PROTEIN QUANTITATIV < 0.40 MG/DL (<1.0)
[2022-04-26 17:23] LABS: ALBUMIN 3.5 G/DL (3.2-5.2); ALKALINE PHOSPHATASE 121 U/L (46-116); ALT/SGPT 19 U/L (7.0-40); AST/SGOT 25 U/L (<34); BILIRUBIN,DIRECT < 0.1 MG/DL (<0.4); BILIRUBIN,TOTAL 0.2 MG/DL (0.3-1.2); BLOOD UREA NITROGEN 13 MG/DL (9-23); CALCIUM LEVEL 9.6 MG/DL (8.5-10.1); CARBON DIOXIDE LEVEL 28 MMOL/L (20-31); CHLORIDE LEVEL 109 MMOL/L (98-107); CREATININE FOR GFR 0.74 MG/DL (0.55-1.30); GLOMERULAR FILTRATION RATE > 60.0 (>51); GLUCOSE, FASTING 100 MG/DL (60-100); POTASSIUM SERUM 4.8 MMOL/L (3.5-5.1); SODIUM LEVEL 143 MMOL/L (136-145); TOTAL PROTEIN 6.4 G/DL (5.7-8.2)
[2022-04-26 17:27] LABS: ERYTHROCYTE SEDIMENTATION RATE 9 mm/hr (0-30)
== END ==
LOC: M SFHCRHEU 13:49
PROVIDERS: ATTEND Internal Medicine
DX: M32.19 Other organ or system involvement in systemic lupus erythematosus (principal)

== ENCOUNTER → 2022-06-22 | Outpatient (REF) | payer MEDICARE, OTHER ==
[2022-06-22 16:41] LABS: BASO # 0.1 10^3/uL (0.0-0.2); BASO % 0.7 % (0.0-1.0); EOS # 0.2 10^3/uL (0.0-0.5); EOS % 2.7 % (0.0-3.0); HEMATOCRIT 43.7 % (36.0-47.0); HEMOGLOBIN 13.9 g/dl (12.0-15.5); LYMPH # 1.9 10^3/uL (1.5-5.0); LYMPH % 27.9 % (24.0-44.0); MEAN CORPUSCULAR HEMOGLOBIN 29.6 pg (27.0-33.0); MEAN CORPUSCULAR HGB CONC 31.8 g/dl (32.0-36.5); MONO # 0.4 10^3/uL (0.0-0.8); MONO % 5.8 % (2.0-8.0); NEUTROPHILS # 4.2 10^3/uL (1.5-8.5); NEUTROPHILS % 62.5 % (36.0-66.0); PLATELET COUNT, AUTOMATED 179 10^3/uL (150-450); WHITE BLOOD COUNT 6.7 10^3/uL (4.0-10.0)
[2022-06-22 16:51] LABS: ERYTHROCYTE SEDIMENTATION RATE 18 mm/hr (0-30)
[2022-06-22 17:29] LABS: ALBUMIN 3.6 G/DL (3.2-5.2); ALKALINE PHOSPHATASE 118 U/L (46-116); ALT/SGPT 16 U/L (7.0-40); AST/SGOT 22 U/L (<34); BILIRUBIN,DIRECT 0.1 MG/DL (<0.4); BILIRUBIN,TOTAL 0.3 MG/DL (0.3-1.2); BLOOD UREA NITROGEN 13 MG/DL (9-23); CALCIUM LEVEL 9.3 MG/DL (8.5-10.1); CARBON DIOXIDE LEVEL 27 MMOL/L (20-31); CHLORIDE LEVEL 104 MMOL/L (98-107); CREATININE FOR GFR 0.79 MG/DL (0.55-1.30); GLOMERULAR FILTRATION RATE > 60.0 (>51); GLUCOSE, FASTING 101 MG/DL (60-100); POTASSIUM SERUM 4.3 MMOL/L (3.5-5.1); SODIUM LEVEL 140 MMOL/L (136-145)
== END ==
LOC: M SFHCRHEU 13:55
PROVIDERS: ATTEND Internal Medicine
DX: M32.19 Other organ or system involvement in systemic lupus erythematosus (principal)

== ENCOUNTER → 2022-08-29 | Outpatient (CLI) | payer MEDICARE, OTHER ==
[2022-08-29 10:27] LABS: CHOLESTEROL RISK RATIO 3.85 (<5); HDL CHOLESTEROL 53.4 MG/DL (>40); LDL CHOLESTEROL 121.6 MG/DL (<100); NON-HDL-C 152.6 MG/DL
== END ==
LOC: M WUC 08:34
PROVIDERS: ATTEND Family Medicine
DX: Z00.00 Encounter for general adult medical examination without abnormal findings (principal); M32.19 Other organ or system involvement in systemic lupus erythematosus; Z79.899 Other long term (current) drug therapy

== ENCOUNTER → 2022-08-29 | Outpatient (CLI) | payer MEDICARE, OTHER ==
[2022-08-29 10:01] LABS: BASO % 0.5 % (0.0-1.0); EOS # 0.2 10^3/uL (0.0-0.5); EOS % 3.3 % (0.0-3.0); HEMATOCRIT 43.7 % (36.0-47.0); HEMOGLOBIN 13.8 g/dl (12.0-15.5); LYMPH # 1.4 10^3/uL (1.5-5.0); LYMPH % 24.7 % (24.0-44.0); MEAN CORPUSCULAR HEMOGLOBIN 30.2 pg (27.0-33.0); MEAN CORPUSCULAR HGB CONC 31.6 g/dl (32.0-36.5); MEAN CORPUSCULAR VOLUME 95.6 fl (80.0-96.0); MONO # 0.4 10^3/uL (0.0-0.8); NEUTROPHILS # 3.7 10^3/uL (1.5-8.5); NEUTROPHILS % 64.3 % (36.0-66.0); PLATELET COUNT, AUTOMATED 203 10^3/uL (150-450); RED BLOOD COUNT 4.57 10^6/uL (4.00-5.40); WHITE BLOOD COUNT 5.7 10^3/uL (4.0-10.0)
[2022-08-29 10:28] LABS: ALBUMIN 3.6 G/DL (3.2-5.2); ALKALINE PHOSPHATASE 130 U/L (46-116); ALT/SGPT 21 U/L (7.0-40); AST/SGOT 9 U/L (<34); BILIRUBIN,DIRECT 0.1 MG/DL (<0.4); BILIRUBIN,TOTAL 0.3 MG/DL (0.3-1.2); BLOOD UREA NITROGEN 11 MG/DL (9-23); CALCIUM LEVEL 9.1 MG/DL (8.5-10.1); CARBON DIOXIDE LEVEL 30 MMOL/L (20-31); CHLORIDE LEVEL 107 MMOL/L (98-107); CREATININE FOR GFR 0.63 MG/DL (0.55-1.30); GLOMERULAR FILTRATION RATE > 60.0 (>51); GLUCOSE, FASTING 79 MG/DL (60-100); POTASSIUM SERUM 4.7 MMOL/L (3.5-5.1); SODIUM LEVEL 141 MMOL/L (136-145); TOTAL PROTEIN 6.2 G/DL (5.7-8.2)
[2022-08-29 10:45] LABS: ERYTHROCYTE SEDIMENTATION RATE 25 mm/hr (0-30)
== END ==
LOC: M WUC 08:31
PROVIDERS: ATTEND Internal Medicine
DX: M32.19 Other organ or system involvement in systemic lupus erythematosus (principal)

== ENCOUNTER → 2022-10-11 | Outpatient (REF) | payer MEDICARE, OTHER ==
[~2022-10-11] MED LIST changes: +NYST100085 TOP; -NYSTOI TOP
[2022-10-11 17:02] LABS: ALBUMIN 3.8 G/DL (3.2-5.2); ALKALINE PHOSPHATASE 123 U/L (46-116); ALT/SGPT 20 U/L (7.0-40); AST/SGOT 23 U/L (<34); BILIRUBIN,DIRECT 0.1 MG/DL (<0.4); BILIRUBIN,TOTAL 0.3 MG/DL (0.3-1.2); BLOOD UREA NITROGEN 13 MG/DL (9-23); CALCIUM LEVEL 9.5 MG/DL (8.5-10.1); CARBON DIOXIDE LEVEL 27 MMOL/L (20-31); CHLORIDE LEVEL 104 MMOL/L (98-107); GLOMERULAR FILTRATION RATE > 60.0 (>51); GLUCOSE, FASTING 100 MG/DL (60-100); POTASSIUM SERUM 4.5 MMOL/L (3.5-5.1); SODIUM LEVEL 140 MMOL/L (136-145); TOTAL PROTEIN 6.5 G/DL (5.7-8.2)
[2022-10-11 17:31] LABS: BASO # 0.1 10^3/uL (0.0-0.2); BASO % 0.7 % (0.0-1.0); EOS # 0.2 10^3/uL (0.0-0.5); EOS % 2.5 % (0.0-3.0); HEMOGLOBIN 14.4 g/dl (12.0-15.5); LYMPH # 2.1 10^3/uL (1.5-5.0); LYMPH % 28.4 % (24.0-44.0); MEAN CORPUSCULAR HEMOGLOBIN 30.6 pg (27.0-33.0); MEAN CORPUSCULAR VOLUME 95.5 fl (80.0-96.0); MONO # 0.5 10^3/uL (0.0-0.8); MONO % 6.7 % (2.0-8.0); NEUTROPHILS # 4.5 10^3/uL (1.5-8.5); NEUTROPHILS % 61.4 % (36.0-66.0); PLATELET COUNT, AUTOMATED 199 10^3/uL (150-450); RED BLOOD COUNT 4.71 10^6/uL (4.00-5.40); WHITE BLOOD COUNT 7.3 10^3/uL (4.0-10.0)
[2022-10-11 18:11] LABS: ERYTHROCYTE SEDIMENTATION RATE 26 mm/hr (0-30)
== END ==
LOC: M SFHCRHEU 16:10
PROVIDERS: ATTEND Internal Medicine
DX: M32.19 Other organ or system involvement in systemic lupus erythematosus (principal)

== ENCOUNTER → 2022-11-03 | Outpatient (REF) | payer MEDICARE, OTHER ==
[~2022-11-03] MED LIST changes: -HYDR200T3 PO; +HYDR200T46 PO
== END ==
LOC: M SFHCWAGY 15:44
PROVIDERS: ATTEND Nurse Practitioner Family
DX: Z12.4 Encounter for screening for malignant neoplasm of cervix (principal)
CPT/HCPCS: 87624; G0123

== ENCOUNTER → 2022-11-23 | Outpatient (CLI) | payer MEDICARE, BC, OTHER | LOC: M WHC 14:15 | PROVIDERS: ATTEND Nurse Practitioner Family | DX: Z13.820 Encounter for screening for osteoporosis (principal); Z12.31 Encounter for screening mammogram for malignant neoplasm of breast; M85.851 Other specified disorders of bone density and structure, right thigh; M85.852 Other specified disorders of bone density and structure, left thigh; R92.8 Other abnormal and inconclusive findings on diagnostic imaging of breast ==

== ENCOUNTER → 2022-11-23 | Outpatient (CLI) | payer MEDICARE, BC, OTHER | LOC: M WHC 14:16 | PROVIDERS: ATTEND Family Medicine | DX: Z12.31 Encounter for screening mammogram for malignant neoplasm of breast (principal); R92.8 Other abnormal and inconclusive findings on diagnostic imaging of breast ==

== ENCOUNTER → 2022-12-08 | Outpatient (CLI) | payer MEDICARE, BC, OTHER | LOC: M WHC 08:40 | PROVIDERS: ATTEND Family Medicine | DX: R92.2 Inconclusive mammogram (principal) | CPT/HCPCS: 77065; G0279 ==

== ENCOUNTER → 2022-12-15 | Outpatient (CLI) | payer MEDICARE, BC, OTHER ==
[2022-12-15 13:23] LABS: BASO % 0.7 % (0.0-1.0); EOS # 0.2 10^3/uL (0.0-0.5); EOS % 4.1 % (0.0-3.0); HEMATOCRIT 42.9 % (36.0-47.0); HEMOGLOBIN 13.8 g/dl (12.0-15.5); LYMPH # 1.7 10^3/uL (1.5-5.0); LYMPH % 28.3 % (24.0-44.0); MEAN CORPUSCULAR HEMOGLOBIN 30.6 pg (27.0-33.0); MEAN CORPUSCULAR HGB CONC 32.2 g/dl (32.0-36.5); MEAN CORPUSCULAR VOLUME 95.1 fl (80.0-96.0); MONO # 0.5 10^3/uL (0.0-0.8); MONO % 8.5 % (2.0-8.0); NEUTROPHILS # 3.4 10^3/uL (1.5-8.5); NEUTROPHILS % 57.9 % (36.0-66.0); PLATELET COUNT, AUTOMATED 195 10^3/uL (150-450); RED BLOOD COUNT 4.51 10^6/uL (4.00-5.40); WHITE BLOOD COUNT 5.9 10^3/uL (4.0-10.0)
[2022-12-15 13:42] LABS: ALBUMIN 3.6 G/DL (3.2-5.2); ALKALINE PHOSPHATASE 137 U/L (46-116); ALT/SGPT 14 U/L (7.0-40); AST/SGOT 15 U/L (<34); BILIRUBIN,DIRECT 0.1 MG/DL (<0.4); BILIRUBIN,TOTAL 0.4 MG/DL (0.3-1.2); BLOOD UREA NITROGEN 9 MG/DL (9-23); CALCIUM LEVEL 9.1 MG/DL (8.5-10.1); CARBON DIOXIDE LEVEL 28 MMOL/L (20-31); CHLORIDE LEVEL 106 MMOL/L (98-107); CREATININE FOR GFR 0.64 MG/DL (0.55-1.30); GLOMERULAR FILTRATION RATE > 60.0 (>51); GLUCOSE, FASTING 77 MG/DL (60-100); POTASSIUM SERUM 5.1 MMOL/L (3.5-5.1); SODIUM LEVEL 139 MMOL/L (136-145); TOTAL PROTEIN 6.1 G/DL (5.7-8.2)
[2022-12-15 14:20] LABS: ERYTHROCYTE SEDIMENTATION RATE 20 mm/hr (0-30)
== END ==
LOC: M WUC 10:08
PROVIDERS: ATTEND Internal Medicine
DX: M32.19 Other organ or system involvement in systemic lupus erythematosus (principal)

== ENCOUNTER → 2023-02-17 | Outpatient (CLI) | payer MEDICARE, BC, OTHER ==
[2023-02-17 13:40] LABS: BASO % 0.5 % (0.0-1.0); EOS % 0.6 % (0.0-3.0); HEMATOCRIT 45.4 % (36.0-47.0); HEMOGLOBIN 14.4 g/dl (12.0-15.5); LYMPH % 32.5 % (24.0-44.0); MEAN CORPUSCULAR HEMOGLOBIN 30.4 pg (27.0-33.0); MEAN CORPUSCULAR HGB CONC 31.7 g/dl (32.0-36.5); MEAN CORPUSCULAR VOLUME 95.8 fl (80.0-96.0); MONO # 0.5 10^3/uL (0.0-0.8); MONO % 8.7 % (2.0-8.0); NEUTROPHILS # 3.6 10^3/uL (1.5-8.5); NEUTROPHILS % 57.5 % (36.0-66.0); PLATELET COUNT, AUTOMATED 201 10^3/uL (150-450); RED BLOOD COUNT 4.74 10^6/uL (4.00-5.40); WHITE BLOOD COUNT 6.2 10^3/uL (4.0-10.0)
[2023-02-17 14:08] LABS: ERYTHROCYTE SEDIMENTATION RATE 27 mm/hr (0-30)
[2023-02-17 14:09] LABS: ALBUMIN 3.6 G/DL (3.2-5.2); ALKALINE PHOSPHATASE 147 U/L (46-116); ALT/SGPT 17 U/L (7.0-40); AST/SGOT 19 U/L (<34); BILIRUBIN,TOTAL 0.4 MG/DL (0.3-1.2); BLOOD UREA NITROGEN 11 MG/DL (9-23); CARBON DIOXIDE LEVEL 28 MMOL/L (20-31); CHLORIDE LEVEL 107 MMOL/L (98-107); GLOMERULAR FILTRATION RATE > 60.0 (>51); GLUCOSE, FASTING 86 MG/DL (60-100); POTASSIUM SERUM 4.4 MMOL/L (3.5-5.1); SODIUM LEVEL 141 MMOL/L (136-145); TOTAL PROTEIN 6.3 G/DL (5.7-8.2)
[2023-02-17 14:23] LABS: BILIRUBIN,DIRECT 0.1 MG/DL (<0.4); CALCIUM LEVEL 8.8 MG/DL (8.5-10.1)
== END ==
LOC: M WUC 09:45
PROVIDERS: ATTEND Internal Medicine
DX: M32.19 Other organ or system involvement in systemic lupus erythematosus (principal)

== ENCOUNTER → 2023-05-23 | Outpatient (CLI) | payer MEDICARE, BC, OTHER ==
[2023-05-23 12:51] LABS: BASO % 0.7 % (0.0-1.0); EOS % 0.4 % (0.0-3.0); HEMATOCRIT 44.5 % (36.0-47.0); HEMOGLOBIN 14.2 g/dl (12.0-15.5); LYMPH # 1.6 10^3/uL (1.5-5.0); LYMPH % 28.9 % (24.0-44.0); MEAN CORPUSCULAR HEMOGLOBIN 29.9 pg (27.0-33.0); MEAN CORPUSCULAR HGB CONC 31.9 g/dl (32.0-36.5); MEAN CORPUSCULAR VOLUME 93.7 fl (80.0-96.0); MONO # 0.4 10^3/uL (0.0-0.8); MONO % 6.7 % (2.0-8.0); NEUTROPHILS # 3.4 10^3/uL (1.5-8.5); NEUTROPHILS % 63.1 % (36.0-66.0); PLATELET COUNT, AUTOMATED 200 10^3/uL (150-450); RED BLOOD COUNT 4.75 10^6/uL (4.00-5.40); WHITE BLOOD COUNT 5.4 10^3/uL (4.0-10.0)
[2023-05-23 13:00] LABS: ERYTHROCYTE SEDIMENTATION RATE 29 mm/hr (0-30)
[2023-05-23 13:13] LABS: C REACTIVE PROTEIN QUANTITATIV < 0.40 MG/DL (<1.0)
[2023-05-23 13:14] LABS: ALBUMIN 3.5 G/DL (3.2-5.2); ALKALINE PHOSPHATASE 123 U/L (46-116); ALT/SGPT 22 U/L (7.0-40); AST/SGOT 26 U/L (<34); BILIRUBIN,DIRECT 0.1 MG/DL (<0.4); BILIRUBIN,TOTAL 0.3 MG/DL (0.3-1.2); BLOOD UREA NITROGEN 10 MG/DL (9-23); CALCIUM LEVEL 9.2 MG/DL (8.5-10.1); CARBON DIOXIDE LEVEL 28 MMOL/L (20-31); CHLORIDE LEVEL 106 MMOL/L (98-107); CREATININE FOR GFR 0.66 MG/DL (0.55-1.30); GLOMERULAR FILTRATION RATE > 60.0 (>51); GLUCOSE, FASTING 91 MG/DL (60-100); POTASSIUM SERUM 4.9 MMOL/L (3.5-5.1); SODIUM LEVEL 139 MMOL/L (136-145); TOTAL PROTEIN 6.2 G/DL (5.7-8.2)
== END ==
LOC: M WUC 10:07
PROVIDERS: ATTEND Internal Medicine
DX: M32.19 Other organ or system involvement in systemic lupus erythematosus (principal)

== ENCOUNTER → 2023-08-08 | Outpatient (CLI) | payer MEDICARE, BC, OTHER ==
[2023-08-08 15:12] LABS: HEMATOCRIT 44.8 % (36.0-47.0); HEMOGLOBIN 14.5 g/dl (12.0-15.5); MEAN CORPUSCULAR HEMOGLOBIN 30.9 pg (27.0-33.0); MEAN CORPUSCULAR HGB CONC 32.4 g/dl (32.0-36.5); MEAN CORPUSCULAR VOLUME 95.3 fl (80.0-96.0); PLATELET COUNT, AUTOMATED 197 10^3/uL (150-450); WHITE BLOOD COUNT 5.7 10^3/uL (4.0-10.0)
[2023-08-08 15:43] LABS: C REACTIVE PROTEIN QUANTITATIV < 0.40 MG/DL (<1.0)
[2023-08-08 15:45] LABS: ALBUMIN 3.5 G/DL (3.2-5.2); ALKALINE PHOSPHATASE 120 U/L (46-116); ALT/SGPT 41 U/L (7.0-40); AST/SGOT 39 U/L (<34); BILIRUBIN,DIRECT 0.1 MG/DL (<0.4); BILIRUBIN,TOTAL 0.3 MG/DL (0.3-1.2); BLOOD UREA NITROGEN 10 MG/DL (9-23); CARBON DIOXIDE LEVEL 28 MMOL/L (20-31); CHLORIDE LEVEL 106 MMOL/L (98-107); CREATININE FOR GFR 0.59 MG/DL (0.55-1.30); GLOMERULAR FILTRATION RATE > 60.0 (>51); GLUCOSE, FASTING 88 MG/DL (60-100); POTASSIUM SERUM 4.5 MMOL/L (3.5-5.1); SODIUM LEVEL 139 MMOL/L (136-145); TOTAL PROTEIN 6.2 G/DL (5.7-8.2)
[2023-08-08 16:28] LABS: ATYPICAL LYMPH 8 % (0-5); BASOPHILS 1 % (0-1); LYMPHOCYTES 32 % (16-44); MONOCYTES 1 % (0-5); NEUTROPHILS 58 % (28-66); PLATELET ESTIMATE NORMAL (NORMAL)
[2023-08-08 16:56] LABS: ERYTHROCYTE SEDIMENTATION RATE 16 mm/hr (0-30)
[2023-08-09 15:39] LABS: CALCIUM LEVEL 8.9 MG/DL (8.5-10.1)
== END ==
LOC: M WUC 10:45
PROVIDERS: ATTEND Internal Medicine
DX: M32.19 Other organ or system involvement in systemic lupus erythematosus (principal)

== ENCOUNTER → 2023-08-08 | Outpatient (CLI) | payer MEDICARE, BC, OTHER ==
[2023-08-08 15:28] LABS: INR 4.36
== END ==
LOC: M WUC 10:50
PROVIDERS: ATTEND Family Medicine
DX: Z79.01 Long term (current) use of anticoagulants (principal)

== ENCOUNTER → 2023-08-18 | Outpatient (CLI) | payer MEDICARE, BC, OTHER ==
[~2023-08-18] MED LIST changes: +NYST100084; -NYST10OI
[2023-08-18 12:54] LABS: ALBUMIN 3.6 G/DL (3.2-5.2); BILIRUBIN,DIRECT 0.1 MG/DL (<0.4); BILIRUBIN,TOTAL 0.4 MG/DL (0.3-1.2); TOTAL PROTEIN 6.1 G/DL (5.7-8.2)
== END ==
LOC: M WUC 09:45
PROVIDERS: ATTEND Internal Medicine
DX: R74.8 Abnormal levels of other serum enzymes (principal)

== ENCOUNTER → 2023-10-05 | Outpatient (CLI) | payer MEDICARE, BC, OTHER ==
[2023-10-05 14:44] LABS: BASO % 0.7 % (0.0-1.0); EOS # 0.1 10^3/uL (0.0-0.5); EOS % 1.1 % (0.0-3.0); HEMATOCRIT 42.6 % (36.0-47.0); HEMOGLOBIN 13.5 g/dl (12.0-15.5); LYMPH # 1.5 10^3/uL (1.5-5.0); LYMPH % 25.6 % (24.0-44.0); MEAN CORPUSCULAR HEMOGLOBIN 30.6 pg (27.0-33.0); MEAN CORPUSCULAR HGB CONC 31.7 g/dl (32.0-36.5); MEAN CORPUSCULAR VOLUME 96.6 fl (80.0-96.0); MONO # 0.4 10^3/uL (0.0-0.8); MONO % 7.7 % (2.0-8.0); NEUTROPHILS # 3.7 10^3/uL (1.5-8.5); NEUTROPHILS % 64.7 % (36.0-66.0); PLATELET COUNT, AUTOMATED 206 10^3/uL (150-450); RED BLOOD COUNT 4.41 10^6/uL (4.00-5.40); WHITE BLOOD COUNT 5.7 10^3/uL (4.0-10.0)
[2023-10-05 14:52] LABS: ERYTHROCYTE SEDIMENTATION RATE 19 mm/hr (0-30)
[2023-10-05 15:13] LABS: ALBUMIN 3.4 G/DL (3.2-5.2); ALKALINE PHOSPHATASE 150 U/L (46-116); ALT/SGPT 20 U/L (7.0-40); AST/SGOT 21 U/L (<34); BILIRUBIN,DIRECT 0.1 MG/DL (<0.4); BILIRUBIN,TOTAL 0.3 MG/DL (0.3-1.2); BLOOD UREA NITROGEN 9 MG/DL (9-23); CALCIUM LEVEL 9.2 MG/DL (8.5-10.1); CARBON DIOXIDE LEVEL 29 MMOL/L (20-31); CHLORIDE LEVEL 108 MMOL/L (98-107); CREATININE FOR GFR 0.61 MG/DL (0.55-1.30); GLOMERULAR FILTRATION RATE > 60.0 (>51); GLUCOSE, FASTING 88 MG/DL (60-100); POTASSIUM SERUM 4.7 MMOL/L (3.5-5.1); SODIUM LEVEL 142 MMOL/L (136-145); TOTAL PROTEIN 6.1 G/DL (5.7-8.2)
== END ==
LOC: M WUC 10:13
PROVIDERS: ATTEND Internal Medicine
DX: M32.19 Other organ or system involvement in systemic lupus erythematosus (principal)

== ENCOUNTER → 2023-10-12 | Outpatient (REF) | payer MEDICARE, BC ==
[2023-10-12 19:05] LABS: COMPLEMENT C3 152.5 MG/DL (90.0-170.0)
[2023-10-12 19:06] LABS: COMPLEMENT C4 23.2 MG/DL (12-36)
== END ==
LOC: M SFHCRHEU 12:39
PROVIDERS: ATTEND Internal Medicine
DX: M32.19 Other organ or system involvement in systemic lupus erythematosus (principal)

== ENCOUNTER → 2023-11-01 | Outpatient (CLI) | payer MEDICARE, BC ==
[2023-11-01 19:18] LABS: BASO % 0.6 % (0.0-1.0); EOS # 0.1 10^3/uL (0.0-0.5); EOS % 0.9 % (0.0-3.0); HEMATOCRIT 43.5 % (36.0-47.0); HEMOGLOBIN 13.5 g/dl (12.0-15.5); LYMPH # 1.4 10^3/uL (1.5-5.0); LYMPH % 25.6 % (24.0-44.0); MEAN CORPUSCULAR HEMOGLOBIN 30.3 pg (27.0-33.0); MEAN CORPUSCULAR VOLUME 97.5 fl (80.0-96.0); MONO # 0.4 10^3/uL (0.0-0.8); NEUTROPHILS # 3.4 10^3/uL (1.5-8.5); NEUTROPHILS % 64.5 % (36.0-66.0); PLATELET COUNT, AUTOMATED 187 10^3/uL (150-450); RED BLOOD COUNT 4.46 10^6/uL (4.00-5.40); WHITE BLOOD COUNT 5.3 10^3/uL (4.0-10.0)
[2023-11-01 19:35] LABS: C REACTIVE PROTEIN QUANTITATIV < 0.40 MG/DL (<1.0)
[2023-11-01 19:37] LABS: ALBUMIN 3.4 G/DL (3.2-5.2); ALKALINE PHOSPHATASE 139 U/L (46-116); ALT/SGPT 20 U/L (7.0-40); AST/SGOT 21 U/L (<34); BILIRUBIN,DIRECT 0.1 MG/DL (<0.4); BILIRUBIN,TOTAL 0.3 MG/DL (0.3-1.2); BLOOD UREA NITROGEN 10 MG/DL (9-23); CALCIUM LEVEL 9.1 MG/DL (8.5-10.1); CARBON DIOXIDE LEVEL 27 MMOL/L (20-31); CHLORIDE LEVEL 107 MMOL/L (98-107); CREATININE FOR GFR 0.63 MG/DL (0.55-1.30); GLOMERULAR FILTRATION RATE > 60.0 (>51); GLUCOSE, FASTING 89 MG/DL (60-100); IRON (FE) 63 UG/DL (50-170); PERCENT SATURATION 21.8 % (13.2-45.0); SODIUM LEVEL 139 MMOL/L (136-145); TOTAL IRON BINDING CAPACITY 289 UG/DL (250-425); TOTAL PROTEIN 5.9 G/DL (5.7-8.2)
[2023-11-01 19:38] LABS: ERYTHROCYTE SEDIMENTATION RATE 16 mm/hr (0-30); TOTAL 25(OH) VITAMIN D 38.3 NG/ML (20.0-100.0)
[2023-11-01 19:39] LABS: FERRITIN 89.8 NG/ML (7.3-270.7)
[2023-11-01 19:44] LABS: HEPATITIS B SURFACE ANTIBODY NEGATIVE (POSITIVE)
[2023-11-01 19:56] LABS: HEPATITIS B SURFACE ANTIGEN NEGATIVE (NEGATIVE)
[2023-11-01 20:16] LABS: HEPATITIS C VIRUS ABY INDEX < 0.02 INDEX (<0.8)
[2023-11-03 11:28] LABS: HEPATITIS B CORE ANTIBODY IGG NON-REACTIVE (NON-REACTIVE)
== END ==
LOC: M WUC 10:38
PROVIDERS: ATTEND Internal Medicine
DX: M32.19 Other organ or system involvement in systemic lupus erythematosus (principal); Z79.899 Other long term (current) drug therapy; Z11.59 Encounter for screening for other viral diseases

== ENCOUNTER → 2023-12-07 | Outpatient (CLI) | payer MEDICARE, BC | LOC: M WHC 11:38 | PROVIDERS: ATTEND Nurse Practitioner Family | DX: Z12.31 Encounter for screening mammogram for malignant neoplasm of breast (principal); Z80.3 Family history of malignant neoplasm of breast; R92.333 Mammographic heterogeneous density, bilateral breasts ==

== ENCOUNTER → 2024-01-02 | Outpatient (CLI) | payer MEDICARE, BC ==
[2024-01-02 13:26] LABS: APPEARANCE, URINE CLEAR (CLEAR); BACTERIA, URINE AUTO NEGATIVE (NEGATIVE); BILIRUBIN, URINE AUTO NEGATIVE (NEGATIVE); BLOOD, URINE BLOOD NEGATIVE (NEGATIVE); COLOR, URINE YELLOW (YELLOW); GLUCOSE, URINE (UA) AUTO NEGATIVE (NEGATIVE); KETONE, URINE AUTO NEGATIVE (NEGATIVE); LEUKOCYTE ESTERASE, URINE AUTO 1+ (NEGATIVE); NITRITE, URINE AUTO NEGATIVE (NEGATIVE); PROTEIN, URINE AUTO NEGATIVE (NEGATIVE); RBC, URINE AUTO 2 /HPF (0-3); SPECIFIC GRAVITY URINE AUTO 1.005 (1.002-1.035); SQUAMOUS EPITHELIAL CELL UR AU 2 /HPF (0-6); UROBILINOGEN, URINE AUTO 0.2 mg/dL (0.0-2.0); WBC, URINE AUTO 1 /HPF (0-3)
[2024-01-02 13:52] LABS: COMPLEMENT C3 150.5 MG/DL (90.0-170.0); COMPLEMENT C4 22.2 MG/DL (12-36)
[2024-01-02 14:15] LABS: CREATININE,RANDOM URINE 23.8 MG/DL
[2024-01-02 14:17] LABS: TOTAL PROTEIN,RANDOM URINE < 6.0 MG/DL (0.0-14.0)
[2024-01-05 13:08] LABS: QuantiFERON-TB Gold Plus NEGATIVE (NEGATIVE)
[2024-01-06 22:13] LABS: COMPLEMENT TOTAL (CH50) 59 U/mL (31-60)
== END ==
LOC: M PLALAB 10:15
PROVIDERS: ATTEND Internal Medicine
DX: M32.19 Other organ or system involvement in systemic lupus erythematosus (principal)

== ENCOUNTER → 2024-01-16 | Outpatient (CLI) | payer MEDICARE, BC ==
[2024-01-16 15:49] LABS: BASO % 0.4 % (0.0-1.0); EOS # 0.2 10^3/uL (0.0-0.5); EOS % 2.2 % (0.0-3.0); HEMOGLOBIN 14.1 g/dl (12.0-15.5); LYMPH # 2.1 10^3/uL (1.5-5.0); LYMPH % 31.2 % (24.0-44.0); MEAN CORPUSCULAR HEMOGLOBIN 30.5 pg (27.0-33.0); MEAN CORPUSCULAR VOLUME 95.2 fl (80.0-96.0); MONO # 0.5 10^3/uL (0.0-0.8); MONO % 7.5 % (2.0-8.0); NEUTROPHILS % 58.6 % (36.0-66.0); PLATELET COUNT, AUTOMATED 214 10^3/uL (150-450); RED BLOOD COUNT 4.62 10^6/uL (4.00-5.40); WHITE BLOOD COUNT 6.8 10^3/uL (4.0-10.0)
[2024-01-16 16:10] LABS: ALBUMIN 3.6 G/DL (3.2-5.2); ALKALINE PHOSPHATASE 161 U/L (46-116); ALT/SGPT 20 U/L (7.0-40); AST/SGOT 18 U/L (<34); BILIRUBIN,DIRECT < 0.1 MG/DL (<0.4); BILIRUBIN,TOTAL 0.2 MG/DL (0.3-1.2); BLOOD UREA NITROGEN 8 MG/DL (9-23); CALCIUM LEVEL 9.2 MG/DL (8.5-10.1); CARBON DIOXIDE LEVEL 32 MMOL/L (20-31); CHLORIDE LEVEL 106 MMOL/L (98-107); CREATININE FOR GFR 0.68 MG/DL (0.55-1.30); GLOMERULAR FILTRATION RATE > 60.0 (>51); GLUCOSE, FASTING 82 MG/DL (60-100); POTASSIUM SERUM 4.7 MMOL/L (3.5-5.1); SODIUM LEVEL 139 MMOL/L (136-145); TOTAL PROTEIN 6.3 G/DL (5.7-8.2)
[2024-01-16 16:13] LABS: ERYTHROCYTE SEDIMENTATION RATE 18 mm/hr (0-30)
== END ==
LOC: M PLALAB 13:55
PROVIDERS: ATTEND Internal Medicine
DX: M32.19 Other organ or system involvement in systemic lupus erythematosus (principal)

== ENCOUNTER → 2024-02-26 | Outpatient (REF) | payer MEDICARE, BC | LOC: M SFHCRHEU 16:26 | PROVIDERS: ATTEND Internal Medicine | DX: M32.19 Other organ or system involvement in systemic lupus erythematosus (principal) ==

== ENCOUNTER → 2024-02-27 | Outpatient (CLI) | payer MEDICARE, BC ==
[2024-02-27 18:00] LABS: APPEARANCE, URINE HAZY (CLEAR); BACTERIA, URINE AUTO 1+ (NEGATIVE); BILIRUBIN, URINE AUTO NEGATIVE (NEGATIVE); BLOOD, URINE BLOOD NEGATIVE (NEGATIVE); COLOR, URINE AMBER (YELLOW); GLUCOSE, URINE (UA) AUTO NEGATIVE (NEGATIVE); KETONE, URINE AUTO NEGATIVE (NEGATIVE); LEUKOCYTE ESTERASE, URINE AUTO 3+ (NEGATIVE); MUCUS, URINE SMALL (NEGATIVE); NITRITE, URINE AUTO NEGATIVE (NEGATIVE); PROTEIN, URINE AUTO NEGATIVE (NEGATIVE); RBC, URINE AUTO 3 /HPF (0-3); SPECIFIC GRAVITY URINE AUTO 1.013 (1.002-1.035); SQUAMOUS EPITHELIAL CELL UR AU 6 /HPF (0-6); UROBILINOGEN, URINE AUTO 0.2 mg/dL (0.0-2.0); WBC, URINE AUTO 9 /HPF (0-3)
[2024-02-27 18:15] LABS: TOTAL PROTEIN,RANDOM URINE 11.8 MG/DL (0.0-14.0)
[2024-02-27 18:21] LABS: CREATININE,RANDOM URINE 57.4 MG/DL
[2024-02-27 18:25] LABS: COMPLEMENT C3 163.8 MG/DL (90.0-170.0); COMPLEMENT C4 22.6 MG/DL (12-36)
== END ==
LOC: M WUC 11:07
PROVIDERS: ATTEND Internal Medicine
DX: M32.19 Other organ or system involvement in systemic lupus erythematosus (principal)

== ENCOUNTER → 2024-04-15 | Outpatient (CLI) | payer MEDICARE, BC | LOC: M SLEEP 20:00 | PROVIDERS: ATTEND Internal Medicine Pulmonary Disease | DX: G47.33 Obstructive sleep apnea (adult) (pediatric) (principal) ==

== ENCOUNTER → 2024-05-23 | Outpatient (CLI) | payer MEDICARE, BC | LOC: M SLEEP 20:00 | PROVIDERS: ATTEND Internal Medicine Pulmonary Disease | DX: G47.33 Obstructive sleep apnea (adult) (pediatric) (principal) ==

== ENCOUNTER → 2024-06-05 | Outpatient (CLI) | payer MEDICARE, BC ==
[2024-06-05 14:13] LABS: BASO % 0.7 % (0.0-1.0); EOS # 0.2 10^3/uL (0.0-0.5); EOS % 3.4 % (0.0-3.0); HEMATOCRIT 44.6 % (36.0-47.0); HEMOGLOBIN 14.2 g/dl (12.0-15.5); LYMPH # 1.8 10^3/uL (1.5-5.0); MEAN CORPUSCULAR HGB CONC 31.8 g/dl (32.0-36.5); MEAN CORPUSCULAR VOLUME 94.3 fl (80.0-96.0); MONO # 0.5 10^3/uL (0.0-0.8); NEUTROPHILS # 3.2 10^3/uL (1.5-8.5); NEUTROPHILS % 55.7 % (36.0-66.0); PLATELET COUNT, AUTOMATED 191 10^3/uL (150-450); RED BLOOD COUNT 4.73 10^6/uL (4.00-5.40); WHITE BLOOD COUNT 5.8 10^3/uL (4.0-10.0)
[2024-06-05 14:19] LABS: ERYTHROCYTE SEDIMENTATION RATE 17 mm/hr (0-30)
[2024-06-05 16:39] LABS: ALBUMIN 3.7 G/DL (3.2-5.2); ALKALINE PHOSPHATASE 136 U/L (35-104); ALT/SGPT 16 U/L (7.0-40); AST/SGOT 19 U/L (<34); BILIRUBIN,DIRECT < 0.1 MG/DL (<0.4); BILIRUBIN,TOTAL 0.4 MG/DL (0.3-1.2); BLOOD UREA NITROGEN 13 MG/DL (9-23); C REACTIVE PROTEIN QUANTITATIV < 0.50 MG/DL (<1.0); CARBON DIOXIDE LEVEL 29 MMOL/L (20-31); CHLORIDE LEVEL 107 MMOL/L (98-107); CREATININE FOR GFR 0.65 MG/DL (0.55-1.30); GLOMERULAR FILTRATION RATE > 60.0 (>51); GLUCOSE, FASTING 80 MG/DL (60-100); POTASSIUM SERUM 5.1 MMOL/L (3.5-5.1); SODIUM LEVEL 142 MMOL/L (136-145); TOTAL PROTEIN 6.4 G/DL (5.7-8.2)
== END ==
LOC: M WUC 10:23
PROVIDERS: ATTEND Internal Medicine
DX: M32.19 Other organ or system involvement in systemic lupus erythematosus (principal)

== ENCOUNTER → 2024-09-05 | Outpatient (CLI) | payer MEDICARE, BC ==
[2024-09-05 12:23] LABS: BASO % 0.7 % (0.0-1.0); EOS # 0.2 10^3/uL (0.0-0.5); EOS % 3.5 % (0.0-3.0); HEMATOCRIT 44.8 % (36.0-47.0); LYMPH # 0.9 10^3/uL (1.5-5.0); LYMPH % 14.7 % (24.0-44.0); MEAN CORPUSCULAR HEMOGLOBIN 30.2 pg (27.0-33.0); MEAN CORPUSCULAR HGB CONC 31.3 g/dl (32.0-36.5); MEAN CORPUSCULAR VOLUME 96.8 fl (80.0-96.0); MONO # 0.5 10^3/uL (0.0-0.8); MONO % 7.8 % (2.0-8.0); NEUTROPHILS # 4.2 10^3/uL (1.5-8.5); NEUTROPHILS % 72.3 % (36.0-66.0); PLATELET COUNT, AUTOMATED 179 10^3/uL (150-450); RED BLOOD COUNT 4.63 10^6/uL (4.00-5.40); WHITE BLOOD COUNT 5.8 10^3/uL (4.0-10.0)
[2024-09-05 12:37] LABS: ERYTHROCYTE SEDIMENTATION RATE 20 mm/hr (0-30)
[2024-09-05 12:42] LABS: C REACTIVE PROTEIN QUANTITATIV 0.86 MG/DL (<1.0)
[2024-09-05 12:43] LABS: TOTAL 25(OH) VITAMIN D 36.1 NG/ML (20.0-100.0)
[2024-09-05 12:52] LABS: ALBUMIN 3.6 G/DL (3.2-5.2); ALKALINE PHOSPHATASE 158 U/L (35-104); ALT/SGPT 22 U/L (7.0-40); AST/SGOT 26 U/L (<34); BILIRUBIN,DIRECT < 0.1 MG/DL (<0.4); BILIRUBIN,TOTAL 0.3 MG/DL (0.3-1.2); BLOOD UREA NITROGEN 9 MG/DL (9-23); CALCIUM LEVEL 9.4 MG/DL (8.5-10.1); CARBON DIOXIDE LEVEL 30 MMOL/L (20-31); CHLORIDE LEVEL 106 MMOL/L (98-107); CREATININE FOR GFR 0.64 MG/DL (0.55-1.30); GLOMERULAR FILTRATION RATE > 90.0 (>51); GLUCOSE, FASTING 95 MG/DL (60-100); POTASSIUM SERUM 4.5 MMOL/L (3.5-5.1); SODIUM LEVEL 143 MMOL/L (136-145); TOTAL PROTEIN 6.3 G/DL (5.7-8.2)
== END ==
LOC: M WUC 08:40
PROVIDERS: ATTEND Internal Medicine
DX: M32.19 Other organ or system involvement in systemic lupus erythematosus (principal); Z79.899 Other long term (current) drug therapy

== ENCOUNTER → 2024-09-05 | Outpatient (CLI) | payer MEDICARE, BC ==
[2024-09-05 12:36] LABS: CHOLESTEROL RISK RATIO 3.69 (<5); HDL CHOLESTEROL 52.3 MG/DL (>40); LDL CHOLESTEROL 103.9 MG/DL (<100); NON-HDL-C 140.7 MG/DL
== END ==
LOC: M WUC 08:42
PROVIDERS: ATTEND Family Medicine
DX: Z00.00 Encounter for general adult medical examination without abnormal findings (principal)

== ENCOUNTER → 2024-12-03 | Outpatient (CLI) | payer MEDICARE, BC ==
[2024-12-03 12:12] LABS: BASO # 0.0 10^3/uL (0.0-0.2); BASO % 0.5 % (0.0-1.0); EOS # 0.2 10^3/uL (0.0-0.5); EOS % 3.2 % (0.0-3.0); LYMPH # 1.9 10^3/uL (1.5-5.0); LYMPH % 33.0 % (24.0-44.0); MONO # 0.5 10^3/uL (0.0-0.8); MONO % 8.3 % (2.0-8.0); NEUTROPHILS # 3.2 10^3/uL (1.5-8.5); NEUTROPHILS % 54.7 % (36.0-66.0); PLATELET COUNT, AUTOMATED 181 10^3/uL (150-450)
[2024-12-03 12:18] LABS: ERYTHROCYTE SEDIMENTATION RATE 14 mm/hr (0-30)
[2024-12-03 12:40] LABS: ALT/SGPT 20 U/L (7.0-40); AST/SGOT 25 U/L (<34); C REACTIVE PROTEIN QUANTITATIV < 0.50 MG/DL (<1.0); CALCIUM LEVEL 9.3 MG/DL (8.5-10.1); CARBON DIOXIDE LEVEL 28 MMOL/L (20-31); CHLORIDE LEVEL 105 MMOL/L (98-107); CREATININE FOR GFR 0.72 MG/DL (0.55-1.30); GLOMERULAR FILTRATION RATE > 90.0 (>51); POTASSIUM SERUM 5.1 MMOL/L (3.5-5.1); SODIUM LEVEL 143 MMOL/L (136-145)
== END ==
LOC: M WUC 10:17
PROVIDERS: ATTEND Internal Medicine
DX: M32.19 Other organ or system involvement in systemic lupus erythematosus (principal)

== ENCOUNTER → 2025-02-17 | Outpatient (CLI) | payer MEDICARE, BC ==
[~2025-02-17] MED LIST changes: -DIPH50CA PO; +DIPH50CA31 PO
[2025-02-17 13:06] LABS: BASO # 0.1 10^3/uL (0.0-0.2); BASO % 0.8 % (0.0-1.0); EOS # 0.2 10^3/uL (0.0-0.5); EOS % 2.9 % (0.0-3.0); LYMPH # 1.9 10^3/uL (1.5-5.0); LYMPH % 29.7 % (24.0-44.0); MONO # 0.5 10^3/uL (0.0-0.8); MONO % 6.9 % (2.0-8.0); NEUTROPHILS # 3.9 10^3/uL (1.5-8.5); NEUTROPHILS % 59.2 % (36.0-66.0); PLATELET COUNT, AUTOMATED 220 10^3/uL (150-450)
[2025-02-17 13:14] LABS: ERYTHROCYTE SEDIMENTATION RATE 22 mm/hr (0-30)
[2025-02-17 13:36] LABS: ALT/SGPT 15 U/L (7.0-40); AST/SGOT 24 U/L (<34); C REACTIVE PROTEIN QUANTITATIV < 0.50 MG/DL (<1.0); CALCIUM LEVEL 9.1 MG/DL (8.5-10.1); CARBON DIOXIDE LEVEL 27 MMOL/L (20-31); CHLORIDE LEVEL 105 MMOL/L (98-107); CREATININE FOR GFR 0.65 MG/DL (0.55-1.30); GLOMERULAR FILTRATION RATE > 90.0 (>51); POTASSIUM SERUM 5.3 MMOL/L (3.5-5.1); SODIUM LEVEL 141 MMOL/L (136-145)
== END ==
LOC: M WUC 10:44
PROVIDERS: ATTEND Internal Medicine
DX: M32.19 Other organ or system involvement in systemic lupus erythematosus (principal)

== ENCOUNTER → 2025-04-03 | Outpatient (CLI) | payer MEDICARE, BC ==
[2025-04-03 12:47] LABS: BASO # 0.0 10^3/uL (0.0-0.2); BASO % 0.4 % (0.0-1.0); EOS # 0.2 10^3/uL (0.0-0.5); EOS % 3.6 % (0.0-3.0); LYMPH # 2.0 10^3/uL (1.5-5.0); LYMPH % 29.2 % (24.0-44.0); MONO # 0.6 10^3/uL (0.0-0.8); MONO % 8.7 % (2.0-8.0); NEUTROPHILS # 3.9 10^3/uL (1.5-8.5); NEUTROPHILS % 57.7 % (36.0-66.0); PLATELET COUNT, AUTOMATED 205 10^3/uL (150-450)
[2025-04-03 13:05] LABS: ALT/SGPT 20 U/L (7.0-40); AST/SGOT 22 U/L (<34); C REACTIVE PROTEIN QUANTITATIV < 0.50 MG/DL (<1.0); CALCIUM LEVEL 9.3 MG/DL (8.5-10.1); CARBON DIOXIDE LEVEL 28 MMOL/L (20-31); CHLORIDE LEVEL 106 MMOL/L (98-107); CREATININE FOR GFR 0.74 MG/DL (0.55-1.30); GLOMERULAR FILTRATION RATE > 90.0 (>51); POTASSIUM SERUM 4.9 MMOL/L (3.5-5.1); SODIUM LEVEL 143 MMOL/L (136-145)
== END ==
LOC: M WUC 09:45
PROVIDERS: ATTEND Internal Medicine
DX: M32.19 Other organ or system involvement in systemic lupus erythematosus (principal)